=== PATIENT | male | born 1935 | race Caucasian/White ===

== ENCOUNTER 2017-04-13 00:29 | Inpatient (IN) | payer OTHER ==
[2017-04-13] MEDS ORDERED: ONDANSETRON 4 MG/2 ML VIAL ONE ×2 (00:34→03:48)
[2017-04-13] MEDS ORDERED: HYDROmorphONE/DILAUDID 1 MG/ML INJ ONE (00:35)
[2017-04-13] MEDS ORDERED: ONDANSETRON 4 MG/2 ML VIAL IVP ONE ×2 (00:36→01:47)
[2017-04-13] MEDS ORDERED: NS 1,000 ML IV ONE ×2 (00:36→01:47)
[2017-04-13] MEDS ORDERED: HYDROmorphONE/DILAUDID 1 MG/ML INJ IVP ONE ×3 (00:36→03:05)
--- NOTE | 2017-04-13 00:43 | EDPHY ---
H & P HPI/ROS: HPI CHIEF COMPLAINT: Nausea, vomiting, abdominal pain HISTORY OF PRESENT ILLNESS: This patient is a very pleasant 82-year-old male presents emergency room with nausea vomiting and severe 10/10 diffuse abdominal pain. Patient reports that around 11 o'clock at night this pain started with associated nausea he vomited 1 time. Nonbilious nonbloody. The pain does wrap around to his back. He denies any chest pain or shortness of breath. His main complaint is severe 10/10 abdominal pain mid abdomen. He denies groin pain or leg pain. Denies arm pain denies chest pain shortness of breath or neck pain. Pain is relentless since 11:00 p.m.. States feels very similar to gallstone pancreatitis or that time he had retained stone. I presents by EMS to the emergency room hemodynamically stable. Past Medical History: COPD, gallstone pancreatitis, common bile duct stone, pulmonary embolism, hypertension, ÁLVARO, pacemaker for bradycardia Past Surgical History: Cholecystectomy, pacemaker Social History: Denies daily use drugs alcohol tobacco products. Family History: Noncontributory ROS REVIEW OF SYSTEMS: A comprehensive 10 point review of systems is otherwise negative aside from elements mentioned in the history of present illness. Exam Constitutional writhing in pain, yelling, triage nursing summary reviewed, vital signs reviewed, awake/alert. Eyes normal conjunctivae and sclera, EOMI, PERRLA. HENT normal inspection, atraumatic, moist mucus membranes, no epistaxis, neck supple/ no meningismus, no raccoon eyes. Respiratory clear to auscultation bilaterally, normal breath sounds, no respiratory distress, no wheezing. Cardiovascular rate normal, regular rhythm, no murmur, no edema, distal pulses normal. Gastrointestinal diffusely tender no rebound, normal bowel sounds, no distension, no pulsatile mass. Genitourinary no CVA tenderness. Musculoskeletal no midline vertebral tenderness, full range of motion, no calf swelling, no tenderness of extremities, no meningismus, good pulses, neurovascularly intact. Skin pink, warm, & dry, no rash, skin atraumatic. Neurologic awake, alert and oriented x 3, AAOx3, moves all 4 extremities equally, motor intact, sensory intact, CN II-XII intact, normal cerebellar, normal vision, normal speech. Psychiatric normal mood/affect. Heme/Lymph/Immune no lymphadenopathy. Differential diagnosis includes but is not limited to and in no particular order : Bowel perforation, ruptured AAA, aortic dissection, Bowel obstruction, appendicitis, gallbladder disease, diverticulitis, colitis, enteritis, perforated viscus, gastritis, GERD, esophagitis, urinary tract infection, pyelonephritis, kidney stones Medical Decision Making: Plan for this patient blood pressure both arms, full ekg monitor tech, EKG, 2 large-bore IVs, IV fluid bolus 1 L normal saline, IV Zofran for nausea, IV Dilaudid for pain control. Troponin. Chest x-ray and KUB. And then proceed with CT scan abdomen pelvis with IV contrast. Re-evaluation: EKG interpretation by me on record in [employer] system. Impression time of EKG 0044, this is an atrially paced rhythm first-degree AV block present. SD interval 236. I do not appreciate acute ischemia. No ST elevation. No ST depression. No prolonged intervals. No significant T-wave abnormality. CT scan of the abdomen pelvis with IV contrast The results of the study are shows small bowel air-fluid levels mid abdomen but no dilatation. No evidence of obstruction. Otherwise no acute inflammatory process. Pneumobilia seen but otherwise no free air no free fluid. The study was read by Dr. Stephenson. I viewed the images myself on the PACS system. [id number]: I did consult General surgery Dr. Santiago for evaluation of this patient's abdominal pain he is exquisitely tender on exam and has peritoneal signs. CT scan did not reveal significant source of acute abdominal pain. Dr. Santiago has seen evaluated the patient. Plan to go to the OR for exploratory laparotomy. IV Invanz ordered. Patient hemodynamically stable this time. Pain control with IV Dilaudid and IV fluids. Still has ongoing pain. Source: Patient, EMS - Personal History Tetanus Vaccine Date: current - Medical/Surgical History Hx Asthma: No Hx Chronic Respiratory Disease: Yes Hx Diabetes: Yes Hx Cardiac Disease: Yes Hx Renal Disease: No Hx Cirrhosis: No Hx Alcoholism: No Hx HIV/AIDS: No Hx Splenectomy or Spleen Trauma: No Other PMH: COPD,sleep-apnea,pacemaker,varicose viens,High Chol,HTN, Diabetes type 2, anemia,pulm emboli, pancreatitis. - Social History Smoking Status: Never smoked Constitutional: Initial Vital Signs Temperature (C) 36.7 C 10/07/17 00:34 Heart Rate 72 04/13/17 00:34 Respiratory Rate 16 04/13/17 00:34 Blood Pressure 116/63 04/13/17 00:34 O2 Sat (%) 96 04/13/17 00:34 O2 Delivery Mode Nasal Cannula O2 (L/minute) 2 Allergies/Adverse Reactions: bacitracin [From Neosporin] Allergy (Severe, Verified 04/13/17 00:47) INFECTION bacitracin zinc [From Neosporin] Allergy (Severe, Verified 04/13/17 00:47) INFECTION gramicidin D [From Neosporin] Allergy (Severe, Verified 04/13/17 00:47) INFECTION iodine [Iodine] Allergy (Severe, Verified 04/13/17 00:47) FELT VERY HOT neomycin sulfate [From Neosporin] Allergy (Severe, Verified 04/13/17 00:47) INFECTION polymyxin B [From Neosporin] Allergy (Severe, Verified 04/13/17 00:47) INFECTION polymyxin B sulfate [From Neosporin] Allergy (Severe, Verified 04/13/17 00:47) INFECTION balsam curtis Allergy (Intermediate, Verified 04/13/17 00:47) PIMPLES ON LEGS Home Medications: Medication Instructions Recorded Cyanocobalamin (Vitamin B-12) 1,000 mcg IM Q30D 08/16/11 [Cyanocobalamin Injection] FLUoxetine [Prozac 20 MG (*)] 20 mg PO DAILY 08/16/11 Fluocinonide 0.05% [Lidex 0.05% 1 dionisio TP DAILY PRN 08/16/11 Cream] amLODIPine BESYLATE [Norvasc 10 mg 10 mg PO DAILY 08/16/11 (*)] Atorvastatin Calcium [Lipitor 10 10 mg PO HS 09/16/15 mg (*)] Fluticasone Nasal [Flonase Nasal 1 sprays NASAL HS PRN 09/16/15 [place]] Lisinopril [Zestril 20 mg (*)] 20 mg PO HS 09/16/15 metFORMIN HCL [Metformin HCl ER] 500 mg PO BIDMEAL 09/16/15 Apixaban [Eliquis] 5 mg PO BID #0 tab 03/11/16 Ursodiol [Actigall 300MG (*)] 600 mg PO BID #60 cap 03/13/16 Medical Decision Making - Data Points Laboratory Results: Laboratory Results 04/13/17 00:40 04/13/17 00:40 Medications Given: Amlodipine Besylate (Norvasc) 10 mg PO DAILY MARISELA Stop: 10/10/17 08:59 Last Admin: 04/14/17 09:48 Dose: Not Given Atorvastatin Calcium (Lipitor) 10 mg PO HS MARISELA Stop: 10/10/17 20:59 Last Admin: 04/14/17 19:50 Dose: Not Given Hydromorphone HCl (Dilaudid) 0.2 - 0.4 mg IVP Q2HRS PRN PRN Reason: Pain, Severe Unable to Take PO Stop: 04/23/17 05:57 Last Admin: 04/14/17 21:11 Dose: 0.4 mg Potassium Chloride/Dextrose/Sod Cl (D5w 1/2 Ns W/ 20 Kcl/L) 1,000 mls @ 125 mls /hr IV CONT MARISELA Stop: 10/10/17 05:59 Last Admin: 04/14/17 06:05 Dose: 1,000 mls Ertapenem 1 gm/ Sodium (Chloride) 100 mls @ 200 mls/hr IV DAILY MARISELA PRN Reason: Protocol Stop: 05/13/17 08:59 Last Admin: 04/14/17 09:09 Dose: 100 mls Famotidine/Sodium Chloride (Pepcid 20 Mg (Premix)) 50 mls @ 200 mls/hr IV Q12 MARISELA Stop: 10/11/17 08:59 Last Admin: 04/14/17 21:11 Dose: 50 mls Lisinopril (Zestril) 20 mg PO HS [facility] Stop: 10/10/17 20:59 Last Admin: 04/13/17 20:26 Dose: Not Given Discontinued Medications Bupivacaine HCl (Sensorcaine 0.5% Vial) Confirm Administered Dose 30 ml .ROUTE .STK-MED ONE Stop: 04/13/17 03:34 Last Admin: 04/13/17 06:57 Dose: 30 ml Hydromorphone HCl (Dilaudid) 1 mg IVP EDNOW ONE Stop: 04/13/17 00:37 Last Admin: 04/13/17 00:55 Dose: 1 mg Hydromorphone HCl (Dilaudid) 1 mg IVP EDNOW ONE Stop: 04/13/17 01:48 Last Admin: 04/13/17 01:54 Dose: 1 mg Hydromorphone HCl (Dilaudid) 1 mg IVP EDNOW ONE Stop: 04/13/17 03:06 Last Admin: 04/13/17 03:07 Dose: 1 mg Sodium Chloride (Ns) 1,000 mls @ 0 mls/hr IV EDNOW ONE; Wide Open PRN Reason: Protocol Stop: 04/13/17 00:37 Last Admin: 04/13/17 00:58 Dose: 1,000 mls Sodium Chloride (Ns) 1,000 mls @ 0 mls/hr IV ONCE ONE PRN Reason: Wide Open Stop: 04/13/17 01:48 Last Admin: 04/13/17 02:03 Dose: 1,000 mls Ertapenem 1 gm/ Sodium (Chloride) 100 mls @ 200 mls/hr IV EDNOW ONE PRN Reason: Protocol Stop: 04/13/17 03:04 Last Admin: 04/13/17 03:06 Dose: 100 mls Ondansetron HCl (Zofran) 4 mg IVP EDNOW ONE Stop: 04/13/17 00:37 Last Admin: 04/13/17 00:55 Dose: 4 mg Ondansetron HCl (Zofran) 4 mg IVP EDNOW ONE Stop: 04/13/17 01:48 Last Admin: 04/13/17 01:54 Dose: 4 mg Departure - Departure Disposition: [facility] Inpatient Acute Clinical Impression: Abdominal pain Qualifiers: Abdominal location: generalized Qualified Code(s): R10.84 - Generalized abdominal pain Condition: Serious
--- NOTE | 2017-04-13 00:48 | CPEKG ---
Heart Rate: 65 RR Interval: 923 P-R Interval: 236 QRSD Interval: 102 QT Interval: 436 QTC Interval: 454 P [place]: 0 QRS [place]: 56 T Wave [place]: 66 EKG Severity - ABNORMAL ECG - EKG Impression: ATRIAL-PACED COMPLEXES EKG Impression: FIRST DEGREE AV BLOCK Electronically Signed By: Cachorro Nevarez 13-Apr-2017 07:06:00
[2017-04-13 01:02] LABS: INR 1.11 (0.83-1.16); PROTIME(PATIENT) 14.2 SEC (12.0-15.0)
[2017-04-13 01:03] LABS: APTT 29.3 SEC (23.0-38.0)
[2017-04-13 01:08] LABS: ALANINE AMINOTRANSFERASE 36 IU/L (21-72); ALBUMIN 4.2 g/dL (3.5-5.0); ALKALINE PHOSPHATASE 78 IU/L (38-126); ANION GAP 14 mEq/L (8-16); ASPARTATE AMINOTRANSFERASE 22 IU/L (17-59); BILIRUBIN,TOTAL 0.8 mg/dL (0.1-1.4); BILIRUBIN-CONJUGATED 0.3 mg/dL (0.0-0.5); BILIRUBIN-UNCONJUGATED 0.5 mg/dL (0.0-1.1); CALCIUM 9.8 mg/dL (8.5-10.4); CARBON DIOXIDE 21 mEq/l (22-31); CHLORIDE 102 mEq/L (97-110); CREATININE 1.1 mg/dL (0.7-1.3); GLOMERULAR FILTRATION RATE > 60; GLUCOSE 161 mg/dL (70-100); POTASSIUM 4.1 mEq/L (3.5-5.2); SODIUM 137 mEq/L (134-144); TOTAL PROTEIN 7.1 g/dL (6.3-8.2)
[2017-04-13] MEDS ORDERED: IOPAMIDOL (ISOVUE-300) 100 ML BTL ONE (01:08)
[2017-04-13 01:14] LABS: % IMMATURE GRANULYOCYTES 0.3 % (0.0-1.1); ABSOLUTE IMMATURE GRANULOCYTES 0.04 10^3/uL (0.00-0.10); ADD DIFF? NO; ADD MORPH? NO; ADD SCAN? NO; ATYPICAL LYMPHOCYTE FLAG 0 (0-99); FRAGMENT RBC FLAG 0 (0-99); HEMATOCRIT 44.4 % (40.0-51.0); HEMOGLOBIN 15.4 g/dL (13.7-17.5); LEFT SHIFT FLG 0 (0-99); LIPEMIA HEMOLYSIS FLAG 90 (0-99); MEAN CELL HEMOGLOBIN 32.5 pg (27.9-34.1); MEAN CELL HEMOGLOBIN CONCENTR. 34.7 g/dL (32.4-36.7); MEAN CELL VOLUME 93.7 fL (81.5-99.8); MEAN PLATELET VOLUME 10.6 fL (8.7-11.7); PLATELET CLUMPS FLAG 10 (0-99); PLATELET COUNT 251 10^3/uL (150-400); RED BLOOD CELL COUNT 4.74 10^6/uL (4.40-6.38); RED CELL DISTRIBUTION WIDTH 13.2 % (11.5-15.2)
[2017-04-13 01:20] LABS: TROPONIN I < 0.012 ng/mL (0.000-0.034)
[2017-04-13] MEDS ORDERED: ERTAPENEM 1 GM in NS 100 ML IV ONE (02:35)
--- NOTE | 2017-04-13 03:07 | PDGENHP ---
History and Physical - Chief Complaint 04/16 abdominal pain - History of Present Illness 82yo M with MMP presents with excruciating abdoming pain since this PM. Ate dinner, felt fine, around 11PM started to have very bad abdominal pain which has been resistant even to 1mg IV dilaudid. is also associated with nausea and vomiting. Has had abd pain in the past but this is markedly worse both per the patient and his family. In addition to the pain, endorses chills, denies fevers. History Information - Allergies/Home Medication List Allergies/Adverse Reactions: bacitracin [From Neosporin] Allergy (Severe, Verified 04/13/17 00:47) INFECTION bacitracin zinc [From Neosporin] Allergy (Severe, Verified 04/13/17 00:47) INFECTION gramicidin D [From Neosporin] Allergy (Severe, Verified 04/13/17 00:47) INFECTION iodine [Iodine] Allergy (Severe, Verified 04/13/17 00:47) FELT VERY HOT neomycin sulfate [From Neosporin] Allergy (Severe, Verified 04/13/17 00:47) INFECTION polymyxin B [From Neosporin] Allergy (Severe, Verified 04/13/17 00:47) INFECTION polymyxin B sulfate [From Neosporin] Allergy (Severe, Verified 04/13/17 00:47) INFECTION balsam curtis Allergy (Intermediate, Verified 04/13/17 00:47) PIMPLES ON LEGS Home Medications: Cyanocobalamin (Vitamin B-12) [Cyanocobalamin Injection] 1,000 mcg IM Q30D 08/16 [Last Taken 02/25/16] FLUoxetine [Prozac 20 MG (*)] 20 mg PO DAILY 08/16/11 [Last Taken 03/10/16 08:00 ] Fluocinonide 0.05% [Lidex 0.05% Cream] 1 dionisio TP DAILY PRN 08/16/11 [Last Taken Unknown] amLODIPine BESYLATE [Norvasc 10 mg (*)] 10 mg PO DAILY 08/16/11 [Last Taken 09/20 08:00] Atorvastatin Calcium [Lipitor 10 mg (*)] 10 mg PO HS 09/16/15 [Last Taken ] Fluticasone Nasal [Flonase Nasal [place]] 1 sprays NASAL HS PRN 09/16/15 [Last Taken Unknown] Lisinopril [Zestril 20 mg (*)] 20 mg PO HS 09/16/15 [Last Taken 03/09/16] metFORMIN HCL [Metformin HCl ER] 500 mg PO BIDMEAL 09/16/15 [Last Taken 08:00] I have personally reviewed and updated: family history, medical history, social history, surgical history Past Medical History: on eliquis for DVT/PE - Surgical History Additional surgical history: lap jerome - Social History Smoking Status: Never smoked Review of Systems Review of Systems: ROS: 10pt was reviewed & negative except for what was stated in HPI & below Physical Exam Physical Exam: Temp Pulse Resp BP Pulse Ox 36.5 C 64 16 132/67 H 93 04/13/17 02:37 04/13/17 02:37 04/13/17 02:37 04/13/17 02:37 04/13/17 02:37 Constitutional: uncomfortable, other (very distressed, ) Eyes: PERRL, anicteric sclera Ears, Nose, Mouth, Throat: moist mucous membranes Cardiovascular: regular rate and rhythym Respiratory: no respiratory distress Gastrointestinal: other (rebound, guarding, peritoneal. Jumps off the bed with minimal palpation ) Skin: warm, no rashes or abrasions Musculoskeletal: full muscle strength Neurologic: AAOx3 Psychiatric: interacting appropriately, anxious Lymph, Heme, Immunologic: no cervical LAD Lab Data & Imaging Review 04/13/17 00:40 04/13/17 00:40 WBC 12.99 10^3/uL (3.80-9.50) H 04/13/17 00:40 RBC 4.74 10^6/uL (4.40-6.38) 04/13/17 00:40 Hgb 15.4 g/dL (13.7-17.5) 04/13/17 00:40 POC Hgb 16.3 gm/dL (13.7-17.5) 04/13/17 00:37 Hct 44.4 % (40.0-51.0) 04/13/17 00:40 POC Hct 48 % (40-51) 04/13/17 00:37 MCV 93.7 fL (81.5-99.8) 04/13/17 00:40 MCH 32.5 pg (27.9-34.1) 04/13/17 00:40 MCHC 34.7 g/dL (32.4-36.7) 04/13/17 00:40 RDW 13.2 % (11.5-15.2) 04/13/17 00:40 Plt Count 251 10^3/uL (150-400) 04/13/17 00:40 MPV 10.6 fL (8.7-11.7) 04/13/17 00:40 Neut % (Auto) 67.2 % (39.3-74.2) 04/13/17 00:40 Lymph % (Auto) 22.4 % (15.0-45.0) 04/13/17 00:40 [place] % (Auto) 7.5 % (4.5-13.0) 04/13/17 00:40 Eos % (Auto) 2.2 % (0.6-7.6) 04/13/17 00:40 Baso % (Auto) 0.4 % (0.3-1.7) 04/13/17 00:40 Nucleat RBC Rel Count 0.0 % (0.0-0.2) 04/13/17 00:40 Absolute Neuts (auto) 8.74 10^3/uL (1.70-6.50) H 04/13/17 00:40 Absolute Lymphs (auto) 2.91 10^3/uL (1.00-3.00) 04/13/17 00:40 Absolute Monos (auto) 0.97 10^3/uL (0.30-0.80) H 04/13/17 00:40 Absolute Eos (auto) 0.28 10^3/uL (0.03-0.40) 04/13/17 00:40 Absolute Basos (auto) 0.05 10^3/uL (0.02-0.10) 04/13/17 00:40 Absolute Nucleated RBC 0.00 10^3/uL (0-0.01) 04/13/17 00:40 Immature Gran % 0.3 % (0.0-1.1) 04/13/17 00:40 Immature Gran # 0.04 10^3/uL (0.00-0.10) 04/13/17 00:40 PT 14.2 SEC (12.0-15.0) 04/13/17 00:40 INR 1.11 (0.83-1.16) 04/13/17 00:40 APTT 29.3 SEC (23.0-38.0) 04/13/17 00:40 VBG Lactic Acid 2.5 mmol/L (0.7-2.1) H 04/13/17 00:40 POC Sodium 139 mEq/L (134-144) 04/13/17 00:37 Sodium 137 mEq/L (134-144) 04/13/17 00:40 POC Potassium 3.8 mEq/L (3.3-5.0) 04/13/17 00:37 Potassium 4.1 mEq/L (3.5-5.2) 04/13/17 00:40 POC Chloride 102 mEq/L (97-110) 04/13/17 00:37 Chloride 102 mEq/L (97-110) 04/13/17 00:40 Carbon Dioxide 21 mEq/l (22-31) L 04/13/17 00:40 Anion Gap 14 mEq/L (8-16) 04/13/17 00:40 POC BUN 22 mg/dL (7-23) 04/13/17 00:37 BUN 21 mg/dL (7-23) 04/13/17 00:40 Creatinine 1.1 mg/dL (0.7-1.3) 04/13/17 00:40 POC Creatinine 1.1 mg/dL (0.7-1.3) 04/13/17 00:37 Estimated GFR > 60 04/13/17 00:40 Glucose 161 mg/dL (70-100) H 04/13/17 00:40 POC Glucose 161 mg/dL (70-100) H 04/13/17 00:37 Calcium 9.8 mg/dL (8.5-10.4) 04/13/17 00:40 Total Bilirubin 0.8 mg/dL (0.1-1.4) 04/13/17 00:40 Conjugated Bilirubin 0.3 mg/dL (0.0-0.5) 04/13/17 00:40 Unconjugated Bilirubin 0.5 mg/dL (0.0-1.1) 04/13/17 00:40 AST 22 IU/L (17-59) 04/13/17 00:40 ALT 36 IU/L (21-72) 04/13/17 00:40 Alkaline Phosphatase 78 IU/L (38-126) 04/13/17 00:40 Troponin I < 0.012 ng/mL (0.000-0.034) 04/13/17 00:40 Total Protein 7.1 g/dL (6.3-8.2) 04/13/17 00:40 Albumin 4.2 g/dL (3.5-5.0) 04/13/17 00:40 Lipase 172 IU/L (23-300) 04/13/17 00:40 Visualized and Interpreted imaging results: Yes Interpretation: CT: some dilated SB loops, no free air or free fluid, pneumobilia Assessment & Plan Assessment: Abdominal pain (Acute) Plan: 82yo M with MMP with pain out of proportion to exam. - Objectively, the patient is very under-whelming. His exam however is very concerning as he has classic peritoneal signs and I am concerned that there is some type of vascular compromise going on. Given this will plan for operative exploration. I discussed the RBA with him and his family. He is on Eliquis which does not have a reversal agent, I dont feel we have time to wait for reversal before proceeding. Will have blood products available and if needed will use PCC. Will also ask IM to assist with management post-op as the patient has many medical issues
[2017-04-13] MEDS ORDERED: BUPIVACAINE 0.5% 30 ML SDV ONE (03:33)
--- NOTE | 2017-04-13 03:46 | PDANEPAE ---
ANE History of Present Illness Patient presents for ex laparoscopy ANE Past Medical History - Pulmonary History Hx Oxygen in Use at Home: Yes O2 in Use at Home (L/minute): 3 Hx Sleep Apnea: Yes - Endocrine History Hx Diabetes: Yes - Chronic Pain History Chronic Pain: No ANE Review of Systems Review of Systems: ANE Patient History - Allergies Allergies/Adverse Reactions: bacitracin [From Neosporin] Allergy (Severe, Verified 04/13/17 00:47) INFECTION bacitracin zinc [From Neosporin] Allergy (Severe, Verified 04/13/17 00:47) INFECTION gramicidin D [From Neosporin] Allergy (Severe, Verified 04/13/17 00:47) INFECTION iodine [Iodine] Allergy (Severe, Verified 04/13/17 00:47) FELT VERY HOT neomycin sulfate [From Neosporin] Allergy (Severe, Verified 04/13/17 00:47) INFECTION polymyxin B [From Neosporin] Allergy (Severe, Verified 04/13/17 00:47) INFECTION polymyxin B sulfate [From Neosporin] Allergy (Severe, Verified 04/13/17 00:47) INFECTION balsam curtis Allergy (Intermediate, Verified 04/13/17 00:47) PIMPLES ON LEGS - Home Medications Home Medications: Cyanocobalamin (Vitamin B-12) [Cyanocobalamin Injection] 1,000 mcg IM Q30D 08/16 [Last Taken 02/25/16] FLUoxetine [Prozac 20 MG (*)] 20 mg PO DAILY 08/16/11 [Last Taken 03/10/16 08:00 ] Fluocinonide 0.05% [Lidex 0.05% Cream] 1 dionisio TP DAILY PRN 08/16/11 [Last Taken Unknown] amLODIPine BESYLATE [Norvasc 10 mg (*)] 10 mg PO DAILY 08/16/11 [Last Taken 09/20 08:00] Atorvastatin Calcium [Lipitor 10 mg (*)] 10 mg PO HS 09/16/15 [Last Taken ] Fluticasone Nasal [Flonase Nasal [place]] 1 sprays NASAL HS PRN 09/16/15 [Last Taken Unknown] Lisinopril [Zestril 20 mg (*)] 20 mg PO HS 09/16/15 [Last Taken 03/09/16] metFORMIN HCL [Metformin HCl ER] 500 mg PO BIDMEAL 09/16/15 [Last Taken 08:00] - NPO status NPO Status: no food or drink >8 hours NPO Since - Liquids (Date): 04/13/17 NPO Since - Liquids (Time): 21:30 NPO Since - Solids (Date): 04/13/17 NPO Since - Solids (Time): 19:00 - Anes Hx Anes Hx: no prior problems - Smoking Hx Smoking Status: Never smoked ANE Labs/Vital Signs - Labs Result Diagrams: 04/13/17 00:40 04/13/17 00:40 - Vital Signs Blood Pressure: 119/75 Heart Rate: 69 Respiratory Rate: 16 O2 Sat (%): 91 Height: 180.34 cm Weight: 111.13 kg ANE Physical Exam - Airway Neck exam: decreased ROM Mallampati Score: Class 2 - Pulmonary Pulmonary: respiratory distress - Cardiovascular Cardiovascular: regular rate and rhythym - ASA Status ASA Status: IV, E ANE Anesthesia Plan Anesthesia Plan: general endotracheal anesthesia Lines/Monitors: arterial line (RBA discussed)
[2017-04-13] MEDS ORDERED: fentaNYL 100 MCG/2 ML INJ ONE (03:48)
[2017-04-13] MEDS ORDERED: ETOMIDATE 20 MG/10 ML VIAL ONE (03:48)
[2017-04-13] MEDS ORDERED: ROCURONIUM 50 MG/5 ML VIAL ONE (03:48)
[2017-04-13] MEDS ORDERED: DEXAMETHASONE 4 MG/ML VIAL ONE (03:48)
[2017-04-13] MEDS ORDERED: PHENYLEPHRINE HCL 100 MCG/ML SYR ONE (03:49)
[2017-04-13] MEDS ORDERED: SUCCINYLCHOLINE CHLORIDE*ANESTHESIA ONLY*200 MG/10 ML SYR IVP ONE (03:56)
[2017-04-13] MEDS ORDERED: PROPOFOL 200 MG/20 ML VIAL ONE (03:58)
[2017-04-13] MEDS ORDERED: HYDROmorphONE/DILAUDID 2 MG/ML INJ ONE (05:01)
[2017-04-13 05:30] LABS: BASE EXCESS -7.9 mEq/L (-2.5-2.5); BICARBONATE 19 mEq/L (22-26); MEASURED OXYGEN SATURATION 95 % (92-95); PCO2 43 mmHg (34-38); PO2 97 mmHg (65-75); TCO2 20 mEq/L (23-27)
[2017-04-13] MEDS ORDERED: SUGAMMADEX SODIUM 200 MG/2 ML VIAL IVP ONE (05:34)
[2017-04-13 05:40] LABS: % IMMATURE GRANULYOCYTES 0.2 % (0.0-1.1); ABSOLUTE IMMATURE GRANULOCYTES 0.02 10^3/uL (0.00-0.10); ADD DIFF? NO; ADD MORPH? NO; ADD SCAN? NO; ATYPICAL LYMPHOCYTE FLAG 0 (0-99); FRAGMENT RBC FLAG 0 (0-99); HEMATOCRIT 39.6 % (40.0-51.0); HEMOGLOBIN 13.3 g/dL (13.7-17.5); LEFT SHIFT FLG 20 (0-99); LIPEMIA HEMOLYSIS FLAG 80 (0-99); MEAN CELL HEMOGLOBIN 32.4 pg (27.9-34.1); MEAN CELL HEMOGLOBIN CONCENTR. 33.6 g/dL (32.4-36.7); MEAN CELL VOLUME 96.4 fL (81.5-99.8); MEAN PLATELET VOLUME 10.4 fL (8.7-11.7); PLATELET CLUMPS FLAG 0 (0-99); PLATELET COUNT 173 10^3/uL (150-400); RED BLOOD CELL COUNT 4.11 10^6/uL (4.40-6.38); RED CELL DISTRIBUTION WIDTH 13.4 % (11.5-15.2)
--- NOTE | 2017-04-13 06:05 | POSTOPPROG ---
Post Op Note Date of Operation: 04/13/17 Surgeon: Clemente Santiago Anesthesiologist: Ton Anesthesia: GET(General Endotracheal) Pre-op Diagnosis: peritonitis Post-op Diagnosis: focal small bowel necrosis, peritonitis Procedure: ex-lap, small bowel rsxn, washout Findings: 12" area with 2 focally necrotic sites, resected. Washout Inf/Abcess present in the surg proc area at time of surgery?: Yes Depth: Organ Space EBL: Minimal Total fluids administered: 3000cc washout Specimen(s): small bowel peritoneal fluid for culture
[2017-04-13] MEDS: D5W 1/2 NS W/ 20 KCl/L 1,000 ML IV SCH ×3 (07:01→23:27)
[2017-04-13] MEDS ORDERED: FLUTICASONE NASAL 120 SPRAYS/16 GM MDI EACHNARE PRN (07:02)
--- NOTE | 2017-04-13 07:17 | GOP ---
[f rep st] OPERATIVE REPORT DATE OF OPERATION: 04/13/2017 SURGEON: Clemente Santiago MD ASSISTANT KITCHEN MANAGER: None. ANESTHESIA: General endotracheal provided by Dr. Camilo. PREOPERATIVE DIAGNOSIS: Peritonitis. POSTOPERATIVE DIAGNOSIS: Focally necrotic small bowel with peritonitis. PROCEDURE PERFORMED: Exploratory laparoscopy converted to laparotomy with small bowel resection and abdominal washout. SPECIMENS: 1. Small bowel. 1. Peritoneal fluid for culture. ESTIMATED BLOOD LOSS: 5 cc. FINDINGS: Upon entering the patient's abdomen, the majority of the small bowel appeared injected and dilated. There was purulent, foul-smelling fluid in all 4 quadrants. I systematically ran the bowel and identified the area with focal necrosis x2 and it was resected and reanastomosed in a [id number] fashion. DESCRIPTION OF PROCEDURE: The patient was greeted in the preoperative suite. Once again, risks, benefits, and alternatives were discussed. Consent was signed. He was then brought back to the operative suite, placed on the OR table in supine position. After all anesthesia machines, including SCDs, were on and functioning, World [employer] time-out was performed. After successful induction of general anesthesia, antibiotics were given on-call to the operating room. I prepped and draped the abdomen in typical sterile fashion. I entered the abdomen with a Veress needle just inferior to the umbilicus and achieved pneumoperitoneum to 15 mmHg CO2, which was well tolerated by the patient. Through this, I inserted a 5 mm port. I then inserted 2 additional 5 mm ports, 1 in the left and right mid umbilical quadrant both under direct visualization. Once in the abdomen, I identified purulent fluid in all 4 quadrants with a large fluid collection above the liver. I inspected the abdominal viscera grossly. The majority of the small bowel appeared injected, but not focally involved. I traced the taeniae inferiorly and identified the appendix, which was bathed in a pool of purulent fluid but not involved and it appeared normal. I systematically ran the bowel, and I identified a site which seemed to correlate with the CT scan. There was an approximate 12-inch area of small bowel which was injected and had 2 sites on the antimesenteric border which appeared to be focally necrotic. I identified no other pathology at this site. My decision was made. At this point in time, I increased my midline incision. I placed a wound protector. I delivered this area out and inspected it, and again it appeared necrotic and nonviable. I then removed this section using DANIELLA 75 staplers on either side, took the mesentery down with the Harmonic Scalpel. I reanastomosed it with a single fire of the DANIELLA 75 stapler and closed my common enterotomy in the same fashion, noting excellent hemostasis and wide patency of my enteroenterotomy. The mesenteric defect was then closed with a running 3-0 Vicryl stitch. I did oversew my staple line with multiple interrupted 3-0 Vicryl stitches. After this was done, I delivered it back into the abdominal cavity. I then re- insufflated and irrigated the abdomen with 3 L warm normal saline, removing all visible purulent fluid from all 4 quadrants, namely, the pelvis and the right upper quadrant. I inspected my anastomosis which appeared to be intact and hemostatic. I then removed my port sites. I closed my midline wound with a #1 PDS suture, noting excellent fascial reapproximation. The skin was closed with tony. Sterile dressings were placed and the patient was transported out of the operating room, extubated to the ICU. DRAINS: None. /[id number]/MODL MTDD
[2017-04-13] MEDS: ERTAPENEM 1 GM in NS 100 ML IV SCH (09:22)
[2017-04-13 09:57] LABS: COLOR YELLOW; LEUKOCYTE ESTERASE,URINE NEGATIVE (NEGATIVE); NITRITE,URINE NEGATIVE (NEGATIVE)
[2017-04-13 09:58] LABS: BACTERIA TRACE /hpf (NONE SEEN); MUCUS TRACE /lpf (NONE-1+); RBC,URINE 50-182 /hpf (0-3); YEAST PRESENT /hpf (NONE SEEN)
--- NOTE | 2017-04-13 11:53 | GCON ---
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 The patient is a pleasant [age]-year-old, white male with a past medical history including DVT, PE, multiple drug allergies, depres carolin, hypertension, hypercholesterolemia, and diabetes. He presented to the emergency room with excr uciating abdominal pain. He was brought to the emergency room and subsequently admitted. He went to the operating room where he underwent small bowel resection with exploratory lap and washout. He wa s also found to have peritonitis. Currently is on BiPAP for his obstructive sleep apnea. His pain i s tolerable. He denies any breathlessness. There was no chest pain, pleuritic-type chest pain, or a ngina equivalent. No fever, no night sweats. PAST MEDICAL HISTORY: Significant for obstructive sleep apnea, chronic obstructive pulmonary disease , hypertension, and diabetes. ALLERGIES: Bacitracin, Neosporin, iodine, neomycin, polymyxin B. HOME MEDICATIONS: Include cyanocobalamin, fluoxetine, amlodipine, atorvastatin, fluticasone nasal, l isinopril, and metformin. SOCIAL HISTORY: No history of tobacco use. Infrequent alcohol use. He is and has excellent family support. PHYSICAL EXAMINATION: VITAL SIGNS: Blood pressure is 108/63, pulse is 66, respirations 21, temperat ure is 37.0, oxygen saturation % on CPAP. GENERAL: A well-developed, well-nourished 82-y ear-old white male who is resting comfortably in no acute distress. HEENT: Eyes are PERRLA, EOMI. Throat exam is deferred secondary to CPAP. NECK: Supple. No cervical adenopathy. HEART: Regular rate and rhythm with a 2/6 systolic murmur at the left sternal border without radiation. LUNGS: Dim inished breath sounds but no wheeze. ABDOMEN: Soft and appropriately tender. Bowel sounds are dimi nished. EXTREMITIES: No clubbing, cyanosis, or edema. LABORATORIES: White count is 10, hemoglobin 13, hematocrit 39, platelet count is 173. Sodium 139, p otassium 3.8, chloride 102, CO2 is 21, BUN 22, creatinine is 1.1, and glucose is 161. Arterial blood gas: pH 7.26, pCO2 of 43, pO2 of 97, bicarb 20, and oxygen saturation is 95%. IMPRESSION: 1. Abdominal pain with small-bowel resection. 2. Peritonitis. 3. Obstructive sleep apnea. 4. History of chronic obstructive pulmonary disease. 5. Multiple drug allergies. 6. Hypertension. 7. Diabetes. 8. Hypercholesterolemia. RECOMMENDATIONS: 1. Adequate pain control. 2. Continue BiPAP as needed. 3. DVT and PE prophylaxis. 4. Stress ulcer prophylaxis. 5. Aggressive blood sugar control. 6. Watch blood pressure closely. /[id number]/MODL
--- NOTE | 2017-04-13 12:26 | SOAPPROG ---
SOAP Progress Note Assessment/Plan: Assessment: 82 MALE SP SMALL BOWELL RESECTION/ LOOKS GOOD/ AFEBRILE/ ABD SOFT, SILENT, MILDLY DISTENDED/ WOUND OK UO ADEQUATE Plan:CONTINUE NG, ABX 04/13/17 12:25 Objective: Vital Signs Temp Pulse Resp BP Pulse Ox 37 C 70 21 H 115/54 L 93 04/13/17 08:00 04/13/17 11:00 04/13/17 09:00 04/13/17 11:00 04/13/17 09:00 Microbiology 04/13/17 05:05 Gram Stain - Final Abdomen - Eswab 04/13/17 05:05 Mycobacterial Smear (ELLEN) - Final Abdomen - Eswab Mycobacterial Culture - Final Laboratory Results 04/13/17 05:14 PT 14.2 SEC (12.0-15.0) 04/13/17 00:40 INR 1.11 (0.83-1.16) 04/13/17 00:40 ICD10 Worksheet Patient Problems: Problems Problem Status Onset Abdominal pain Acute Fever and chills Acute Liver function test abnormality Acute Pulmonary embolism Acute
--- NOTE | 2017-04-13 17:45 | ASMTCMCOM ---
CM Note CM Note Notes: Reviewed chart re: d/c poc, pt's progress. Per ICU rounds, pt admitted w/ excruciating abd pain; found to have peritonitis w/ necrotic bowel. Pt s/p sm bowel resection; currently NPO. Pt is w/ supportive family. Discharge needs remain TBD. CM will cont to follow. Date Signed: 04/13/2017 05:45 PM Electronically Signed By:Tarah Andrade RN
[2017-04-13] MEDS: HYDROmorphONE/DILAUDID 1 MG/ML INJ IVP PRN ×2 (17:51→22:19)
[2017-04-13] MEDS: ATORVASTATIN CALCIUM 10 MG TAB PO SCH (20:26)
[2017-04-13] MEDS: LISINOPRIL 20 MG TAB PO SCH (20:26)
[2017-04-14] MEDS: HYDROmorphONE/DILAUDID 1 MG/ML INJ IVP PRN ×5 (03:16→22:20)
[2017-04-14] MEDS: D5W 1/2 NS W/ 20 KCl/L 1,000 ML IV SCH (06:05)
[2017-04-14] MEDS: ERTAPENEM 1 GM in NS 100 ML IV SCH (09:09)
[2017-04-14] MEDS: FAMOTIDINE 20 MG/NACL 50 ML IV SCH ×2 (09:09→21:11)
--- NOTE | 2017-04-14 09:27 | PDINTPN ---
[employer] Progress Note Assessment/Plan: Assessment/plan: * Status post small bowel resection * Obstructive sleep apnea * Chronic obstructive pulmonary disease * Respiratory-stable on minimal oxygen * Hypertension * Diabetes * Pain-well controlled * PT/OT * Out of bed * Disposition-likely stable for floor Subjective: Sitting up in chair. Comfortable. Objective: Vital Signs Temp Pulse Resp BP Pulse Ox 37.4 C 68 19 118/78 93 04/14/17 08:00 04/14/17 08:00 04/14/17 08:00 04/14/17 05:48 04/14/17 08:00 Microbiology 04/13/17 05:05 Gram Stain - Final Abdomen - Eswab 04/13/17 05:05 Mycobacterial Smear (ELLEN) - Final Abdomen - Eswab Mycobacterial Culture - Final Laboratory Results 04/13/17 05:14 04/13/17 04/14/17 04/15/17 05:59 05:59 05:59 Intake Total 3369 Output Total 2575 600 Balance 794 -600 PT 14.2 SEC (12.0-15.0) 04/13/17 00:40 INR 1.11 (0.83-1.16) 04/13/17 00:40 Physical Exam - Physical Exam General Appearance: alert, no apparent distress EENT: PERRL/EOMI, normal ENT inspection Neck: non-tender, full range of motion, supple, normal inspection Respiratory: chest non-tender, lungs clear, normal breath sounds Cardiac/Chest: normal peripheral pulses, regular rate, rhythm, systolic murmur Abdomen: normal bowel sounds, soft, No non-tender Male Genitalia: deferred Rectal: deferred Extremities: normal range of motion, non-tender, normal inspection, normal capillary refill ICD10 Worksheet Patient Problems: Problems Problem Status Onset Abdominal pain Acute Fever and chills Acute Liver function test abnormality Acute Pulmonary embolism Acute
--- NOTE | 2017-04-14 09:50 | SOAPPROG ---
SOAP Progress Note Assessment/Plan: Assessment: 82 MALE SP SMALL BOWELL RESECTION/ LOOKS GOOD/ AFEBRILE/ ABD SOFT, SILENT, MILDLY DISTENDED/ WOUND OK UO ADEQUATE Plan:CONTINUE NG, ABX 04/13/17 12:25 04/14/17 09:49 SP SMALL BOWELL RESECTION/ STILL DISTENDED WITH NO FLATUS AND MINIMAL BS/ WOUND OK/ AFEBRILE/ UO GOOD MODERATE NG OUT/ PLAN CONTINUE NPO AND NG Objective: Vital Signs Temp Pulse Resp BP Pulse Ox 36.8 C 72 17 107/73 96 04/14/17 09:47 04/14/17 09:47 04/14/17 09:47 04/14/17 09:48 04/14/17 09:47 Microbiology 04/13/17 05:05 Gram Stain - Final Abdomen - Eswab 04/13/17 05:05 Mycobacterial Smear (ELLEN) - Final Abdomen - Eswab Mycobacterial Culture - Final Laboratory Results 04/13/17 05:14 04/13/17 04/14/17 04/15/17 05:59 05:59 05:59 Intake Total 3369 Output Total 2575 600 Balance 794 -600 PT 14.2 SEC (12.0-15.0) 04/13/17 00:40 INR 1.11 (0.83-1.16) 04/13/17 00:40 ICD10 Worksheet Patient Problems: Problems Problem Status Onset Abdominal pain Acute Fever and chills Acute Liver function test abnormality Acute Pulmonary embolism Acute
--- NOTE | 2017-04-14 14:19 | POSTANESTH ---
Post Anesthetic Evaluation Cardiovascular Status: Similar to Pre-Op Cond Respiratory Status: Requires Airway Assist Level of Consciousness/Mental Status: Alert and Oriented Pain Control: Adequate, Prn Tx Ordered Nausea/Vomiting Control: Adequate, Prn Tx Ordered Complications Possibly Related to Anesthesia: None Noted (Taken directly to ICU for BiPap/CPAP. Alert. Stable.)
[2017-04-14] MEDS: ATORVASTATIN CALCIUM 10 MG TAB PO SCH (19:50)
[2017-04-14] MEDS: LISINOPRIL 20 MG TAB PO SCH (22:17)
[2017-04-15] MEDS: D5W 1/2 NS W/ 20 KCl/L 1,000 ML IV SCH ×2 (00:37→11:20)
[2017-04-15] MEDS: HYDROmorphONE/DILAUDID 1 MG/ML INJ IVP PRN ×2 (02:28→05:39)
[2017-04-15] MEDS: ERTAPENEM 1 GM in NS 100 ML IV SCH (09:46)
[2017-04-15] MEDS: FAMOTIDINE 20 MG/NACL 50 ML IV SCH ×2 (09:47→20:34)
--- NOTE | 2017-04-15 10:47 | SOAPPROG ---
SOAP Progress Note Assessment/Plan: Assessment/Plan: - 82yo M s/p ex-lap, washout for necrotic small bowel - VSS, HDS, afebrile - Pain controlled - Hypoactive bowel sounds, NGT with scant output. Will dc NGT today, still await better bowel function to start diet - IM to see and assist with multiple medical problems. On Eliquis for DVT/PE Hx , need to restart that today, ? whether or not he needs therapeutic LMWH bridge or just proph dose - Floor status. - Cx growing strep, sensitivities pending. Cont Invanz for now 04/15/17 10:45 Subjective: Pain controlled, Denies flatus or BM at this time. Objective: Vital Signs Temp Pulse Resp BP Pulse Ox 36.6 C 69 20 132/67 H 99 04/15/17 08:00 04/15/17 08:00 04/15/17 08:00 04/15/17 08:00 04/15/17 08:00 Microbiology 04/13/17 05:05 Gram Stain - Final Abdomen - Eswab Laboratory Results 04/13/17 05:14 04/14/17 04/15/17 04/16/17 05:59 05:59 05:59 Intake Total 3369 2625 Output Total 3175 2335 Balance 194 290 PT 14.2 SEC (12.0-15.0) 04/13/17 00:40 INR 1.11 (0.83-1.16) 04/13/17 00:40 ICD10 Worksheet Patient Problems: Problems Problem Status Onset Abdominal pain Acute Fever and chills Acute Liver function test abnormality Acute Pulmonary embolism Acute
--- NOTE | 2017-04-15 16:41 | ASMTCMCOM ---
CM Note CM Note Notes: Patient has been up and walking in the halls. Therapy has been ordered. At this time, CM is thinking patient could return home with HC. Spoke to patient's and daughter who are very interested in HC at discharge. They are interested in HC RN, PT, OT. They report that patient listens better to medical staff than his . Contacted [facility] to alert them to patient's needs. His address and phone # as listed are correct. They understand the "homebound" status. Date Signed: 04/15/2017 04:40 PM Electronically Signed By:Gaviota Sam LCSW
[2017-04-15] MEDS ORDERED: methylPREDNISolone SOD SUCC 125 MG/2 ML VIAL IVP ONE (17:13)
[2017-04-15] MEDS ORDERED: IOPAMIDOL (ISOVUE 370) 100 ML BTL IV ONE (17:35)
--- NOTE | 2017-04-15 17:55 | GCON ---
[f rep st] CONSULTATION DATE OF CONSULTATION: 04/15/2017 REASON FOR CONSULTATION: The patient is a pleasant 82-year-old gentleman, I am asked to see by Dr. Francheska Santiago for the evaluation management on postoperative anticoagulation. 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 He underwent an exploratory laparoscopy, that became laparo saar with necrotic small bowel with a small amount of resection. He has been off anticoagulation. Daksha juárez was on Eliquis prior to that. The patient is currently doing well, although bowel function has not returned. His pain is well cont rolled. He denies a history of arterial emboli. He does not have known atrial fibrillation although he does have a pacemaker. He has no history of stroke are other organ injury. REVIEW OF SYSTEMS: Complete 10-point review of systems conducted, negative except as noted in the HP I. PAST MEDICAL HISTORY: 1. Hypertension. 2. DVT and PE times several. 3. ÁLVARO. 4. COPD. 5. Multiple drug allergies. 6. Hypertension. 7. Diabetes. 8. Hypercholesterolemia. ALLERGIES: Bacitracin, iodine, gramicidin, neomycin, polymyxin and Balsam Huma. His allergy to iodi ne is that he felt very hot. HOME MEDICATIONS: Metformin, amlodipine, Ursodiol, lisinopril, Flonase, Lidex cream, Prozac, cyanoco balamin, atorvastatin and Eliquis. SOCIAL HISTORY: Occasional alcohol. Lives in [place]. Has a [place] accent. FAMILY HISTORY: His daughter is healthy and at the bedside. PHYSICAL EXAM: VITAL SIGNS: Blood pressure 116/63, pulse 66, breathing 18 times a minute, 93% on 3 L. Temp 36.8. GENERAL: No acute distress. Lying flat. HEENT: Sclerae anicteric. Oropharynx amber ar. Mucous membranes moist. NECK: Supple. No lymphadenopathy or JVD. LUNGS: Clear to auscultati on bilaterally. HEART: S1, S2 without murmurs. ABDOMEN: Soft. It is modestly distended. Bowel s ounds are hypoactive. There is no rebound or guarding. LOWER EXTREMITIES: Show trace edema bilater ally. Calves are nontender. SKIN: Without rash. NEUROLOGIC: Nonfocal. LABS: INR is 1.1. Sodium 137, potassium 4.1, chloride 102, bicarb 21, BUN 21, creatinine 1.1. LFTs normal. Troponin less than 0.012. Venous lactate was 2.5 on presentation and that was a couple day s ago. White count 10.5, hematocrit 39.6, platelets are 173,000. IMAGING: There is no recent pertinent imaging. I have discussed the case with Clemente Santiago. ASSESSMENT/PLAN: 1. This is an 82-year-old gentleman with history of deep venous thrombosis and pulmonary embolus, wi th necrotic small bowel of uncertain etiology, now status post resection. 2. Management of anticoagulation. The patient warrants resumption of anticoagulation, per Dr. Durbin aller is reasonable to restart. He has an ileus and I am concerned he will do well with pills. I abad ve elected to start weight based enoxaparin 1 mg/kg twice daily. 3. Small bowel infarct. The etiology of this is not certain. I have discussed this with Dr. Kendra ruffin. I am concerned that this represents an embolic phenomenon. He has no history of atrial fibril lation. I will interrogate his pacer which hopefully will yield some information of the presence or absence of that. I think a CT angiogram of his abdomen to rule out vascular disease is important. I have sent a cardiolipin antibody panel which will come back in time. I feel like if he has no signi ficant vascular disease, it may be meaningful to consider this an embolic event and switch him from E liquis back to warfarin. He has taken this in the past without difficulty. 4. Diabetes. His blood sugars were 160s here. He is on metformin as an outpatient. I will check a metabolic panel in the morning. 5. Iodine allergy. The patient has an iodine allergy. He did receive a CT scan. I will premedicat e him with Solu-Medrol and Benadryl for his scan. 6. Prophylaxis. He will now be therapeutically anticoagulated. DISPOSITION: Inpatient. Thank you for this consultation. I will follow with you. /[id number]/MODL
[2017-04-15] MEDS: ENOXAPARIN 120 MG/0.8 ML SYR SC SCH (18:32)
[2017-04-15] MEDS: ATORVASTATIN CALCIUM 10 MG TAB PO SCH (20:29)
[2017-04-15] MEDS: LISINOPRIL 20 MG TAB PO SCH (20:30)
[2017-04-16] MEDS: D5W 1/2 NS W/ 20 KCl/L 1,000 ML IV SCH ×3 (04:36→21:35)
[2017-04-16] MEDS: ENOXAPARIN 120 MG/0.8 ML SYR SC SCH ×2 (04:38→15:52)
[2017-04-16 07:17] LABS: ANION GAP 6 mEq/L (8-16); CALCIUM 8.6 mg/dL (8.5-10.4); CARBON DIOXIDE 26 mEq/l (22-31); CHLORIDE 101 mEq/L (97-110); CREATININE 0.8 mg/dL (0.7-1.3); GLOMERULAR FILTRATION RATE > 60; GLUCOSE 145 mg/dL (70-100); POTASSIUM 4.1 mEq/L (3.5-5.2); SODIUM 133 mEq/L (134-144)
[2017-04-16] MEDS: FAMOTIDINE 20 MG/NACL 50 ML IV SCH (08:47)
--- NOTE | 2017-04-16 09:56 | SOAPPROG ---
SOAP Progress Note Assessment/Plan: Assessment/Plan: - 82yo M s/p ex-lap, washout for necrotic small bowel - VSS, HDS, afebrile - Pain controlled, will start PO when eating - Abdomen is soft, has good bowel sounds and is passing flatus. Will start clears today - Back on full dose LMWH, hypercoag pending. CTA reviewed: no compromise identified. Dr Fish deciding whether or not to restart Eliquis versus warfarin - Path pending - OOBTC, PT/OT - Appreciate IM assistance with management, he is making good progress 04/15/17 10:45 04/16/17 09:54 04/16/17 09:56 Subjective: Doing well, passing flatus Objective: Vital Signs Temp Pulse Resp BP Pulse Ox 36.7 C 75 18 123/69 H 92 04/16/17 04:40 04/16/17 08:00 04/16/17 08:00 04/16/17 08:00 04/16/17 08:00 Microbiology 04/13/17 05:05 Gram Stain - Final Abdomen - Eswab Laboratory Results 04/13/17 05:14 04/16/17 04:45 04/15/17 04/16/17 04/17/17 05:59 05:59 05:59 Intake Total 2625 1805 Output Total 2335 3850 Balance 290 -2045 PT 14.2 SEC (12.0-15.0) 04/13/17 00:40 INR 1.11 (0.83-1.16) 04/13/17 00:40 ICD10 Worksheet Patient Problems: Problems Problem Status Onset Abdominal pain Acute Fever and chills Acute Liver function test abnormality Acute Pulmonary embolism Acute
--- NOTE | 2017-04-16 10:47 | HOSPPROG ---
Hospitalist Progress Note Assessment/Plan: DIAGNOSES: -acute ischemic small bowel status post resection and abdominal washout; doing reasonably well postoperative without complication -postoperative ileus, improving -acute on chronic urinary retention, Ball catheter remains in place for this reason -no current sign of infection or other complication of that -diabetes mellitus, sugars have been good so far though would increase monitoring -anticoagulation for history of DVT and PE, and now arterial Abarca is suspected as well and this would have occurred on Eliquis -currently receiving Lovenox and will plan to begin Coumadin and INR monitoring at this time PLANS: -will begin fingerstick monitoring -daily INR -begin Coumadin and bridge with Lovenox -Ball catheter for now with another voiding trial before discharge -continue ambulation as he has been doing SUBJECTIVE: Feels well overall Mild abdominal discomfort if he coughs No other aches or pains Not very hungry but no nausea or vomiting; some flatus but no stool yet OBJECTIVE Vitals reviewed: Stable without fever 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, 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: Exam: alert oriented skin warm dry color ok resps not labored lungs clear BSs heart regular abd soft nondistended minimally tender, bowel sounds present, wounds look okay tony intact limbs warm, no edema iv site ok Objective: Vital Signs Temp Pulse Resp BP Pulse Ox 36.7 C 75 18 123/69 H 92 04/16/17 04:40 04/16/17 08:00 04/16/17 08:00 04/16/17 08:00 04/16/17 08:00 Microbiology 04/13/17 05:05 Gram Stain - Final Abdomen - Eswab Laboratory Results 04/13/17 05:14 04/16/17 04:45 04/15/17 04/16/17 04/17/17 06:59 06:59 06:59 Intake Total 2625 1805 Output Total 2335 3850 Balance 290 -2045 PT 14.2 SEC (12.0-15.0) 04/13/17 00:40 INR 1.11 (0.83-1.16) 04/13/17 00:40 ICD10 Worksheet Patient Problems: Problems Problem Status Onset Abdominal pain Acute Fever and chills Acute Liver function test abnormality Acute Pulmonary embolism Acute
[2017-04-16] MEDS: ERTAPENEM 1 GM in NS 100 ML IV SCH (11:28)
[2017-04-16] MEDS ORDERED: ALBUTEROL 3 ML DEYVIAL IH PRN (14:33)
[2017-04-16 14:47] LABS: % IMMATURE GRANULYOCYTES 0.4 % (0.0-1.1); ABSOLUTE IMMATURE GRANULOCYTES 0.03 10^3/uL (0.00-0.10); ADD DIFF? NO; ADD MORPH? NO; ADD SCAN? NO; ATYPICAL LYMPHOCYTE FLAG 0 (0-99); FRAGMENT RBC FLAG 0 (0-99); HEMATOCRIT 37.4 % (40.0-51.0); HEMOGLOBIN 13.1 g/dL (13.7-17.5); LEFT SHIFT FLG 0 (0-99); LIPEMIA HEMOLYSIS FLAG 90 (0-99); MEAN CELL HEMOGLOBIN 33.2 pg (27.9-34.1); MEAN CELL VOLUME 94.7 fL (81.5-99.8); MEAN PLATELET VOLUME 10.6 fL (8.7-11.7); PLATELET CLUMPS FLAG 0 (0-99); PLATELET COUNT 163 10^3/uL (150-400); RED BLOOD CELL COUNT 3.95 10^6/uL (4.40-6.38); RED CELL DISTRIBUTION WIDTH 13.2 % (11.5-15.2)
[2017-04-16] MEDS: LISINOPRIL 20 MG TAB PO SCH (21:40)
[2017-04-16] MEDS: ATORVASTATIN CALCIUM 10 MG TAB PO SCH (21:40)
[2017-04-17] MEDS: D5W 1/2 NS W/ 20 KCl/L 1,000 ML IV SCH ×2 (04:54→13:40)
[2017-04-17] MEDS: ENOXAPARIN 120 MG/0.8 ML SYR SC SCH ×2 (04:55→17:44)
[2017-04-17 05:26] LABS: INR 1.14 (0.83-1.16); PROTIME(PATIENT) 14.5 SEC (12.0-15.0)
[2017-04-17] MEDS: ERTAPENEM 1 GM in NS 100 ML IV SCH (08:32)
[2017-04-17] MEDS ORDERED: HYDROCODONE/APAP 5/325 TAB PO PRN (11:54)
--- NOTE | 2017-04-17 11:54 | SOAPPROG ---
SOAP Progress Note Assessment/Plan: Assessment/Plan: 82 Y M c DM, HTN, COPD, ÁLVARO s/p laparotomy, SBR, and washout for peritonitis and necrotic bowel. Pt continues to progress. Advance diet. Transition to PO meds. Urinary retention. Ball had to be replaced--continue for now. Consider removal in am. Appreciate IM input and care. CTA without arterial compromise to intestines to explain surgical findings. Will d/w Dr. Steve. Dr. Santiago to continue to follow in am. S: passing gas. +BM. Pain controlled. Hungry. O: alert, nad mmm, no jaundice ctab anteriorly rrr abd soft, appropriately ttp, inc cdi c tony, no erythema urine light clear yellow 04/17/17 11:52 Objective: Vital Signs Temp Pulse Resp BP Pulse Ox 36.7 C 67 18 129/73 H 93 04/17/17 08:00 04/17/17 08:00 04/17/17 08:00 04/17/17 08:30 04/17/17 08:00 Microbiology 04/13/17 05:05 Gram Stain - Final Abdomen - Eswab Laboratory Results 04/16/17 14:41 04/16/17 04:45 04/16/17 04/17/17 04/18/17 05:59 05:59 05:59 Intake Total 1805 3164 Output Total 3850 3350 1100 Balance -5 -186 -1100 PT 14.5 SEC (12.0-15.0) 04/17/17 04:48 INR 1.14 (0.83-1.16) 04/17/17 04:48 ICD10 Worksheet Patient Problems: Problems Problem Status Onset Abdominal pain Acute Fever and chills Acute Liver function test abnormality Acute Pulmonary embolism Acute
--- NOTE | 2017-04-17 13:35 | ASMTCMCOM ---
CM Note CM Note Notes: Met with pt and at their request to discuss DC plan. Pt will have [facility] RN/PT/OT. Pt does not need [employer]. concerned about stairs in the home and if pt will be able to use them or if she will need to create an alternative sleeping area for pt. understands that PT will assist pt with this. Provided ph # of [facility] and Case Mgmt if needed. C/M will continue to follow. Date Signed: 04/17/2017 01:34 PM Electronically Signed By:Jaclyn Whitehead LCSW
--- NOTE | 2017-04-17 18:01 | HOSPPROG ---
Hospitalist Progress Note Assessment/Plan: DIAGNOSES: -acute ischemic small bowel status post resection and abdominal washout; doing reasonably well postoperative without complication -postoperative ileus, improving -acute on chronic urinary retention, Ball catheter remains in place for this reason -no current sign of infection or other complication of that -diabetes mellitus, sugars have been good so far -anticoagulation for history of DVT and PE, and now arterial Tevin is suspected as well and this would have occurred on Eliquis -currently receiving Lovenox and will plan to begin Coumadin and INR monitoring at this time PLANS: -will begin fingerstick monitoring -daily INR -begin Coumadin and bridge with Lovenox -Ball catheter for now with another voiding trial before discharge -continue ambulation as he has been doing SUBJECTIVE: Feels better overall today Is taking some fluids as well as small amount of solid food, and has had some bowel movements No shortness of breath or fevers OBJECTIVE Vitals reviewed: 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, 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: Exam: alert oriented skin warm dry color ok resps not labored lungs clear BSs heart regular abd soft nondistended minimally tender, bowel sounds present, wounds look okay tony intact limbs warm, no edema iv site ok Objective: Vital Signs Temp Pulse Resp BP Pulse Ox 36.7 C 64 18 138/72 H 91 L 04/17/17 08:00 04/17/17 17:02 04/17/17 17:02 04/17/17 17:02 04/17/17 17:02 Microbiology 04/13/17 05:05 Gram Stain - Final Abdomen - Eswab Laboratory Results 04/16/17 14:41 04/16/17 04:45 04/16/17 04/17/17 04/18/17 06:59 06:59 06:59 Intake Total 1805 3164 Output Total 3850 3350 2600 Balance -2045 -186 -2600 PT 14.5 SEC (12.0-15.0) 04/17/17 04:48 INR 1.14 (0.83-1.16) 04/17/17 04:48 ICD10 Worksheet Patient Problems: Problems Problem Status Onset Abdominal pain Acute Fever and chills Acute Liver function test abnormality Acute Pulmonary embolism Acute
[2017-04-17] MEDS: WARFARIN SODIUM 5 MG TAB PO SCH (18:31)
[2017-04-17] MEDS: LISINOPRIL 20 MG TAB PO SCH (21:18)
[2017-04-17] MEDS: ATORVASTATIN CALCIUM 10 MG TAB PO SCH (21:18)
[2017-04-18] MEDS: D5W 1/2 NS W/ 20 KCl/L 1,000 ML IV SCH ×2 (00:53→09:28)
[2017-04-18] MEDS: ENOXAPARIN 120 MG/0.8 ML SYR SC SCH ×2 (04:58→17:18)
[2017-04-18 05:13] LABS: INR 1.12 (0.83-1.16); PROTIME(PATIENT) 14.3 SEC (12.0-15.0)
--- NOTE | 2017-04-18 08:44 | SOAPPROG ---
SOAP Progress Note Assessment/Plan: Assessment/Plan: - 82yo M s/p ex-lap, washout for necrotic small bowel - VSS, HDS, afebrile - Pain controlled, transition to PO - Tolerating a reg diet with bowel function. Abdomen is soft and aTTP, tony in place - Path: patchy necrosis, ? whether or not related to large fecalith, no other significant findings seen - PT/OT - Has had increased O2 reqs, may need home O2. Will eval today - Full dose LMWH, started coumadin yesterday. INR 1.12 - Dispo: home tomorrow, LMWH bridge, poss Home O2. 04/15/17 10:45 04/16/17 09:54 04/16/17 09:56 04/18/17 08:44 04/18/17 08:45 Subjective: Doing well, pain controlled. Tolerating diet with bowel function Objective: Vital Signs Temp Pulse Resp BP Pulse Ox 36.8 C 70 94 H 133/74 H 18 L 04/18/17 08:00 04/18/17 08:00 04/18/17 08:00 04/18/17 08:00 04/18/17 08:00 Microbiology 04/13/17 05:05 Gram Stain - Final Abdomen - Eswab Laboratory Results 04/16/17 14:41 04/16/17 04:45 04/17/17 04/18/17 04/19/17 05:59 05:59 05:59 Intake Total 316 2288 Output Total 7021 3139 750 Balance -006 -4135 -984 PT 14.3 SEC (12.0-15.0) 04/18/17 04:40 INR 1.12 (0.83-1.16) 04/18/17 04:40 ICD10 Worksheet Patient Problems: Problems Problem Status Onset Abdominal pain Acute Fever and chills Acute Liver function test abnormality Acute Pulmonary embolism Acute
[2017-04-18] MEDS: ERTAPENEM 1 GM in NS 100 ML IV SCH (09:28)
--- NOTE | 2017-04-18 15:46 | HOSPPROG ---
Hospitalist Progress Note Assessment/Plan: DIAGNOSES: -acute ischemic small bowel status post resection and abdominal washout; doing reasonably well postoperative without complication -postoperative ileus, improving -acute on chronic urinary retention, Ball catheter remains in place for this reason -no current sign of infection or other complication of that -diabetes mellitus, sugars have been good so far -anticoagulation for history of DVT and PE, and now arterial Tevin is suspected as well and this would have occurred on Eliquis -currently receiving Lovenox and will plan to begin Coumadin and INR monitoring at this time PLANS: -daily INR -continue Coumadin and bridge with Lovenox -Ball catheter for now with another voiding trial before discharge -continue ambulation as he has been doing SUBJECTIVE: feels good taking in oral food well + stool little pain no fever sxs OBJECTIVE Vitals reviewed: Stable without fever [employer], my review: Exam: alert oriented skin warm dry color ok resps not labored lungs clear BSs heart regular abd soft nondistended minimally tender, bowel sounds present, wounds look okay limbs warm, no edema iv site ok Objective: Vital Signs Temp Pulse Resp BP Pulse Ox 36.6 C 69 16 125/69 H 92 04/18/17 15:37 04/18/17 15:37 04/18/17 15:37 04/18/17 15:37 04/18/17 15:37 Microbiology 04/13/17 05:05 Gram Stain - Final Abdomen - Eswab Laboratory Results 04/16/17 14:41 04/16/17 04:45 04/17/17 04/18/17 04/19/17 06:59 06:59 06:59 Intake Total 3165 4137 Output Total 2241 4039 1910 Balance -186 -8955 -5461 PT 14.3 SEC (12.0-15.0) 04/18/17 04:40 INR 1.12 (0.83-1.16) 04/18/17 04:40 ICD10 Worksheet Patient Problems: Problems Problem Status Onset Abdominal pain Acute Fever and chills Acute Liver function test abnormality Acute Pulmonary embolism Acute
[2017-04-18] MEDS: WARFARIN SODIUM 5 MG TAB PO SCH (17:21)
[2017-04-18] MEDS ORDERED: TAMSULOSIN HCL 0.4 MG CAP PO SCH (18:15)
[2017-04-18] MEDS: metFORMIN HCL 500 MG TAB PO SCH (18:33)
[2017-04-18] MEDS: LISINOPRIL 20 MG TAB PO SCH (21:07)
[2017-04-18] MEDS: TAMSULOSIN HCL 0.4 MG CAP PO SCH (21:07)
[2017-04-18] MEDS: ATORVASTATIN CALCIUM 10 MG TAB PO SCH (21:08)
[2017-04-19 04:59] LABS: INR 1.16 (0.83-1.16); PROTIME(PATIENT) 14.8 SEC (12.0-15.0)
[2017-04-19] MEDS: ENOXAPARIN 120 MG/0.8 ML SYR SC SCH ×2 (05:40→17:11)
[2017-04-19] MEDS: D5W 1/2 NS W/ 20 KCl/L 1,000 ML IV SCH ×2 (07:55→20:24)
[2017-04-19] MEDS: metFORMIN HCL 500 MG TAB PO SCH ×2 (09:35→17:11)
[2017-04-19] MEDS: ERTAPENEM 1 GM in NS 100 ML IV SCH (09:39)
--- NOTE | 2017-04-19 10:56 | SOAPPROG ---
SOAP Progress Note Assessment/Plan: Assessment/Plan: - 82yo M s/p ex-lap, washout for necrotic small bowel - VSS, HDS, afebrile - Pain controlled, transition to PO - Tolerating a reg diet with bowel function. Abdomen is soft and aTTP, tony in place. BM this AM had some dark red blood but has been otherwise normal. - Path: patchy necrosis, ? whether or not related to large fecalith, no other significant findings seen - PT/OT: cleared for home - Has had increased O2 reqs, may need home O2. - Full dose LMWH, started coumadin yesterday. INR subtherapeutic, will dc on LMWH bridge - Dispo: home today, home O2 eval. Not concerned about bloody BM as it was limited and dark. Would be more concerned for persistent BRBPR 04/15/17 10:45 04/16/17 09:54 04/16/17 09:56 04/18/17 08:44 04/18/17 08:45 04/19/17 10:55 Subjective: Doing well, wants to go home Objective: Vital Signs Temp Pulse Resp BP Pulse Ox 37.1 C 70 16 105/56 L 95 04/19/17 08:58 04/19/17 08:58 04/19/17 08:58 04/19/17 09:39 04/19/17 08:58 Microbiology 04/13/17 05:05 Gram Stain - Final Abdomen - Eswab Laboratory Results 04/16/17 14:41 04/16/17 04:45 04/18/17 04/19/17 04/20/17 05:59 05:59 05:59 Intake Total 2288 1500 Output Total 5075 2700 550 Balance -2787 -2700 950 PT 14.8 SEC (12.0-15.0) 04/19/17 04:21 INR 1.16 (0.83-1.16) 04/19/17 04:21 ICD10 Worksheet Patient Problems: Problems Problem Status Onset Abdominal pain Acute Fever and chills Acute Liver function test abnormality Acute Pulmonary embolism Acute
[2017-04-19] MEDS: WARFARIN SODIUM 5 MG TAB PO SCH (17:11)
--- NOTE | 2017-04-19 18:03 | HOSPPROG ---
Hospitalist Progress Note Assessment/Plan: DIAGNOSES: -acute ischemic small bowel status post resection and abdominal washout; doing reasonably well postoperative without complication -postoperative ileus, improving -acute on chronic urinary retention, -Ball catheter has been removed today and we are waiting on a voiding trial -COPD, chronic and stable at this time. He does get some chronic exertional dyspnea that limits his activity somewhat. It sounds like he has probably been prescribed some type of long-acting inhaler that he does not use, and has oxygen available to use with ambulation but has not been using it. He has not been to pulmonary rehabilitation. Dr. 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 Again as above these are really chronic stable symptoms for him. However I do think that he would be well served by visiting pulmonary rehabilitation, and using his long-acting inhaler. I recommended that he have an appointment in the very near future with Dr. Cesra Marquez to review what inhaler he should be using and on what schedule, as well as probably referral to Pulmonary Rehabilitation. I also mentioned that would be good for him to stay very physically active and to use oxygen to help him do that activity with reasonable comfort. He does get an annual flu shot and will continue to do that. At this time he appears stable to discharge to home although were still waiting for him to attempt to void his bladder spontaneously. I did start him on Flomax yesterday. If he is unable to void sufficiently he could potentially go home still today with a Ball catheter in place. I have discussed the patient's case today in detail with Dr. saunders Thal are SUBJECTIVE: feels good taking in oral food well + stool little pain Ambulating better today Some mild dyspnea with exertion which is actually chronic and probably very near his baseline OBJECTIVE Vitals reviewed: Stable without fever Exam: alert oriented skin warm dry color ok resps not labored lungs clear BSs heart regular abd soft nondistended minimally tender, bowel sounds present, wounds look okay limbs warm, no edema iv site ok Objective: Vital Signs Temp Pulse Resp BP Pulse Ox 36.7 C 70 16 105/57 L 96 04/19/17 16:31 04/19/17 16:31 04/19/17 16:31 04/19/17 16:31 04/19/17 16:31 Microbiology 04/13/17 05:05 Gram Stain - Final Abdomen - Eswab Laboratory Results 04/16/17 14:41 04/16/17 04:45 04/18/17 04/19/17 04/20/17 06:59 06:59 06:59 Intake Total 2288 1500 450 Output Total 5075 2700 550 Balance -2787 -1200 -100 PT 14.8 SEC (12.0-15.0) 04/19/17 04:21 INR 1.16 (0.83-1.16) 04/19/17 04:21 - Time Spent With Patient Time Spent with Patient: greater than 35 minutes Time Spent with Patient: Greater than 35 minutes spent on this patients care, greater than 50% of time spent counseling, educating, and coordinating care regarding the above mentioned plan. ICD10 Worksheet Patient Problems: Problems Problem Status Onset Abdominal pain Acute Fever and chills Acute Liver function test abnormality Acute Pulmonary embolism Acute
[2017-04-19] MEDS: ATORVASTATIN CALCIUM 10 MG TAB PO SCH (20:25)
[2017-04-19] MEDS: TAMSULOSIN HCL 0.4 MG CAP PO SCH (20:26)
[2017-04-19] MEDS: LISINOPRIL 20 MG TAB PO SCH (20:42)
[2017-04-19 23:21] VITALS: RESP 16
[2017-04-20 04:46] VITALS: TEMP 98.3
[2017-04-20] MEDS: ENOXAPARIN 120 MG/0.8 ML SYR SC SCH (04:46)
[2017-04-20 05:14] LABS: INR 1.2 (0.83-1.16); PROTIME(PATIENT) 15.2 SEC (12.0-15.0)
[2017-04-20] MEDS: ERTAPENEM 1 GM in NS 100 ML IV SCH (09:23)
[2017-04-20] MEDS: metFORMIN HCL 500 MG TAB PO SCH (09:23)
--- NOTE | 2017-04-20 09:36 | SOAPPROG ---
SOAP Progress Note Assessment/Plan: Assessment: s/p ex lap for necrotic bowel Urinary retention resolved Asked about Coumadin teaching Likely home today Appreciate hospitalists F/U with dr osei in 10 days S: No surgical questions. Plan: 04/20/17 09:35 Objective: Vital Signs Temp Pulse Resp BP Pulse Ox 36.8 C 66 16 94/43 L 94 04/20/17 07:57 04/20/17 07:57 04/20/17 07:57 04/20/17 07:57 04/20/17 07:57 Microbiology 04/13/17 05:05 Gram Stain - Final Abdomen - Eswab Laboratory Results 04/16/17 14:41 04/16/17 04:45 04/19/17 04/20/17 04/21/17 05:59 05:59 05:59 Intake Total 3406 Output Total 2700 1775 450 Balance -2700 1631 -450 PT 15.2 SEC (12.0-15.0) H 04/20/17 04:38 INR 1.20 (0.83-1.16) H 04/20/17 04:38 ICD10 Worksheet Patient Problems: Problems Problem Status Onset Abdominal pain Acute Fever and chills Acute Liver function test abnormality Acute Pulmonary embolism Acute
[2017-04-20 10:43] VITALS: BP 109/58; PULSE 69; O2SAT 91
--- NOTE | 2017-04-20 10:52 | PDDCSUM ---
Discharge Summary Discharge Summary: Date of Admission: April 13, 2017 Date of Discharge: April 20, 2017 Discharge Diagnoses: Small-bowel infarction, status post resection and washout Acute peritonitis, resolved Postoperative ileus, resolved Urinary retention, resolved COPD, not on home oxygen Obstructive sleep apnea, on CPAP at night Diabetes mellitus type 2 History of DVT/PE Admission Diagnoses: Acute abdominal Pain Peritonitis Consultants: General surgery Attending-Dr. Santiago. Internal Medicine - Dr. Richardson. Hospital Course: Hospital course: Patient is an 82-year-old male who presented with an acute abdomen, was found to have a small-bowel infarction, peritonitis. He underwent exploratory lap for daughter with partial small-bowel resection and washout. He was monitored in the ICU following surgery. He required use of BiPAP for obstructive sleep apnea. CT angiogram of the abdomen did not reveal mesenteric ischemia. However, since patient did have small bowel infarction, there was concern of arterial embolus as underlying cause and patient was put back on anticoagulation in the form of Lovenox bridging to warfarin. Over the next week , the patient improved clinically. He had some difficulty with urinary retention as soon as his Ball catheter was removed, but this improved after another day with Flomax. Patient was feeling well when he was discharged. Physical Exam: General: The patient is an elderly male who is alert and in no acute distress. HEENT: normocephalic, extraocular movements intact, conjunctivae clear. Nares and oral mucosa pink and moist. Neck: trachea midline, no visible masses, no external lesions. CV: +S1/S2, RRR, no MRG. Resp: unlabored, CTAB no RRW. Abd: soft and nondistended. Surgical incisions healing, tony in place. +BS. Musculoskeletal: Normal muscle tone and bulk. Ambulatory. Neuro: cranial nerves II XII grossly intact. Psych: appropriate mood/affect. Skin: no pallor. Condition: Stable. Discharged to: Home w/ home healthcare (RN, PT, OT). Pertinent tests/labs/imaging: CTA Abd/pelv: Impression: 1. No arterial compromise to large and small intestine. 2. Amount of air-fluid level in the small bowels is improved compared to April 13. 3. Nonspecific area of fluid collection in the lower pelvis, caught on the last two images. It may be beginning of a bladder that is barely imaged. Pelvic ascites or fluid collection is not excluded, as this scan does include the rest of the pelvis. KUB: Gas-filled, nondistended bowel loops. Chest x-ray: No acute cardiopulmonary abnormality. Pathology results: Trans mural necrosis, acute. Acute neural inflammation and acute peritonitis. 3 cm fecalith. Medications: Please see med rec form. Discontinue Eliquis. Started patient on warfarin with Lovenox bridging. Patient was started on Flomax because he had urinary retention after Ball catheter was removed. Special instructions: Monitor INR twice a week for adjustment in warfarin. Next INR check should be on SaturdayApril 22 or SaturdayApril 23 - please tell your primary care physician about the result for further recommendations on warfarin dosing. Follow up: Follow up with primary care physician Dr. Carcamo within 1 week. Follow up with General Surgeon Dr. Santiago in 10 days. > 30 minutes of total time was spent on counseling and coordination of care for this patient's discharge.
[2017-04-20] MEDS ORDERED: WARFARIN SODIUM 5 MG TAB PO ONE (11:30)
--- NOTE | 2017-04-20 12:22 | ASMTCMCOM ---
CM Note CM Note Notes: Patient discharging home with [facility] RN, PT and OT. [facility] RN notified of discharge. Start of care on Saturday04/21/2017. No additional Case managment needs apparent at this time. Date Signed: 04/20/2017 12:21 PM Electronically Signed By:RADHA Chen
[2017-04-20] MEDS ORDERED: WARFARIN SODIUM 5 MG TAB PO SCH (16:00)
--- NOTE | 2017-04-20 17:18 | PDIAF ---
- Diagnosis Diagnosis: small bowel perforation, s/p partial resection. Code Status: Full Code - Medication Management Discharge Medications: Medications to Continue on Transfer RX: Cyanocobalamin (Vitamin B-12) [Cyanocobalamin Injection] 1,000 mcg IM Q30D 08/16/11 [Last Taken 02/25/16] RX: FLUoxetine [Prozac 20 MG (*)] 20 mg PO DAILY 08/16/11 [Last Taken 03/10/16 08:00] RX: Fluocinonide 0.05% [Lidex 0.05% Cream] 1 dionisio TP DAILY PRN 08/16/11 [Last Taken Unknown] RX: amLODIPine BESYLATE [Norvasc 10 mg (*)] 10 mg PO DAILY 08/16/11 [Last Taken 03/10/16 08:00] RX: Atorvastatin Calcium [Lipitor 10 mg (*)] 10 mg PO HS 09/16/15 [Last Taken ] RX: Fluticasone Nasal [Flonase Nasal Thicket] 1 sprays NASAL HS PRN 09/16/15 [ Last Taken Unknown] RX: Lisinopril [Zestril 20 mg (*)] 20 mg PO HS 09/16/15 [Last Taken 03/09/16] RX: metFORMIN HCL [Metformin HCl ER] 500 mg PO BIDMEAL 09/16/15 [Last Taken 09/20 08:00] RX: Ursodiol [Actigall 300MG (*)] 600 mg PO BID #60 cap 03/13/16 [Last Taken Unknown] RX: Enoxaparin [Lovenox 120 MG (*)] 120 mg SC BID@0500,1700 7 Days #14 syr 04/20 [Last Taken Unknown] RX: Hydrocodone/APAP 5/325 [[place] 5/325 (*)] 1 - 2 tab PO Q4 PRN #30 tab [Last Taken Unknown] RX: Tamsulosin HCl [Flomax 0.4 MG (*)] 0.4 mg PO HS #30 cap 04/20/17 [Last Taken Unknown] RX: Warfarin Sodium [Coumadin 5MG (*)] 5 mg PO DAILY AT 4PM #30 tab 04/20/17 [ Last Taken Unknown] Discharge Medications: Refer to the Discharge Home Medication list for PRN reason. PICC Care - Routine: N/A - Orders Services needed: Home Care, Registered Nurse, Physical Therapy, Occupational Therapy Home Care Face to Face: I certify that this patient was under my care and that I had the required [id number] encounter meeting the encounter requirements on the discharge day. My findings support the fact that the patient is homebound as defined in Home Care Face to Face Continued: CMS Chapter 7 Medicare Benefits Manual 30.1.1 , The condition of the patient is such that there exists a normal inability to leave home and consequently, leaving home would require a considerable and taxing effort. Oxygen: n/a Diet Recommendation: ADA 2000 consistent carb Diet Texture: Regular Texture Diet Wound Care Instructions: Assess wound at each visit for signs of infection. Date to Remove Sutures/[place]: 04/29/17 (Make a FU appt on 04/29/17 w/ Dr. Santaigo Gen Surgeon ) Activity/Weight Bearing Restrictions: as tolerated. Do not lift heavier than 30lbs for at least 2 weeks. - Labs/Radiology PT/INR Date: 04/22/17 (Report result to Dr. Ying.) - Follow Up Care Current Providers and Referrals: Clemente Santiago MD [Medical Doctor] - follow up in 10 days Matthew Ying MD [Primary Care Provider] - 3-5 days
== END 2017-04-20 12:37 | disposition home health service (06) | DRG 329 ==
LOC: EDUNIT# → F2N 05:55 → F1N 04-15 12:26
PROVIDERS: ADMIT Surgery; ATTEND Surgery
PROC: 0WJG4ZZ Inspection of Peritoneal Cavity, Percutaneous Endoscopic Approach (ICD-10-PCS; principal; 2017-04-13 03:15)
PROC: 0D9670Z Drainage of Stomach with Drainage Device, Via Natural or Artificial Opening (ICD-10-PCS; principal; 2017-04-13 03:15)
PROC: 0DB80ZZ Excision of Small Intestine, Open Approach (ICD-10-PCS; principal; 2017-04-13 03:15)
DX: K55.021 Focal (segmental) acute infarction of small intestine (principal); K65.0 Generalized (acute) peritonitis; K91.89 Other postprocedural complications and disorders of digestive system; J44.9 Chronic obstructive pulmonary disease, unspecified; G47.33 Obstructive sleep apnea (adult) (pediatric); I10 Essential (primary) hypertension; E11.9 Type 2 diabetes mellitus without complications; E78.00 Pure hypercholesterolemia, unspecified; D64.9 Anemia, unspecified; R33.9 Retention of urine, unspecified; Z86.711 Personal history of pulmonary embolism; Z95.0 Presence of cardiac pacemaker; Z79.01 Long term (current) use of anticoagulants; Z88.3 Allergy status to other anti-infective agents
CPT/HCPCS: 82947-QW; 86147-90; 96365; 97116-GP; 97161-GP; 97165-GO; 97530-GO; 97530-GP; 97535-GO; G8978-GP-CI; G8979-GP-CH; G8979-GP-CI; G8980-GP-CI; G8987-GO-CJ; G8988-GO-CI; G8989-GO-CI; J0330; J1100; J1170; J1335; J1650; J2370; J2405; J2704; J3010; Q9967

== ENCOUNTER 2017-04-24 18:01 | Inpatient (IN) | payer OTHER ==
[2017-04-24] MEDS ORDERED: NS 1,000 ML IV ONE (19:01)
[2017-04-24 19:04] LABS: % IMMATURE GRANULYOCYTES 0.8 % (0.0-1.1); ABSOLUTE IMMATURE GRANULOCYTES 0.07 10^3/uL (0.00-0.10); ADD DIFF? NO; ADD MORPH? NO; ADD SCAN? NO; ATYPICAL LYMPHOCYTE FLAG 0 (0-99); FRAGMENT RBC FLAG 0 (0-99); HEMATOCRIT 26.9 % (40.0-51.0); HEMOGLOBIN 9.1 g/dL (13.7-17.5); LEFT SHIFT FLG 0 (0-99); LIPEMIA HEMOLYSIS FLAG 90 (0-99); MEAN CELL HEMOGLOBIN 32.2 pg (27.9-34.1); MEAN CELL HEMOGLOBIN CONCENTR. 33.8 g/dL (32.4-36.7); MEAN CELL VOLUME 95.1 fL (81.5-99.8); MEAN PLATELET VOLUME 10.2 fL (8.7-11.7); PLATELET CLUMPS FLAG 0 (0-99); PLATELET COUNT 337 10^3/uL (150-400); RED BLOOD CELL COUNT 2.83 10^6/uL (4.40-6.38); RED CELL DISTRIBUTION WIDTH 13.6 % (11.5-15.2)
--- NOTE | 2017-04-24 19:04 | EDPHY ---
HPI/HX/ROS/PE/MDM Narrative: CHIEF COMPLAINT: Lightheadedness and hypotension HISTORY OF PRESENT ILLNESS: The patient is an 82 y/o male arriving with family complaining of lightheadedness, low blood pressure, and downward trending hemoglobin hematocrit He had a bowel resection 04/16/17 for ischemic bowel proximal to the jejunum. He was discharged Saturday, 5 days ago and was doing well. Saturday he began feeling lightheaded and became dizzy with low blood pressure especially when up and about. Saturday, he had basic labs drawn and his results were low across the board. Saturday, the labs were repeated and results were even lower. He reports that his stools have been dark, almost black, but getting or nurse manager. He was referred to the emergency department by Dr. Gus Ying. Patient denies any abdominal pain. He reports no nausea or vomiting. He reports no chest pain. He denies fainting, chest pain, shortness of breath, headache, or bloody stools. No fever, chills, chest pain, shortness of breath, palpitations, vomiting, diarrhea, urinary complaints, headache, lightheadedness. REVIEW OF SYSTEMS: Aside from elements discussed in the HPI, a comprehensive 10-point review of systems was reviewed and is negative. PAST MEDICAL HISTORY: Pacemaker for bradycardia, bowel resection 04/16/17. SOCIAL HISTORY: Family at bedside, lives in [place], . VITAL SIGNS: Reviewed by me GENERAL: Well-developed, well-nourished, resting comfortably in no respiratory distress. Lightheaded upon sitting up. HEENT: Atraumatic. Eyes: No icterus, no injection. Mouth: moist mucous membranes. No erythema or lesions. Neck: supple with no adenopathy. LUNGS: Clear to auscultation bilaterally, no wheezes, rhonchi or rales. CARDIAC: Regular rate and rhythm, no rubs, murmurs or gallops. Heart sounds distant. ABDOMEN: Very mild, diffuse abdominal tenderness, worse in the lower abdomen. Soft, nondistended, bowel sounds normal. BACK: No CVA tenderness. EXTREMITIES: No trauma. No edema. Range of motion is normal throughout. NEURO: Alert and oriented, grossly nonfocal. SKIN: Warm and dry, no rash. Incision healing well. PSYCHIATRIC: Normal mentation, no agitation. Portions of this note were transcribed by a medical information specialist. I personally performed a history, physical exam, medical decision making, and confirmed accuracy of information the transcribed note. ED Course: Procedure: Focused abdominal ultrasound for concerns of intra-abdominal hemorrhage Limited abdominal ultrasound for hypotension and anemia post surgery 1) The right upper quadrant was visualized and was found to be negative for intraperitoneal fluid. 2) The left upper quadrant was visualized and found to be negative for intraperitoneal fluid. 3) The bladder was visualized and did not reveal an anechoic area outside of the adjacent urinary bladder. The study was felt to be negative for free intraperitoneal fluid. Procedure performed by myself. 12-LEAD EKG: Please see the full report in [facility]. My interpretation: Not abnormal for patient The patient is an 82 y/o male complaining of lightheadedness, hypotension, and downward trending labs arriving after instruction from his doctor to do so. He had a bowel resection 04/16/17 and was discharged Saturday. Saturday, he became lightheaded and has been experiencing hypotension that is worse with movement. His labs have also been low and trending downward. He denies chest pain, headache, or other associated symptoms. Rectal exam normal. Physical exam shows diffuse abdominal tenderness that is worse in the lower abdomen. 1914: Serum occult positive. Patient will be admitted. 1941: I spoke with Dr. Alcantar regarding admission for this patient. 2009: I spoke with Dr. Steve electron beam welder for Dr. Santiago regarding this patient. Patient to be admitted to the surgical service with hospitalist following. The patient was typed and crossed for blood. MDM: Differential diagnoses for the patient's symptom complex was considered including but not limited to upper GI hemorrhage, stress ulcer, bleeding from the anastomosis site, intra-abdominal bleeding, bowel perforation. - Data Points Laboratory Results: Laboratory Results 04/24/17 18:44 04/24/17 18:44 04/24/17 04/24/17 04/24/17 19:02 18:44 18:44 WBC RBC Hgb Hct MCV MCH MCHC RDW Plt Count MPV Neut % (Auto) Lymph % (Auto) [place] % (Auto) Eos % (Auto) Baso % (Auto) Nucleat RBC Rel Count Absolute Neuts (auto) Absolute Lymphs (auto) Absolute Monos (auto) Absolute Eos (auto) Absolute Basos (auto) Absolute Nucleated RBC Immature Gran % Immature Gran # PT 16.4 SEC H SEC (12.0-15.0) INR 1.32 H (0.83-1.16) Sodium 133 mEq/L L mEq/L (134-144) Potassium 4.0 mEq/L mEq/L (3.5-5.2) Chloride 102 mEq/L mEq/L (97-110) Carbon Dioxide 22 mEq/l mEq/l (22-31) Anion Gap 9 mEq/L mEq/L (8-16) BUN 18 mg/dL mg/dL (7-23) Creatinine 1.0 mg/dL mg/dL (0.7-1.3) Estimated GFR > 60 Glucose 113 mg/dL H mg/dL (70-100) Calcium 8.6 mg/dL mg/dL (8.5-10.4) Total Bilirubin 0.4 mg/dL mg/dL (0.1-1.4) Conjugated Bilirubin 0.4 mg/dL mg/dL (0.0-0.5) Unconjugated Bilirubin 0.0 mg/dL mg/dL (0.0-1.1) AST 28 IU/L IU/L (17-59) ALT 42 IU/L IU/L (21-72) Alkaline Phosphatase 62 IU/L IU/L (38-126) Troponin I < 0.012 ng/mL ng/mL (0.000-0.034) Total Protein 5.7 g/dL L g/dL (6.3-8.2) Albumin 3.2 g/dL L g/dL (3.5-5.0) Lipase 172 IU/L IU/L (23-300) Stool Occult Bld Scrn POSITIVE H (NEGATIVE) 04/24/17 18:44 WBC 9.25 10^3/uL 10^3/uL (3.80-9.50) RBC 2.83 10^6/uL L 10^6/uL (4.40-6.38) Hgb 9.1 g/dL L g/dL (13.7-17.5) Hct 26.9 % L % (40.0-51.0) MCV 95.1 fL fL (81.5-99.8) MCH 32.2 pg pg (27.9-34.1) MCHC 33.8 g/dL g/dL (32.4-36.7) RDW 13.6 % % (11.5-15.2) Plt Count 337 10^3/uL 10^3/uL (150-400) MPV 10.2 fL fL (8.7-11.7) Neut % (Auto) 63.9 % % (39.3-74.2) Lymph % (Auto) 24.6 % % (15.0-45.0) [place] % (Auto) 7.1 % % (4.5-13.0) Eos % (Auto) 3.1 % % (0.6-7.6) Baso % (Auto) 0.5 % % (0.3-1.7) Nucleat RBC Rel Count 0.0 % % (0.0-0.2) Absolute Neuts (auto) 5.90 10^3/uL 10^3/uL (1.70-6.50) Absolute Lymphs (auto) 2.28 10^3/uL 10^3/uL (1.00-3.00) Absolute Monos (auto) 0.66 10^3/uL 10^3/uL (0.30-0.80) Absolute Eos (auto) 0.29 10^3/uL 10^3/uL (0.03-0.40) Absolute Basos (auto) 0.05 10^3/uL 10^3/uL (0.02-0.10) Absolute Nucleated RBC 0.00 10^3/uL 10^3/uL (0-0.01) Immature Gran % 0.8 % % (0.0-1.1) Immature Gran # 0.07 10^3/uL 10^3/uL (0.00-0.10) PT INR Sodium Potassium Chloride Carbon Dioxide Anion Gap BUN Creatinine Estimated GFR Glucose Calcium Total Bilirubin Conjugated Bilirubin Unconjugated Bilirubin AST ALT Alkaline Phosphatase Troponin I Total Protein Albumin Lipase Stool Occult Bld Scrn Medications Given: Potassium Chloride/Dextrose/Sod Cl (D5w 1/2 Ns W/ 20 Kcl/L) 1,000 mls @ 100 mls /hr IV CONT MARISELA Stop: 10/21/17 21:29 Last Admin: 04/24/17 22:40 Dose: 1,000 mls Discontinued Medications Sodium Chloride (Ns) 1,000 mls @ 0 mls/hr IV ONCE ONE; Wide Open PRN Reason: Protocol Stop: 04/24/17 19:02 Last Admin: 04/24/17 19:14 Dose: 1,000 mls Pantoprazole Sodium (Protonix) 40 mg IVP EDNOW ONE Stop: 04/24/17 20:11 Last Admin: 04/24/17 21:53 Dose: 40 mg General Time Seen by Provider: 04/24/17 18:41 Initial Vital Signs: Initial Vital Signs Temperature (C) 36.7 C 04/24/17 18:31 Heart Rate 71 04/24/17 18:31 Respiratory Rate 18 04/24/17 18:31 Blood Pressure 112/55 L 04/24/17 18:31 O2 Sat (%) 92 04/24/17 18:31 O2 Delivery Mode Room Air Allergies/Adverse Reactions: bacitracin zinc [From Neosporin] Allergy (Severe, Verified 04/24/17 18:33) INFECTION iodine [Iodine] Allergy (Severe, Verified 04/24/17 18:33) FELT VERY HOT neomycin sulfate [From Neosporin] Allergy (Severe, Verified 04/24/17 18:33) INFECTION polymyxin B sulfate [From Neosporin] Allergy (Severe, Verified 04/24/17 18:33) INFECTION balsam curtis Allergy (Intermediate, Verified 04/24/17 18:33) PIMPLES ON LEGS bacitracin Allergy (Unknown, Verified 04/24/17 18:33) INFECTION gramicidin D Allergy (Unknown, Verified 04/24/17 18:33) INFECTION polymyxin B Allergy (Unknown, Verified 04/24/17 18:33) INFECTION bacitracin zinc Allergy (Unknown, Uncoded 04/19/17 14:35) INFECTION neomycin sulfate Allergy (Unknown, Uncoded 04/19/17 14:35) INFECTION polymyxin B sulfate Allergy (Unknown, Uncoded 04/19/17 14:35) INFECTION Home Medications: Medication Instructions Recorded Cyanocobalamin (Vitamin B-12) 1,000 mcg IM Q30D 08/16/11 [Cyanocobalamin Injection] FLUoxetine [Prozac 20 MG (*)] 20 mg PO DAILY 08/16/11 Fluocinonide 0.05% [Lidex 0.05% 1 dionisio TP DAILY PRN 08/16/11 Cream] Atorvastatin Calcium [Lipitor 10 10 mg PO HS 09/16/15 mg (*)] Lisinopril [Zestril 20 mg (*)] 20 mg PO HS 09/16/15 metFORMIN HCL [Metformin HCl ER] 500 mg PO BIDMEAL 09/16/15 Tamsulosin HCl [Flomax 0.4 MG (*)] 0.4 mg PO HS #30 cap 04/20/17 Cholecalciferol Vit D3 [Vitamin D3 1,000 units PO BID 04/24/17 (*)] Ursodiol 1,000 mg PO BID 04/24/17 amLODIPine BESYLATE [Norvasc 5 mg 5 mg PO DAILY 04/24/17 (*)] Departure - Departure Disposition: [facility] Inpatient Acute Clinical Impression: Lightheaded Hypotension Qualifiers: Hypotension type: orthostatic hypotension Qualified Code(s): I95.1 - Orthostatic hypotension GIB (gastrointestinal bleeding) Qualifiers: GI bleed type/associated pathology: unspecified gastrointestinal hemorrhage type Qualified Code(s): K92.2 - Gastrointestinal hemorrhage, unspecified Condition: Serious Report Scribed for: Dee Jacobo Report Scribed by: Rosibel Galicia Date of Report: 04/24/17 Time of Report: 19:23
[2017-04-24 19:12] LABS: INR 1.32 (0.83-1.16); PROTIME(PATIENT) 16.4 SEC (12.0-15.0)
[2017-04-24 19:24] LABS: ALANINE AMINOTRANSFERASE 42 IU/L (21-72); ALBUMIN 3.2 g/dL (3.5-5.0); ALKALINE PHOSPHATASE 62 IU/L (38-126); ANION GAP 9 mEq/L (8-16); ASPARTATE AMINOTRANSFERASE 28 IU/L (17-59); BILIRUBIN,TOTAL 0.4 mg/dL (0.1-1.4); BILIRUBIN-CONJUGATED 0.4 mg/dL (0.0-0.5); CALCIUM 8.6 mg/dL (8.5-10.4); CARBON DIOXIDE 22 mEq/l (22-31); CHLORIDE 102 mEq/L (97-110); GLOMERULAR FILTRATION RATE > 60; GLUCOSE 113 mg/dL (70-100); SODIUM 133 mEq/L (134-144); TOTAL PROTEIN 5.7 g/dL (6.3-8.2)
--- NOTE | 2017-04-24 19:33 | CPEKG ---
Heart Rate: 69 RR Interval: 870 P-R Interval: 212 QRSD Interval: 94 QT Interval: 436 QTC Interval: 467 P [place]: 0 QRS [place]: 58 T Wave [place]: 78 EKG Severity - ABNORMAL ECG - EKG Impression: ATRIAL-PACED COMPLEXES Electronically Signed By: Dee Jacobo 24-Apr-2017 23:53:19
[2017-04-24 19:34] LABS: TROPONIN I < 0.012 ng/mL (0.000-0.034)
[2017-04-24] MEDS ORDERED: PANTOPRAZOLE SODIUM 40 MG VIAL IVP ONE (20:10)
[2017-04-24] MEDS ORDERED: FLUOCINONIDE 0.05% 15 GM CREAM TP PRN (21:02)
--- NOTE | 2017-04-24 21:21 | SOAPPROG ---
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
[2017-04-24] MEDS ORDERED: ONDANSETRON 4 MG/2 ML VIAL IVP PRN (21:22)
[2017-04-24] MEDS ORDERED: HYDROCODONE/APAP 5/325 TAB PO PRN (21:22)
[2017-04-24] MEDS ORDERED: HYDROmorphONE/DILAUDID 1 MG/ML INJ IVP PRN (21:22)
[2017-04-24] MEDS ORDERED: D50W 25 GM/50 ML SYR IVP PRN (21:42)
--- NOTE | 2017-04-24 21:53 | PDHOSCONS ---
Hospitalist Consult Hospitalist Consult: This is a 82 yo male with recent bowel resection on 04/16/17 who was admitted by the surgical service [facility] for likely GI bleed. He has MMP problems and we are asked to consult regarding these. 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 He was recently on Lovenox and Coumadin and this was discontinued 2 days ago due to likely bleeding. He has been experiencing dizziness and weakness as well as orthostatic hypotension. In the E.D. he was given IVF and BP has increased. One unit PRBC is pending. He denies CP or SOB. He denies Leg edema. He reports that his DMII is well controlled. 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 No hx of CHF. Denies CAD. 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, Eliquis failure Soc Hx:: , social ETOH, originally from [place] FmHx: non Labs/studies: Hgb 9.6 Exam: VSS, BP 107/59, HR 76, on RA GEN: NAD HEENT: PERRLA, EOMI, MMM NECK: NO JVD, SUPPLE CV: RRR, NO LE EDEMA LUNG: CTA B ABD: S/NT/ND SKIN: WARM NEURO: AAOX3, NO FOCAL WEAKNESS PSYCH: MOOD APPROPRIATE I/P #GI bleed, Melena #Recent small bowel resection #chronic AC, currently on hold #Anemia due to blood loss #orthostatic hypotension #Hx of HTN #DMII #ÁLVARO, on CPAP HS Plan: -Cont with Protonix, will change to BID -PRBC transfusion, one unit pending -hold BP meds -hold metformin, start ISS -I have completed the med rec -CPAP -SCDs -Hold AC -Full code thank you for this consult. We will follow along.
[2017-04-24] MEDS ORDERED: D10W 250 ML PRN HYPOGLYCEMIA IV (22:30)
[2017-04-24] MEDS: D5W 1/2 NS W/ 20 KCl/L 1,000 ML IV SCH (22:40)
[2017-04-25 06:20] LABS: % IMMATURE GRANULYOCYTES 0.9 % (0.0-1.1); ABSOLUTE IMMATURE GRANULOCYTES 0.07 10^3/uL (0.00-0.10); ADD DIFF? NO; ADD MORPH? NO; ADD SCAN? NO; ATYPICAL LYMPHOCYTE FLAG 0 (0-99); FRAGMENT RBC FLAG 0 (0-99); HEMATOCRIT 24.8 % (40.0-51.0); HEMOGLOBIN 8.4 g/dL (13.7-17.5); LEFT SHIFT FLG 0 (0-99); LIPEMIA HEMOLYSIS FLAG 90 (0-99); MEAN CELL HEMOGLOBIN 31.6 pg (27.9-34.1); MEAN CELL HEMOGLOBIN CONCENTR. 33.9 g/dL (32.4-36.7); MEAN CELL VOLUME 93.2 fL (81.5-99.8); MEAN PLATELET VOLUME 10.2 fL (8.7-11.7); PLATELET CLUMPS FLAG 0 (0-99); PLATELET COUNT 332 10^3/uL (150-400); RED BLOOD CELL COUNT 2.66 10^6/uL (4.40-6.38); RED CELL DISTRIBUTION WIDTH 14.6 % (11.5-15.2)
[2017-04-25 06:29] LABS: APTT 32.4 SEC (23.0-38.0); INR 1.37 (0.83-1.16); PROTIME(PATIENT) 16.9 SEC (12.0-15.0)
[2017-04-25 06:32] LABS: ALANINE AMINOTRANSFERASE 41 IU/L (21-72); ALBUMIN 2.3 g/dL (3.5-5.0); ALKALINE PHOSPHATASE 53 IU/L (38-126); ANION GAP 7 mEq/L (8-16); ASPARTATE AMINOTRANSFERASE 22 IU/L (17-59); BILIRUBIN,TOTAL 1.2 mg/dL (0.1-1.4); BILIRUBIN-CONJUGATED 0.2 mg/dL (0.0-0.5); CALCIUM 8.1 mg/dL (8.5-10.4); CARBON DIOXIDE 23 mEq/l (22-31); CHLORIDE 107 mEq/L (97-110); GLOMERULAR FILTRATION RATE > 60; GLUCOSE 114 mg/dL (70-100); POTASSIUM 4.1 mEq/L (3.5-5.2); SODIUM 137 mEq/L (134-144); TOTAL PROTEIN 4.5 g/dL (6.3-8.2)
[2017-04-25] MEDS ORDERED: metFORMIN SR 500 MG TAB PO SCH (08:00)
--- NOTE | 2017-04-25 08:45 | GHP ---
[f rep st] PREOP HISTORY AND PHYSICAL Amended report HISTORY OF PRESENT ILLNESS: An 82-year-old male,who was admitted from the ER last evening because of dizziness, weakness, and some anemia. He has had no visible blood in his stools, but his stool is heme-positive. He has been on blood thinners up until 2 days ago. He has a longstanding history of pulmonary emboli and DVT. Main issue is orthostatic hypotension. He is admitted at this time for transfusion and evaluation. Has a hematocrit of 27. PAST HISTORY: Includes diabetes. He has had a recent surgery for bowel resection, for bowel perforation of unclear etiology. He does have a pacemaker in place. REVIEW OF SYSTEMS: Reveals diabetes, hypertension, depression, BPH, some COPD, history of DVT and multiple PEs, and sleep apnea. Denies any history of coronary disease or congestive heart failure, and he does not smoke. PHYSICAL EXAM: GENERAL: Reveals alert, cooperative 82-year-old male in no acute distress. VITAL SIGNS: Blood pressure at the time is 105, heart rate of 76. HEAD AND NECK: Reveals no icterus or adenopathy. Conjunctivae were pale. He is PERRLA. No thyromegaly. No oral lesions. CHEST: Clear and symmetric. CARDIAC: Regular rhythm. He does have a pacemaker in place. ABDOMEN: Soft and nontender without masses, organomegaly. He has a recent abdominal scar, which is healing well. There are no hernias. EXTREMITIES: Benign, full pulses. IMPRESSION: Anemia and orthostatic hypotension. PLAN: Admit for evaluation in medical consultation. It should be noted he has had no true melena or hematemesis. He may have anemia secondary to surgery and anticoagulation. /[id number]/MODL Add acc#, 04/25/17, brennon RICHARDSON
--- NOTE | 2017-04-25 08:46 | HOSPPROG ---
Hospitalist Progress Note Assessment/Plan: #Melena -small bowel resection 04/13 for ischemia thought to be due to arterial thrombus ? Coumadin/Lovenox bridge held by PCP 3 days ago -maybe due to anastomosis site? H/H stable after 1 unit RBC -PPI gtt, serial H/H. Surg ordered virtual colonoscopy. GI evaluated, no endoscopy at this time #DM: hold Metformin. SSI while here #HTN: hold antihypertensives with GIB and soft BPs #h/o thrombosis: PE x 3, DVTs and possilbe suspected recent arterial thrombus. High-risk, may be need IVC filter if have to cont to hold AC #ÁLVARO: on CPAP #Diet: clears #Disp: warrants inpt admission with GIB. Requires serial labs, PPI. Subjective: no dizziness, CP, or melena today Objective: Vital Signs Temp Pulse Resp BP Pulse Ox 36.4 C 70 10 L 111/57 L 96 04/25/17 07:34 04/25/17 07:34 04/25/17 07:34 04/25/17 07:34 04/25/17 07:34 Laboratory Results 04/25/17 05:50 04/25/17 05:50 04/24/17 04/25/17 04/26/17 05:59 05:59 05:59 Intake Total 2126 Output Total 1350 Balance 776 PT 16.9 SEC (12.0-15.0) H 04/25/17 05:50 INR 1.37 (0.83-1.16) H 04/25/17 05:50 - Physical Exam Constitutional: no apparent distress, other Eyes: pale conjunctiva Ears, Nose, Mouth, Throat: moist mucous membranes, hearing normal Cardiovascular: regular rate and rhythym, no murmur, rub, or gallop Respiratory: no respiratory distress, no rales or rhonchi Gastrointestinal: soft, non-tender abdomen, no palpable masses, tenderness, other (laproscopic incisions healing well) Genitourinary: no bladder fullness Skin: warm Musculoskeletal: full muscle strength Neurologic: AAOx3, CN II-XII Intact Psychiatric: interacting appropriately ICD10 Worksheet Patient Problems: Problems Problem Status Onset GIB (gastrointestinal bleeding) Acute Hypotension Acute Lightheaded Acute Abdominal pain Acute Fever and chills Acute Liver function test abnormality Acute Pulmonary embolism Acute
[2017-04-25] MEDS ORDERED: URSODIOL PO SCH ×2 (09:00→21:00)
[2017-04-25] MEDS ORDERED: amLODIPine BESYLATE 5 MG TAB PO SCH (09:00)
--- NOTE | 2017-04-25 09:05 | SOAPPROG ---
SOAP Progress Note Assessment/Plan: Assessment: HE FOR YEAR OLD MALE ADMITTED BECAUSE OF ORTHOSTATIC HYPERTENSION AND ANEMIA/HE HAS NO GROSS MELENA BUT AT HEME-POSITIVE STOOL/HE IS 11 DAYS POSTOP AND HAS BEEN ON ANTICOAGULATION UNTIL 2 DAYS AGO ABDOMEN IS SOFT NONTENDER AND HIS WOUNDS ARE HEALING WELL Plan: ADMIT FOR EVAL/TRANSFUSION/RISKS AND OPTIONS FULLY DISCUSSED WITH THE FAMILY 04/24/17 21:19 04/25/17 09:03 VS STABLE/ UO OK/ NO PAIN OR MELENA/ HCT DOWN TO24/ INR 1.35 PLAN GI CONSULT, VIRTUAL COLONOSCOPY/ FOLLOW HCT Objective: Vital Signs Temp Pulse Resp BP Pulse Ox 36.4 C 70 10 L 111/57 L 96 04/25/17 07:34 04/25/17 07:34 04/25/17 07:34 04/25/17 07:34 04/25/17 07:34 Laboratory Results 04/25/17 05:50 04/25/17 05:50 04/24/17 04/25/17 04/26/17 05:59 05:59 05:59 Intake Total 2126 Output Total 1350 Balance 776 PT 16.9 SEC (12.0-15.0) H 04/25/17 05:50 INR 1.37 (0.83-1.16) H 04/25/17 05:50 ICD10 Worksheet Patient Problems: Problems Problem Status Onset GIB (gastrointestinal bleeding) Acute Hypotension Acute Lightheaded Acute Abdominal pain Acute Fever and chills Acute Liver function test abnormality Acute Pulmonary embolism Acute
[2017-04-25] MEDS: INSULIN LISPRO 100 UNIT/ML SC SCH ×3 (09:09→17:37)
[2017-04-25] MEDS ORDERED: PHYTONADIONE 2.5 MG/2.5 ML ORAL UDL PO ONE (09:24)
[2017-04-25] MEDS: PANTOPRAZOLE SODIUM 40 MG in NS 100 ML IV SCH ×2 (09:25→21:00)
[2017-04-25] MEDS: FLUoxetine 20 MG CAP PO SCH (09:25)
[2017-04-25] MEDS: CHOLECALCIFEROL VIT D3 1,000 UNITS TAB PO SCH ×2 (09:25→21:00)
[2017-04-25] MEDS: D5W 1/2 NS W/ 20 KCl/L 1,000 ML IV SCH (10:17)
[2017-04-25 10:58] LABS: HEMATOCRIT 23.8 % (40.0-51.0); HEMOGLOBIN 8.4 g/dL (13.7-17.5)
[2017-04-25] MEDS ORDERED: PEG 3350/NA SULF,BICARB,CL/KCL (GAVILYTE-G) 4000 ML BTL PO ONE (11:02)
--- NOTE | 2017-04-25 12:01 | GCON ---
[f rep st] CONSULTATION REQUESTING PROVIDER: Mark Steve MD. REASON FOR CONSULTATION: Anemia and bloody stool. HISTORY OF PRESENT ILLNESS: Briefly, the patient is a pleasant 82-year-old male with a history of DVT and pulmonary embolism, who had been on chronic anticoagulation. He presented to the hospital approximately 2 weeks ago with acute abdominal pain. At that time, his exam and imaging were consistent with bowel ischemia, and he underwent exploratory laparotomy with partial small bowel resection and reanastomosis. His hospital course at that time, apparently , was uncomplicated. He was ultimately discharged home. Of note, he went 2 or 3 days postoperatively without a bowel movement. His 1st bowel movements postoperatively were bloody in nature. They described some maroon stool as well as melena. His bowel movements gradually improved over time and were becoming more brown and formed. During this same period of time, he developed some orthostatics symptoms. He presented to his physician's for evaluation and was noted to have anemia. His blood counts were followed over a period of several days and continued to decline. In the setting of orthostatic symptoms, bloody stool, and a dropping hematocrit, he was referred to the hospital for evaluation. He reports no abdominal pain. He has had no nausea or emesis. He had resumed p.o. intake without difficulty. He reports no shortness of breath or chest pain. His most recent bowel movements have been becoming gradually more normal. According to the nursing staff, he had a bowel movement in the hospital that was brown in character. PAST MEDICAL HISTORY: Includes DVT and PE (for which he has been on chronic anticoagulation), diabetes, hypertension, and bradycardia (for which he has a pacemaker). He denies heart disease or heart failure. SOCIAL HISTORY: He is . Drinks alcohol rarely. Originally from the [place]. FAMILY HISTORY: Negative for colon cancer to his knowledge. REVIEW OF SYSTEMS: A complete 10-point review was undertaken with the patient and is negative except for those details described in the history of present illness. CURRENT MEDICATIONS: Include Rake, Lipitor, vitamin D, Prozac, Dilaudid, insulin, Zofran, Protonix, Flomax, Actigall, and vitamin B12. ALLERGIES: Multiple and include bacitracin, iodine, neomycin, polymyxin, and gramicidin. HOME MEDICATIONS: Included metformin, amlodipine, Ursodiol, tamsulosin, lisinopril, Lidex, Prozac, vitamin B12, atorvastatin, and vitamin D. he had also recently been on Lovenox and Coumadin. PHYSICAL EXAMINATION: GENERAL: A well-developed elderly male in no apparent distress. HEENT: Pupils are equal, round, AND reactive to light and accommodation. Sclerae nonicteric. Oropharynx clear. NECK: Supple without lymphadenopathy. HEART: Regular without murmur. LUNG: Sounds are clear bilaterally. ABDOMEN: Soft with minimal tenderness in the area of his previous scars. There are no peritoneal signs. EXTREMITIES: Free of cyanosis , clubbing, and edema. NEURO: Grossly nonfocal. SKIN: Warm and dry. He has no bruising. His joints show no arthritis. PSYCH: Normal mood and affect. LABORATORY TESTING: Hematocrit of 23.8 and hemoglobin of 8.4. Prior baseline hematocrits have been in the high 30s and low 40s. Postoperatively, his hematocrit was 37.4. On the , hematocrit was 26.3. INR on the was 1.37. Sodium of 137, potassium of 4.1, chloride of 107, bicarb of 23, BUN of 13 , creatinine of 1. IMPRESSION AND RECOMMENDATIONS: Mr. Rogers is involved in anemia. This has been in the setting of recent bloody stools. He recently underwent partial small-bowel resection and has been on anticoagulants until 2 or 3 days ago. Overall, I am suspicious for operative site bleeding. Luckily, his bowel habits have become more normal. I am hopeful that he has had a resolved surgical anastomosis bleed. Alternative diagnoses might include other intraabdominal bleeding related to his recent surgery. It is possible, although feels unlikely, that he could have an alternate coincident reason for bleeding, such as colonic arteriovenous malformation, diverticula, malignancy, or perhaps peptic ulcer, etc. I will defer to surgery in order to evaluate for intraabdominal bleeding complications related to his recent surgery. At this time, I recommend he discontinue his anticoagulants and we follow his blood counts and stools. Should his bowel habits resolve and his blood count stabilize, we could consider reinstitution of anticoagulant therapy under the assumption that he has finally had healing at his anastomotic site and that subsequent bleeding risks should be low. However, if he has recurring bleeding and continuously falling hematocrits, despite withholding his anticoagulant therapies, additional workup could be warranted vs surgical exploration and revision of anastamosis. Overall, I am hopeful for acute self-limited bleeding related to his intraoperative operative incision. CT scan to rule out extra-luminal bleeding in the abdominal cavity could be considered, although patient has not peritoneal signs that shoudl accompany such a bleeding event. At this time, I will sign off the patient care, please call with any additional questions. /[id number]/MODL MTDD
--- NOTE | 2017-04-25 13:08 | ASMTCMCOM ---
CM Note CM Note Notes: Chart reviewed. Met with pt and to discuss dc poc. Pt is current with [facility]. He is admitted with GI bleed. and dizzyness, To have virtual coloscopy at some point. Will call [facility] to update, CM to follow. Date Signed: 04/25/2017 01:07 PM Electronically Signed By:Desirae Barragan RN
--- NOTE | 2017-04-25 13:52 | SOAPPROG ---
SOAP Progress Note Assessment/Plan: Assessment/Plan: - 82yo M s/p SBR for ischemic SB performed 04/13, now returns with hematochezia and drifting Hct - Today, Rich feels well. He had a BM this AM and per the charge master analyst it was not bloody nor did it appear dark. He was started back on Eliquis last week per his PCP after him and I decided it was safe to proceed. Since then, has been symptomatic and his H&H has drifted. He did receive a unit of packed cells last evening and since his Hb has been relatively stable and he has been asymptomatic. Agree with GI that this will likely be limited. Will need to discuss whether or not he needs IVC filter as he has significant DVT/PE Hx. Virtual c-scope ordered per my partner, will need 3 day prep for this, will discuss its overall utility. 04/25/17 13:49 Subjective: No complaints, denies pain. Had a BM this AM, per RN was not bloody Objective: Vital Signs Temp Pulse Resp BP Pulse Ox 36.4 C 67 13 112/82 H 97 04/25/17 11:56 04/25/17 11:56 04/25/17 11:56 04/25/17 11:56 04/25/17 11:56 Laboratory Results 04/25/17 10:30 04/25/17 05:50 04/24/17 04/25/17 04/26/17 05:59 05:59 05:59 Intake Total 2126 Output Total 1350 350 Balance 776 -350 PT 16.9 SEC (12.0-15.0) H 04/25/17 05:50 INR 1.37 (0.83-1.16) H 04/25/17 05:50 ICD10 Worksheet Patient Problems: Problems Problem Status Onset GIB (gastrointestinal bleeding) Acute Hypotension Acute Lightheaded Acute Abdominal pain Acute Fever and chills Acute Liver function test abnormality Acute Pulmonary embolism Acute
--- NOTE | 2017-04-25 16:10 | PDMN ---
Medical Necessity Medical necessity: change to IP; los >2 mn for GIB s/p recent small bowel resection ?r/t anastomosis, for serial labs, PPI, colonoscopy; comorbid DM, htn & hx of PE/DVT/?arterial thrombosis; possible IVC filter r/t high risk in setting of hold on AC; per progress note & order 04/25/17
--- NOTE | 2017-04-25 16:37 | GCON ---
[f rep st] CONSULTATION PULMONARY/CRITICAL CARE CONSULTATION DATE OF CONSULTATION: 04/25/2017 REASON FOR CONSULTATION: Intensive care unit evaluation and management of acute GI bleeding. HISTORY: The patient is a very pleasant 82-year-old, who is known to me from the office. He has a h istory of DVT and pulmonary embolism, and he is on chronic anticoagulation. Two weeks ago, he presen vivi with abdominal pain and was found to have an ischemic bowel. This was resected. The etiology of the ischemia was felt to be due to pressure necrosis from a fecalith. This was documented by pathol josé miguel. No embolic source was found. He was on Eliquis at the time of this event. He was discharged h ome. He presented yesterday secondary to lightheadedness to his primary care physician. He was not having bloody tools at that time. He was found to be anemic. He was thus admitted for further evalu ation. Since admission, he has done well. He is had a bowel movement, which has been brown but heme -positive. He has been seen by Gastroenterology. Endoscopy is planned. PAST MEDICAL HISTORY: Remarkable for the DVT/PE and chronic anticoagulation, obstructive sleep apnea , for which he uses CPAP and oxygen, systemic hypertension, sick sinus syndrome with a pacemaker, and type 2 diabetes. DRUG ALLERGIES: Iodine, neomycin, polymyxin, and bacitracin. SOCIAL HISTORY: The patient is , with a very supportive . Significant alcohol is negativ e. He is a nonsmoker. FAMILY HISTORY: Noncontributory. REVIEW OF SYSTEMS: 10-point review of systems are negative except as outlined above. Please note th at since his discharge 2 weeks ago he was treated with Lovenox bridge and Coumadin; however, INR on a dmission was 1.37. PHYSICAL EXAMINATION: GENERAL: Reveals a pleasant gentleman, who is lying comfortably in bed. MARY JANE L SIGNS: Blood pressure is 112/82, heart rate 70 and paced, respiratory rate is 14. On 2 L, saturat ions are 97%. He is afebrile. HEENT/NECK: Unremarkable for lymphadenopathy or thyromegaly. Pupils are equal. There is no jugular venous distention. Mucous membranes are moist. CHEST: Clear bilat erally. Breath sounds are somewhat diminished at the bases. HEART: Tones are distant. The rhythm is regular and paced. There are no gallops; no significant murmurs. ABDOMEN: Somewhat overweight, soft, nontender. Bowel sounds are present. RECTAL: Not performed. EXTREMITIES: Unremarkable for significant edema. There are no cords; no tenderness. DATABASE: Hematocrit is 23.8, slightly down from 26.9 on admission yesterday. INR is 1.37, PTT 32. Chemistries are within normal limits. Glucose is mildly elevated in the 150-180 range. Liver funct ion studies are normal. Albumin is 2.3. ASSESSMENT: 1. Gastrointestinal bleed. This appears to have for the most part resolved, and he is now equilibra ting. Stools are brown and formed but are heme-positive. GI has seen the patient and is planning on possible endoscopy. He did have more significant bleeding immediately postoperatively when he was o n anticoagulation. Bleeding is probably secondary to surgical issues related to his anastomosis. Th is appears to be resolving. 2. History of deep vein thrombosis/pulmonary embolism. He is currently off anticoagulation, has bee n off for several days now. It will be important to restart anticoagulation as soon as possible. We can start with prophylactic anticoagulation, possibly tomorrow, based on his progress today. 3. History of obstructive sleep apnea. He is on CPAP and oxygen. His will bring this in. 4. Acute blood-loss anemia. Hematocrit is 23. Serial hematocrits will be followed and blood given if needed. Further plans and recommendations will be made based on his progress over the next 12-24 hours. /[id number]/MODL
[2017-04-25 17:12] LABS: HEMATOCRIT 26.5 % (40.0-51.0); HEMOGLOBIN 9.2 g/dL (13.7-17.5)
[2017-04-25] MEDS: ATORVASTATIN CALCIUM 10 MG TAB PO SCH (21:00)
[2017-04-25] MEDS: TAMSULOSIN HCL 0.4 MG CAP PO SCH (21:00)
[2017-04-25] MEDS ORDERED: LISINOPRIL 20 MG TAB PO SCH (21:00)
[2017-04-25 21:28] LABS: HEMATOCRIT 25.4 % (40.0-51.0); HEMOGLOBIN 8.9 g/dL (13.7-17.5)
[2017-04-26 06:16] LABS: HEMATOCRIT 25.6 % (40.0-51.0); HEMOGLOBIN 8.7 g/dL (13.7-17.5)
[2017-04-26] MEDS: INSULIN LISPRO 100 UNIT/ML SC SCH ×3 (07:57→16:50)
[2017-04-26] MEDS: PANTOPRAZOLE SODIUM 40 MG in NS 100 ML IV SCH (08:44)
[2017-04-26] MEDS: CHOLECALCIFEROL VIT D3 1,000 UNITS TAB PO SCH ×2 (08:44→20:42)
[2017-04-26] MEDS: FLUoxetine 20 MG CAP PO SCH (08:44)
[2017-04-26] MEDS ORDERED: URSODIOL 300 MG CAP PO SCH (09:00)
[2017-04-26 12:24] LABS: HEMATOCRIT 27.6 % (40.0-51.0); HEMOGLOBIN 9.4 g/dL (13.7-17.5)
--- NOTE | 2017-04-26 14:29 | SOAPPROG ---
QUINTEN Progress Note Assessment/Plan: Assessment/Plan: - 82yo M s/p SBR for ischemic SB performed 04/13, now returns with hematochezia and drifting Hct - Rich looks great, his vitals and Hb have been stable over the last 24hrs and he has been having bowel function, none of which has been bloody - Plan will be to ADAT. Will check Hb again in the AM and plan for home tomorrow off all anticoag - Will see him back in clinic next week where will check lower ext ultrasound to r/o DVT and then restart Eliquis at that time barring any bleeding episodes. - Spent >30mins discussing this with family at bedside today 04/25/17 13:49 04/26/17 14:28 Subjective: Tolerating a reg diet, no additional bloody BMs Objective: Vital Signs Temp Pulse Resp BP Pulse Ox 36.2 C 66 13 106/51 L 94 04/26/17 08:00 04/26/17 08:00 04/26/17 08:00 04/26/17 08:00 04/26/17 08:00 Laboratory Results 04/26/17 12:20 04/25/17 04/26/17 04/27/17 05:59 05:59 05:59 Intake Total 2025 Output Total 1200 375 Balance 826 -375 PT 16.9 SEC (12.0-15.0) H 04/25/17 05:50 INR 1.37 (0.83-1.16) H 04/25/17 05:50 ICD10 Worksheet Patient Problems: Problems Problem Status Onset GIB (gastrointestinal bleeding) Acute Hypotension Acute Lightheaded Acute Abdominal pain Acute Fever and chills Acute Liver function test abnormality Acute Pulmonary embolism Acute
--- NOTE | 2017-04-26 14:36 | PDINTPN ---
Power Press Operator Progress Note Assessment/Plan: Assessment: Acute GI bleed. Probably related to recent small bowel resection and bleeding from the anastomosis. Now resolved or very low grade. Surgery and GI are following. Hematocrit is stable. Acute blood-loss anemia: Hematocrit 27, no change to slightly better over the last 24+ hours. History of DVT and pulmonary embolism. These were separate events. He was on anticoagulation, stop now secondary to this acute bleed. No indication for a filter at this time. He should be ambulating at least three times daily, using Juan M hose while he is in bed, and possibly be on prophylactic anticoagulation. Will discuss the latter with surgery. Plan: Continue present care. Follow H&H. Consider starting heparin 5000 three times daily. We can stop this at any time if he has any increased bleeding. He is doing well and is to be transferred to a medical-surgical bed today. Subjective: Doing well. No complaints. Denies shortness of breath, abdominal pain, leg pain or swelling. Has had formed brown bowel movements, no melena Objective: Vital Signs Temp Pulse Resp BP Pulse Ox 36.2 C 66 13 106/51 L 94 04/26/17 08:00 04/26/17 08:00 04/26/17 08:00 04/26/17 08:00 04/26/17 08:00 Laboratory Results 04/26/17 12:20 04/25/17 04/26/17 04/27/17 05:59 05:59 05:59 Intake Total 2025 Output Total 1200 375 Balance 826 -375 PT 16.9 SEC (12.0-15.0) H 04/25/17 05:50 INR 1.37 (0.83-1.16) H 04/25/17 05:50 Physical Exam - Physical Exam General Appearance: alert, no apparent distress EENT: other (On room air) Neck: normal inspection Respiratory: lungs clear Cardiac/Chest: regular rate, rhythm (Paced) Abdomen: normal bowel sounds, non-tender, soft Skin: warm/dry, pallor Extremities: No pedal edema Neuro/Psych: no motor/sensory deficits, No cognition abnormalities ICD10 Worksheet Patient Problems: Problems Problem Status Onset Pulmonary embolism Acute Liver function test abnormality Acute Abdominal pain Acute Fever and chills Acute Hypotension Acute Lightheaded Acute GIB (gastrointestinal bleeding) Acute
[2017-04-26 15:29] VITALS: RESP 16
--- NOTE | 2017-04-26 18:11 | HOSPPROG ---
Hospitalist Progress Note Assessment/Plan: Assessment: 82-year-old male presents with acute blood loss anemia in the setting of acute lower GI bleed Plan: #Acute blood loss anemia. Evidenced by Hgb 8s, s/p 1u PRBC -cont to monitor Hgb level #Acute lower GI bleed. Suspect bleeding at anastomosis site, appreciate GI consultation -d/w Dr. Santiago, we agree that no scope indicated at this time, as BMs brown , Hgb stabilizing, recommends holding anticoagulation x 7 days, then rechecking as outpt -adv diet and gauge effect -cont PPI #Hx DVT. Approx 2 years ago, no recent US, no e/o on physical exam -high risk of recurrence, keep on SCDs -get outpt US this week prior to decision as to whether to restart anticoagulation -rec eliquis in outpt setting, lower risk bleed, better chance of level stability #DM: hold Metformin. SSI while here #HTN: cont holding #ÁLVARO: on CPAP Diet. Adv today PPx. High risk, SCDs, holding pharm Code. Full Dispo. ADD 04/27, pending stability of above Subjective: 2 lefty BMs yesterday Objective: Vital Signs Temp Pulse Resp BP Pulse Ox 36.6 C 66 16 87/55 L 94 04/26/17 15:23 04/26/17 15:23 04/26/17 15:23 04/26/17 17:35 04/26/17 15:23 Laboratory Results 04/26/17 12:20 04/25/17 04/26/17 04/27/17 05:59 05:59 05:59 Intake Total 2026 350 Output Total 1200 375 Balance 826 -25 PT 16.9 SEC (12.0-15.0) H 04/25/17 05:50 INR 1.37 (0.83-1.16) H 04/25/17 05:50 - Pending Discharge Pending Discharge Within 24 Hours: Yes Pending Discharge Date: 04/27/17 Pending Discharge Time: 11:00 - Physical Exam Constitutional: no apparent distress, appears nourished, not in pain Cardiovascular: regular rate and rhythym, no murmur, rub, or gallop, No edema Respiratory: no respiratory distress, no rales or rhonchi, clear to auscultation Gastrointestinal: normoactive bowel sounds, soft, non-tender abdomen, no palpable masses, distension (moderated) Skin: other (surg sites w/o erythema/induration, mild ecchymoses, no wound dehis ) Neurologic: AAOx3, sensation intact bilaterally Psychiatric: interacting appropriately, not anxious, not encephalopathic, thought process linear ICD10 Worksheet Patient Problems: Problems Problem Status Onset Pulmonary embolism Acute Liver function test abnormality Acute Abdominal pain Acute Fever and chills Acute Hypotension Acute Lightheaded Acute GIB (gastrointestinal bleeding) Acute
[2017-04-26] MEDS: PANTOPRAZOLE SODIUM 40 MG TAB PO SCH (20:42)
[2017-04-26] MEDS: TAMSULOSIN HCL 0.4 MG CAP PO SCH (20:42)
[2017-04-26] MEDS: ATORVASTATIN CALCIUM 10 MG TAB PO SCH (20:42)
[2017-04-26] MEDS: URSODIOL 300 MG CAP PO SCH (21:08)
[2017-04-27 04:38] LABS: HEMATOCRIT 26.8 % (40.0-51.0); MEAN CELL HEMOGLOBIN 32.6 pg (27.9-34.1); MEAN CELL HEMOGLOBIN CONCENTR. 33.6 g/dL (32.4-36.7); MEAN CELL VOLUME 97.1 fL (81.5-99.8); RED BLOOD CELL COUNT 2.76 10^6/uL (4.40-6.38)
[2017-04-27] MEDS: CHOLECALCIFEROL VIT D3 1,000 UNITS TAB PO SCH (08:55)
[2017-04-27] MEDS: FLUoxetine 20 MG CAP PO SCH (08:55)
[2017-04-27] MEDS: PANTOPRAZOLE SODIUM 40 MG TAB PO SCH (08:55)
[2017-04-27] MEDS: URSODIOL 300 MG CAP PO SCH (09:05)
[2017-04-27] MEDS: INSULIN LISPRO 100 UNIT/ML SC SCH ×2 (09:07→13:46)
--- NOTE | 2017-04-27 12:23 | PDDCSUM ---
Discharge Summary Discharge Summary: DISCHARGE SUMMARY Date of Admission April 24 Date of Discharge April 27 DISCHARGE DIAGNOSES -GI bleed likely secondary to recent small-bowel resection HOSPITAL COURSE The patient was admitted from the ED where he presented with lightheadedness and a low hemoglobin. At that time, the patient was just under 2 weeks out from a small-bowel resection. He did receive blood transfusion on the evening of admission but since then his hemoglobin has been stable. He did not have any bloody bowel movements throughout his admission. His diet was subsequently restarted in advance to regular which was well tolerated on the day of admission. She was discharged home in stable condition on the afternoon of the . DISCHARGE MEDICATIONS All medications were restarted with the exception of his oral blood thinners. DISPOSITION Home FOLLOW UP Follow up with me in the office next week. We will have an ultrasound prior to his arrival. Will likely restart his anticoagulation on that visit.
--- NOTE | 2017-04-27 13:25 | HOSPPROG ---
Hospitalist Progress Note Assessment/Plan: #Acute blood loss anemia - stable H/H overnight. #Acute lower GI bleed - seems resolved at this time. Hold anticoagulation for at minimum 7 days. #Hx Recurrent DVT/PE's - I feel bleeding risk probably outweighs thrombosis risk currently. Plan on resumption of anticoagulation after 7 days if no signs or symptoms of recurrent bleeding. #DM2 - resume metformin. #HTN - resume outpatient regimen. #ÁLVARO: on CPAP Diet. Adv today PPx. High risk, SCDs, holding pharm Code. Full Dispo - appears stable for discharge home today. Subjective: No acute events overnight. Patient is receiving orders for discharge including a follow up LE ultrasound later this week. We reviewed symptoms that could suggest a recurrent DVT or PE as he will be leaving the hospital without anticoagulation. He and his appear to understand and I encourged them to have a low threshold for evaluation if new symptoms arise. Objective: Vital Signs Temp Pulse Resp BP Pulse Ox 36.6 C 70 16 126/64 H 93 04/27/17 08:40 04/27/17 08:40 04/27/17 08:40 04/27/17 08:40 04/27/17 08:40 Laboratory Results 04/27/17 04:30 04/26/17 04/27/17 04/28/17 05:59 05:59 05:59 Intake Total 2025 850 Output Total 1200 1375 400 Balance 826 -525 -400 PT 16.9 SEC (12.0-15.0) H 04/25/17 05:50 INR 1.37 (0.83-1.16) H 04/25/17 05:50 - Physical Exam Constitutional: no apparent distress, appears nourished, not in pain Cardiovascular: regular rate and rhythym, no murmur, rub, or gallop, No edema Respiratory: no respiratory distress, no rales or rhonchi, clear to auscultation Genitourinary: No zamora in urethra ICD10 Worksheet Patient Problems: Problems Problem Status Onset GIB (gastrointestinal bleeding) Acute Hypotension Acute Lightheaded Acute Abdominal pain Acute Fever and chills Acute Liver function test abnormality Acute Pulmonary embolism Acute
--- NOTE | 2017-04-27 13:47 | ASDISCHSUM ---
Discharge Information Plan Status:Home with No Needs Medically Cleared to Leave:04/27/2017 Discharge Date:04/27/2017 CM D/C Disposition:Home, Routine, Self-Care ADT D/C Disposition:Home, Routine, Self-Care Projected Discharge Date:04/27/2017 03:00 PM Transportation at D/C:Family Discharge Delay Reason: Follow-Up Date:04/27/2017 03:00 PM Discharge Slot: Final Diagnosis:GI bleed secondary to recent small bowel resection Placement Information Patient Contact Information Contact Name:PHILIP Relationship: Address:[address] [place] Alternate Phone: [facility]/Zip Code:[place] [address] Email: Financial Information Financial Class: Primary Plan Desc:MEDICARE INPATIENT Primary Plan Number:[id number] Secondary Plan Desc:WILLIAM [place] Car reviews [facility] Secondary Plan Number:[id number] Assessment Information [facility] CM Progress Note CM Note CM Note Notes: Chart reviewed. Met with pt and to discuss dc poc. Pt is current with [facility]. He is admitted with GI bleed. and dizzyness, To have virtual coloscopy at some point. Will call [facility] to update, CM to follow. Date Signed: 04/25/2017 01:07 PM Electronically Signed By:Desirae Barragan RN LACE LACE Length of stay for Answers: 1 day current admission Acuity / Level of Care Answers: Was the patient admitted to hospital via the emergency department? Yes: Comorbidities - select Answers: Diabetes without all that apply complications Emergency dept visits in Answers: 1 last 6 months Score: 6 Date Signed: 04/26/2017 12:13 PM Electronically Signed By:Desirae Barragan RN [facility] CM Progress Note CM Note CM Note Notes: Patient to discharge home Independent to follow up with . [facility] notified that patient will not be needing home care at this time. Patient was current with them. No additional Case management needs apparent at mitzy time. Date Signed: 04/27/2017 01:46 PM Electronically Signed By:RADHA Chen Intervention Information
[2017-04-27 14:39] VITALS: BP 124/87; PULSE 98; TEMP 99.2; O2SAT 96
[2017-05-22] MEDS ORDERED: CYANO/VITAMIN B12 1000 MCG/ML VIAL IM SCH (09:00)
== END 2017-04-27 14:10 | disposition home or self-care (01) | DRG 312 ==
LOC: F2N 21:58 → OBSVTOIN 04-25 15:15 → F1N 04-26 15:15
PROVIDERS: ADMIT Family Medicine; ATTEND Internal Medicine
PROC: 30233N1 Transfusion of Nonautologous Red Blood Cells into Peripheral Vein, Percutaneous Approach (ICD-10-PCS; principal; 2017-04-24)
DX: I95.1 Orthostatic hypotension (principal); K91.840 Postprocedural hemorrhage of a digestive system organ or structure following a digestive system procedure; D64.9 Anemia, unspecified; J44.9 Chronic obstructive pulmonary disease, unspecified; I10 Essential (primary) hypertension; E11.9 Type 2 diabetes mellitus without complications; G47.33 Obstructive sleep apnea (adult) (pediatric); N40.0 Benign prostatic hyperplasia without lower urinary tract symptoms; Z86.718 Personal history of other venous thrombosis and embolism; Z86.711 Personal history of pulmonary embolism; Z95.0 Presence of cardiac pacemaker; Z79.01 Long term (current) use of anticoagulants; Z79.84 Long term (current) use of oral hypoglycemic drugs
CPT/HCPCS: 96374; J1815; P9016; P9040

== ENCOUNTER → 2017-05-02 | Outpatient (CLI) | payer OTHER | LOC: BMCIMAGING 14:59 | PROVIDERS: ATTEND Surgery | DX: I26.99 Other pulmonary embolism without acute cor pulmonale (principal) ==

== ENCOUNTER 2017-10-26 19:59 | Inpatient (IN) | payer OTHER ==
--- NOTE | 2017-10-26 20:33 | CPEKG ---
Heart Rate: 72 RR Interval: 833 P-R Interval: 212 QRSD Interval: 98 QT Interval: 404 QTC Interval: 443 P [place]: 49 QRS [place]: 68 T Wave [place]: 77 EKG Severity - ABNORMAL ECG - EKG Impression: ATRIAL-PACED COMPLEXES Electronically Signed By: Wicho Middleton 26-Oct-2017 23:02:49
[2017-10-26 20:34] LABS: PLATELET COUNT 180 10^3/uL (150-400)
[2017-10-26] MEDS ORDERED: ACETAMINOPHEN 500 MG TAB ONE (20:41)
[2017-10-26] MEDS ORDERED: ACETAMINOPHEN 500 MG TAB PO ONE (20:47)
[2017-10-26] MEDS ORDERED: NS 3,300 ML IV ONE (20:47)
--- NOTE | 2017-10-26 20:47 | EDPHY ---
H & P Time Seen by Provider: 10/26/17 20:04 HPI/ROS: Chief complaint. Cough, fever HPI. 82-year-old man presents to the emergency department with cough and fever for 2 days. He had 1 short episode of upper abdominal pain this morning and then vomited x3. Minimal to no pain now. He has had chills and shaking today. Cough is nonproductive. Slight shortness of breath. Slight chest discomfort. No diarrhea. No rash. No recent travel or known exposures. Tylenol earlier today but he threw it up. ROS Constitutional. Fever and chills Eyes. no problems with vision ENT. no sore throat, no nasal drainage Cardiovascular. Chest discomfort Respiratory. Shortness of breath and cough Abdominal. Abdominal pain this morning now resolved. Nausea and vomiting. . no problems urinating MS. no calf pain/swelling, no neck/back pain, no joint pain Skin. no rash Lymph. no swollen glands Neuro. 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 ENT, Mouth: Mucous membranes are moist. Respiratory: No retractions. Inspiratory expiratory rhonchi Cardiovascular: Regular rate and rhythm. Gastrointestinal: Abdomen is soft and nontender, no masses, bowel sounds normal. Neurological: Awake and alert, sensory and motor exams grossly normal. Skin: Warm and dry, no rashes. Musculoskeletal: Neck is supple nontender. Extremities symmetrical, full range of motion. Psychiatric: Patient is oriented X 3, there is no agitation. Constitutional: Initial Vital Signs Temperature (C) 38.1 C 10/26/17 20:00 Heart Rate 68 10/26/17 20:00 Respiratory Rate 18 10/26/17 20:00 Blood Pressure 122/49 H 10/26/17 20:00 O2 Sat (%) 88 L 10/26/17 20:00 O2 Delivery Mode Nasal Cannula O2 (L/minute) 2 Allergies/Adverse Reactions: bacitracin zinc [From Neosporin] Allergy (Severe, Verified 10/26/17 20:15) INFECTION iodine [Iodine] Allergy (Severe, Verified 10/26/17 20:15) FELT VERY HOT neomycin sulfate [From Neosporin] Allergy (Severe, Verified 10/26/17 20:15) INFECTION polymyxin B sulfate [From Neosporin] Allergy (Severe, Verified 10/26/17 20:15) INFECTION balsam curtis Allergy (Intermediate, Verified 10/26/17 20:15) PIMPLES ON LEGS bacitracin Allergy (Unknown, Verified 10/26/17 20:15) INFECTION gramicidin D Allergy (Unknown, Verified 10/26/17 20:15) INFECTION polymyxin B Allergy (Unknown, Verified 10/26/17 20:15) INFECTION bacitracin zinc Allergy (Unknown, Uncoded 10/26/17 20:15) INFECTION neomycin sulfate Allergy (Unknown, Uncoded 10/26/17 20:15) INFECTION polymyxin B sulfate Allergy (Unknown, Uncoded 04/19/17 14:35) INFECTION Home Medications: Medication Instructions Recorded Cyanocobalamin (Vitamin B-12) 1,000 mcg IM Q30D 08/16/11 [Cyanocobalamin Injection] FLUoxetine [Prozac 20 MG (*)] 20 mg PO DAILY 08/16/11 Fluocinonide 0.05% [Lidex 0.05% 1 dionisio TP DAILY PRN 08/16/11 Cream] Atorvastatin Calcium [Lipitor 10 10 mg PO HS 09/16/15 mg (*)] Lisinopril [Zestril 20 mg (*)] 20 mg PO HS 09/16/15 metFORMIN HCL [Metformin HCl ER] 500 mg PO BIDMEAL 09/16/15 Tamsulosin HCl [Flomax 0.4 MG (*)] 0.4 mg PO HS #30 cap 04/20/17 Cholecalciferol Vit D3 [Vitamin D3 1,000 units PO DAILY 04/24/17 (*)] Albuterol [Ventolin Hfa Inhaler] 2 puffs IH TID PRN 10/26/17 Apixaban [Eliquis] 2.5 mg PO BID 10/26/17 Ursodiol 500 mg PO BID 10/26/17 Medical Decision Making - Diagnostics EKG Interpretation: EKG interpreted by me shows paced complex with normal axis. QRS is normal. There is no significant ST elevation or depression. There is no arrhythmia. The rate is 72 Imaging Results: Imaging Impressions Chest X-Ray 10/26/17 20:24 Impression: 1. Query bronchitis with no superimposed pneumonia identified. 2. See above report for additional findings.. Procedures: IV normal saline. Septic workup Tylenol for fever ED Course/Re-evaluation: Serum lactate is positive. Severe sepsis declared now at 20:47 30 male per kg IV fluid bolus . IV Levaquin. Patient, his , and I discussed imaging and lab results. We discussed treatment plan including recommendation for admission. They expressed understanding and agreement I consulted discussed case with Dr. Pearce, hospitalist, who agrees to the admission and see the patient in the emergency department Differential Diagnosis: I believe the patient likely has pneumonia. He has cough and fever. He has positive lactate. He did have transient abdominal pain earlier today and 6 months ago did have ischemic bowel. He will be sent for CT scan of his abdomen. - Data Points Laboratory Results: Laboratory Results 10/26/17 20:15 10/26/17 20:15 10/26/17 10/26/17 10/26/17 21:30 20:45 20:20 WBC RBC Hgb Hct MCV MCH MCHC RDW Plt Count MPV Neut % (Auto) Lymph % (Auto) [place] % (Auto) Eos % (Auto) Baso % (Auto) Nucleat RBC Rel Count Absolute Neuts (auto) Absolute Lymphs (auto) Absolute Monos (auto) Absolute Eos (auto) Absolute Basos (auto) Absolute Nucleated RBC Immature Gran % Immature Gran # PT INR APTT VBG Lactic Acid 1.8 mmol/L mmol/L (0.7-2.1) Sodium Potassium Chloride Carbon Dioxide Anion Gap BUN Creatinine Estimated GFR Glucose Calcium Total Bilirubin Conjugated Bilirubin Unconjugated Bilirubin AST ALT Alkaline Phosphatase Total Protein Albumin Lipase Procalcitonin Urine Color YELLOW Urine Appearance CLEAR Urine pH 5.0 (5.0-7.5) Ur Specific [place] 1.018 (1.002-1.030) Urine Protein NEGATIVE (NEGATIVE) Urine Ketones NEGATIVE (NEGATIVE) Urine Blood NEGATIVE (NEGATIVE) Urine Nitrate NEGATIVE (NEGATIVE) Urine Bilirubin NEGATIVE (NEGATIVE) Urine Urobilinogen 4.0 EU H EU (0.2-1.0) Ur Leukocyte Esterase NEGATIVE (NEGATIVE) Urine Glucose NEGATIVE (NEGATIVE) Nasal Influenza A PCR NEGATIVE FOR FLU A (NEGATIVE) Nasal Influenza B PCR NEGATIVE FOR FLU B (NEGATIVE) 10/26/17 10/26/17 10/26/17 20:15 20:15 20:15 WBC RBC Hgb Hct MCV MCH MCHC RDW Plt Count MPV Neut % (Auto) Lymph % (Auto) [place] % (Auto) Eos % (Auto) Baso % (Auto) Nucleat RBC Rel Count Absolute Neuts (auto) Absolute Lymphs (auto) Absolute Monos (auto) Absolute Eos (auto) Absolute Basos (auto) Absolute Nucleated RBC Immature Gran % Immature Gran # PT 15.2 SEC H SEC (12.0-15.0) INR 1.18 H (0.83-1.16) APTT 29.6 SEC SEC (23.0-38.0) VBG Lactic Acid Sodium 140 mEq/L mEq/L (135-145) Potassium 4.2 mEq/L mEq/L (3.5-5.2) Chloride 106 mEq/L mEq/L (97-110) Carbon Dioxide 20 mEq/l L mEq/l (22-31) Anion Gap 14 mEq/L mEq/L (8-16) BUN 15 mg/dL mg/dL (7-23) Creatinine 0.9 mg/dL mg/dL (0.7-1.3) Estimated GFR > 60 Glucose 184 mg/dL H mg/dL (70-100) Calcium 9.3 mg/dL mg/dL (8.5-10.4) Total Bilirubin Pending 1.4 mg/dL mg/dL (0.1-1.4) Conjugated Bilirubin Pending Unconjugated Bilirubin Pending AST Pending ALT Pending Alkaline Phosphatase Pending Total Protein Pending Albumin Pending Lipase Pending Procalcitonin Pending Urine Color Urine Appearance Urine pH Ur Specific [place] Urine Protein Urine Ketones Urine Blood Urine Nitrate Urine Bilirubin Urine Urobilinogen Ur Leukocyte Esterase Urine Glucose Nasal Influenza A PCR Nasal Influenza B PCR 10/26/17 10/26/17 20:15 20:15 WBC 9.45 10^3/uL 10^3/uL (3.80-9.50) RBC 4.51 10^6/uL 10^6/uL (4.40-6.38) Hgb 14.3 g/dL g/dL (13.7-17.5) Hct 41.0 % % (40.0-51.0) MCV 90.9 fL fL (81.5-99.8) MCH 31.7 pg pg (27.9-34.1) MCHC 34.9 g/dL g/dL (32.4-36.7) RDW 15.6 % H % (11.5-15.2) Plt Count 180 10^3/uL 10^3/uL (150-400) MPV 10.9 fL fL (8.7-11.7) Neut % (Auto) 86.5 % H % (39.3-74.2) Lymph % (Auto) 5.5 % L % (15.0-45.0) [place] % (Auto) 6.8 % % (4.5-13.0) Eos % (Auto) 0.6 % % (0.6-7.6) Baso % (Auto) 0.3 % % (0.3-1.7) Nucleat RBC Rel Count 0.0 % % (0.0-0.2) Absolute Neuts (auto) 8.17 10^3/uL H 10^3/uL (1.70-6.50) Absolute Lymphs (auto) 0.52 10^3/uL L 10^3/uL (1.00-3.00) Absolute Monos (auto) 0.64 10^3/uL 10^3/uL (0.30-0.80) Absolute Eos (auto) 0.06 10^3/uL 10^3/uL (0.03-0.40) Absolute Basos (auto) 0.03 10^3/uL 10^3/uL (0.02-0.10) Absolute Nucleated RBC 0.00 10^3/uL 10^3/uL (0-0.01) Immature Gran % 0.3 % % (0.0-1.1) Immature Gran # 0.03 10^3/uL 10^3/uL (0.00-0.10) PT INR APTT VBG Lactic Acid 2.9 mmol/L H mmol/L (0.7-2.1) Sodium Potassium Chloride Carbon Dioxide Anion Gap BUN Creatinine Estimated GFR Glucose Calcium Total Bilirubin Conjugated Bilirubin Unconjugated Bilirubin AST ALT Alkaline Phosphatase Total Protein Albumin Lipase Procalcitonin Urine Color Urine Appearance Urine pH Ur Specific [place] Urine Protein Urine Ketones Urine Blood Urine Nitrate Urine Bilirubin Urine Urobilinogen Ur Leukocyte Esterase Urine Glucose Nasal Influenza A PCR Nasal Influenza B PCR Medications Given: Levofloxacin/Dextrose (Levaquin 750 Mg (Premix)) 150 mls @ 100 mls/hr IV EDNOW ONE PRN Reason: Protocol Stop: 10/26/17 22:54 Last Admin: 10/26/17 21:35 Dose: 150 mls Discontinued Medications Acetaminophen (Tylenol) 1,000 mg PO EDNOW ONE Stop: 10/26/17 20:48 Last Admin: 10/26/17 20:49 Dose: 1,000 mg Sodium Chloride (Ns) 3,300 mls @ 6,600 mls/hr 30 ml/kg infuse over 30 min ( 3300 ml) IV EDNOW ONE PRN Reason: Protocol Stop: 10/26/17 21:16 Last Admin: 10/26/17 20:50 Dose: 3,300 mls Departure - Departure Disposition: Home, Routine, Self-Care Clinical Impression: Pneumonia Sepsis Qualifiers: Sepsis type: sepsis due to unspecified organism Qualified Code(s): A41.9 - Sepsis, unspecified organism Condition: Fair
[2017-10-26 20:48] LABS: INR 1.18 (0.83-1.16); PROTIME(PATIENT) 15.2 SEC (12.0-15.0)
[2017-10-26] MEDS ORDERED: ONDANSETRON 4 MG/2 ML VIAL IVP PRN (21:39)
[2017-10-26] MEDS ORDERED: PROMETHAZINE HCL 25 MG TAB PO PRN (21:39)
[2017-10-26] MEDS ORDERED: PROMETHAZINE HCL 25 MG/ML INJ IVP PRN (21:39)
[2017-10-26] MEDS ORDERED: ONDANSETRON DISINTEGRATING 4 MG TAB PO PRN (21:39)
[2017-10-26] MEDS ORDERED: IOPAMIDOL (ISOVUE 370) 100 ML BTL IV ONE (21:46)
[2017-10-26] MEDS ORDERED: FLUOCINONIDE 0.05% 15 GM CREAM TP PRN (22:23)
[2017-10-26] MEDS ORDERED: guaiFENesin/CODEINE PHOS 10 ML UDCUP PO PRN (22:24)
--- NOTE | 2017-10-26 22:26 | PDGENHP ---
History and Physical - Chief Complaint Acute rigors - History of Present Illness Primary care provider: Dr. Ying Primary GI: Dr. Madera Primary Surg: Dr. Santiago HPI: 82-year-old male presenting with acute rigors characterized by his as diffuse body tremors with the sensation of being cold, but feeling hot to the touch, with associated nonproductive cough, generalized weakness, pain located in his upper abdomen, bilious vomiting x3 episodes on the day of presentation. Patient reports that his onset of symptoms was approximately 3 days ago when he began experiencing upper abdominal pain similar in character to previous previous gallstone pancreatitis. The duration was persistent thereafter, but escalated on the day prior to presentation when patient began feeling generally weak, became increasingly fatigue and was abnormally resting, and his cough became more noticeable. Subsequently, on the day of presentation , the patient began experiencing vomiting as well as rigors, which were exacerbated by eating a rabia's pieces cup, and his brought him to the emergency department. He has otherwise been taking all of his home medications , which includes a DVT prophylactic dose of Eliquis notably 2.5 mg twice daily. He has not been experiencing any melena or hematochezia, and he reports that his most recent bowel movement was brown, on the day prior to presentation. His oral intake of liquids has been notably low, and the patient has recently been at [place], at their home in the [facility]. The patient's has also been ill, reportedly with influenza B as well as pneumonia. History Information - Allergies/Home Medication List Allergies/Adverse Reactions: bacitracin zinc [From Neosporin] Allergy (Severe, Verified 10/26/17 20:15) INFECTION iodine [Iodine] Allergy (Severe, Verified 10/26/17 20:15) FELT VERY HOT neomycin sulfate [From Neosporin] Allergy (Severe, Verified 10/26/17 20:15) INFECTION polymyxin B sulfate [From Neosporin] Allergy (Severe, Verified 10/26/17 20:15) INFECTION balsam curtis Allergy (Intermediate, Verified 10/26/17 20:15) PIMPLES ON LEGS bacitracin Allergy (Unknown, Verified 10/26/17 20:15) INFECTION gramicidin D Allergy (Unknown, Verified 10/26/17 20:15) INFECTION polymyxin B Allergy (Unknown, Verified 10/26/17 20:15) INFECTION bacitracin zinc Allergy (Unknown, Uncoded 10/26/17 20:15) INFECTION neomycin sulfate Allergy (Unknown, Uncoded 10/26/17 20:15) INFECTION polymyxin B sulfate Allergy (Unknown, Uncoded 04/19/17 14:35) INFECTION Home Medications: Cyanocobalamin (Vitamin B-12) [Cyanocobalamin Injection] 1,000 mcg IM Q30D 08/16 [Last Taken 10/06/17] FLUoxetine [Prozac 20 MG (*)] 20 mg PO DAILY 08/16/11 [Last Taken 10/26/17] Fluocinonide 0.05% [Lidex 0.05% Cream] 1 dionisio TP DAILY PRN 08/16/11 [Last Taken 04/24/17] Atorvastatin Calcium [Lipitor 10 mg (*)] 10 mg PO HS 09/16/15 [Last Taken ] Lisinopril [Zestril 20 mg (*)] 20 mg PO HS 09/16/15 [Last Taken 10/25/17] metFORMIN HCL [Metformin HCl ER] 500 mg PO BIDMEAL 09/16/15 [Last Taken 09:00] Cholecalciferol Vit D3 [Vitamin D3 (*)] 1,000 units PO DAILY 04/24/17 [Last Taken 10/26/17] Albuterol [Ventolin Hfa Inhaler] 2 puffs IH TID PRN 10/26/17 [Last Taken ] Apixaban [Eliquis] 2.5 mg PO BID 10/26/17 [Last Taken 10/26/17 09:00] Ursodiol 500 mg PO BID 10/26/17 [Last Taken 10/26/17 09:00] I have personally reviewed and updated: family history, medical history, social history, surgical history Past Medical History: on eliquis for DVT/PE - Past Medical History DVT (Recurrent with pulmonary emboli in 2016, most recent lower extremity ultrasound from April of 2017 demonstrating no evidence of ongoing DVT) Additional medical history: ÁLVARO with home CPAP. Hypertension. Diabetes mellitus type 2. Hyperlipidemia. Ischemic bowel. Carotid stenosis. BPH. Basal cell carcinoma. Gallstone pancreatitis. Pathologic bradycardia - Surgical History Additional surgical history: Cholecystectomy with papillotomy and biliary stent placement. Permanent pacemaker. TURP. Small-bowel resection in April 2017 with bleeding at the anastomosis site - Family History Additional family history: Pulmonary embolism, renal cell carcinoma, recently ill with influenza B and pneumonia - Social History Smoking Status: Never smoked Alcohol Use: Rarely Drug Use: None Additional social history: Normally independent in his ADLs comma recently residing at [place] Review of Systems Review of Systems: ROS: 10pt was reviewed & negative except for what was stated in HPI & below Constitutional: Reports: chills, fever, malaise, weakness Cardiac: Reports: chest pain Respiratory: Reports: cough Gastrointestinal: Reports: vomitting, abdominal pain, nausea Physical Exam Physical Exam: Temp Pulse Resp BP Pulse Ox 37.7 C 70 18 114/62 95 10/26/17 21:40 10/26/17 21:40 10/26/17 21:40 10/26/17 21:40 10/26/17 21:40 O2 (L/minute) 2 Constitutional: no apparent distress, not in pain, obese, No uncomfortable Eyes: PERRL, anicteric sclera, EOMI Ears, Nose, Mouth, Throat: moist mucous membranes, hearing normal, ears appear normal, no oral mucosal ulcers Cardiovascular: regular rate and rhythym, no murmur, rub, or gallop, edema ( Trace bilateral lower extremities) Respiratory: reduced air movement (On expiration bilaterally, triggering cough) , No expiratory wheeze, No inspiratory crackles, No bronchial breath sounds, No respiratory distress Gastrointestinal: tenderness (Midepigastric area), No normoactive bowel sounds ( Hypoactive bowel sounds), No guarding, No distension Skin: other (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 the 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 epigastric and right upper quadrant area ), No rash Neurologic: AAOx3, sensation intact bilaterally, No weakness (Motor strength 5/ 5 bilateral lower extremities) Psychiatric: interacting appropriately, not anxious, not encephalopathic, thought process linear Lymph, Heme, Immunologic: no cervical LAD, other (1 cm nontender bilateral submandibular lymph nodes) Lab Data & Imaging Review 10/26/17 20:15 10/26/17 20:15 WBC 9.45 10^3/uL (3.80-9.50) 10/26/17 20:15 RBC 4.51 10^6/uL (4.40-6.38) 10/26/17 20:15 Hgb 14.3 g/dL (13.7-17.5) 10/26/17 20:15 Hct 41.0 % (40.0-51.0) 10/26/17 20:15 MCV 90.9 fL (81.5-99.8) 10/26/17 20:15 MCH 31.7 pg (27.9-34.1) 10/26/17 20:15 MCHC 34.9 g/dL (32.4-36.7) 10/26/17 20:15 RDW 15.6 % (11.5-15.2) H 10/26/17 20:15 Plt Count 180 10^3/uL (150-400) 10/26/17 20:15 MPV 10.9 fL (8.7-11.7) 10/26/17 20:15 Neut % (Auto) 86.5 % (39.3-74.2) H 10/26/17 20:15 Lymph % (Auto) 5.5 % (15.0-45.0) L 10/26/17 20:15 Tom[place]kins % (Auto) 6.8 % (4.5-13.0) 10/26/17 20:15 Eos % (Auto) 0.6 % (0.6-7.6) 10/26/17 20:15 Baso % (Auto) 0.3 % (0.3-1.7) 10/26/17 20:15 Nucleat RBC Rel Count 0.0 % (0.0-0.2) 10/26/17 20:15 Absolute Neuts (auto) 8.17 10^3/uL (1.70-6.50) H 10/26/17 20:15 Absolute Lymphs (auto) 0.52 10^3/uL (1.00-3.00) L 10/26/17 20:15 Absolute Monos (auto) 0.64 10^3/uL (0.30-0.80) 10/26/17 20:15 Absolute Eos (auto) 0.06 10^3/uL (0.03-0.40) 10/26/17 20:15 Absolute Basos (auto) 0.03 10^3/uL (0.02-0.10) 10/26/17 20:15 Absolute Nucleated RBC 0.00 10^3/uL (0-0.01) 10/26/17 20:15 Immature Gran % 0.3 % (0.0-1.1) 10/26/17 20:15 Immature Gran # 0.03 10^3/uL (0.00-0.10) 10/26/17 20:15 PT 15.2 SEC (12.0-15.0) H 10/26/17 20:15 INR 1.18 (0.83-1.16) H 10/26/17 20:15 APTT 29.6 SEC (23.0-38.0) 10/26/17 20:15 VBG Lactic Acid 1.8 mmol/L (0.7-2.1) 10/26/17 21:30 Sodium 140 mEq/L (135-145) 10/26/17 20:15 Potassium 4.2 mEq/L (3.5-5.2) 10/26/17 20:15 Chloride 106 mEq/L (97-110) 10/26/17 20:15 Carbon Dioxide 20 mEq/l (22-31) L 10/26/17 20:15 Anion Gap 14 mEq/L (8-16) 10/26/17 20:15 BUN 15 mg/dL (7-23) 10/26/17 20:15 Creatinine 0.9 mg/dL (0.7-1.3) 10/26/17 20:15 Estimated GFR > 60 10/26/17 20:15 Glucose 184 mg/dL (70-100) H 10/26/17 20:15 Calcium 9.3 mg/dL (8.5-10.4) 10/26/17 20:15 Total Bilirubin 1.4 mg/dL (0.1-1.4) 10/26/17 20:15 Urine Color YELLOW 10/26/17 20:20 Urine Appearance CLEAR 10/26/17 20:20 Urine pH 5.0 (5.0-7.5) 10/26/17 20:20 Ur Specific [place] 1.018 (1.002-1.030) 10/26/17 20:20 Urine Protein NEGATIVE (NEGATIVE) 10/26/17 20:20 Urine Ketones NEGATIVE (NEGATIVE) 10/26/17 20:20 Urine Blood NEGATIVE (NEGATIVE) 10/26/17 20:20 Urine Nitrate NEGATIVE (NEGATIVE) 10/26/17 20:20 Urine Bilirubin NEGATIVE (NEGATIVE) 10/26/17 20:20 Urine Urobilinogen 4.0 EU (0.2-1.0) H 10/26/17 20:20 Ur Leukocyte Esterase NEGATIVE (NEGATIVE) 10/26/17 20:20 Urine Glucose NEGATIVE (NEGATIVE) 10/26/17 20:20 Nasal Influenza A PCR NEGATIVE FOR FLU A (NEGATIVE) 10/26/17 20:45 Nasal Influenza B PCR NEGATIVE FOR FLU B (NEGATIVE) 10/26/17 20:45 Visualized and Interpreted Chest x-ray results: Yes Chest X-Ray results: no infiltrate (Albeit there may be some atelectasis in the right lower lobe) Visualized and Interpreted EKG results: Yes EKG Interpretation: Positive for: other (Atrial paced) Assessment & Plan Assessment: 82-year-old male presenting with acute lactic acidosis and a constellation of rigors, cough, abdominal pain, vomiting with history of gallstone pancreatitis, pulmonary embolism, ischemic bowel Plan: 1. Acute metabolic acidosis. Secondary to lactic acid, unclear etiology, new problem this provider, further workup indicated. It is unclear whether the patient is hypo perfusing secondary to infection or ischemic bowel, and will further investigate with CT angio of the abdomen pelvis, as well as CT imaging of the chest -reviewed outside records including 04/27/[address] Clemente santiago, characterizing patient's most recent hospitalization for bleeding at the anastomosis site of his small-bowel resection, patient's anticoagulation was held and careful use of anticoagulation was instituted moving forward given his history of bleeding in the GI tract -get respiratory viral panel, blood cultures and chest CT to further investigate possibility of pneumonia -discussed with Dr. Wicho Middleton in the emergency department, he has reported to me the patient has received levofloxacin and IV fluids given the possibility of sepsis, will continue the IV fluids at 100 cc/hour, continue Levaquin daily 2. Hypoxia. Acute, new problem this provider, further workup indicated. Given the patient's history of pulmonary embolism and his currently subtherapeutic dosing if he were to be experiencing an acute PE, and he is prudent to further evaluate with CT angiogram of the chest to rule out active PE which would necessitate adjustment of the patient's current Eliquis dosing and would explain his current hypoxia -the patient currently has impaired expiratory air movement comma but no overt wheezes or bronchial breath sounds, will place him on scheduled duo nebs given his underlying history of COPD but hold off on steroids at the present time, given that this does not appear to be in overt COPD exacerbation, at least not at this time -continue on supplemental oxygen -the patient will bring his own CPAP device tomorrow 3. Hypertension. Hold lisinopril tonight given possibility of infection, reinitiate tomorrow at bedtime 4. BPH. Continue patient's tamsulosin this evening 5. Acute abdominal pain. Secondary to either viral syndrome, recurrent gallstone pancreatitis, or ischemic bowel -getting CT angiogram of the abdomen to rule out ischemic bowel, this should also elucidate whether there is any javy pancreatic inflammation or free fluid around the biliary system, and if such abnormalities are present, would recommend considering MRCP in a.m. As well as GI consultation given the patient' s extensive history of gallstone pancreatitis requiring papillotomy and stent placement from ERCP -will check lipase, liver panel Diet. Regular as tolerated Prophylaxis. High risk patient, currently on Eliquis 2.5 mg twice daily, continue Code. Full per patient, is MD POA Disposition. Anticipated discharge uncertain this time, anticipated length stay is greater than 48 hr for reasonable medical necessity including acute metabolic acidosis, acute hypoxia, requiring further workup in the setting of high risk comorbid conditions including previous ischemic bowel, pulmonary embolism, gallstone pancreatitis, possible pneumonia.
[2017-10-26] MEDS ORDERED: ALBUTEROL 60 PUFFS/8 GM MDI IH PRN (22:30)
--- NOTE | 2017-10-26 23:04 | PDMN ---
Medical Necessity Medical necessity: C/M review: Patient meets INPT criteria under [facility] M-05 Abdominal pain, undiagnosed: Acute metabolic acidosis secondary to lactic acid of unclear etiology, , acute hypoxia, 88% RA sat, acute abdominal pain of unclear etiology, possible pneumonia, VBG lactic acid 2.9, CO2 20, requiring planned CTA chest and abdomen, ongoing IV Levaquin QD, IV NS 100 ml/hr. infusion , Duonebs QID, pulse oximetry, supplemental O2, acute inpt PT/OT, comorbid hypertension, BPH, vomiting prior to this admission, history of DVT (recurrent with pulmonary emboli in 2015), ÁLVARO with home CPAP, type 2 diabetes, hyperlipidemia, ischemic bowel, carotid stenosis, gallstone pancreatitis, pathologic bradycardia, permanent pacemaker, cholecystectomy with papillotomy and biliary stent placement, small bowel resection April 2017 with bleeding at the anastomosis site, chronic anticoagulation with Eliquis, patient/s recently ill with influenza B and pneumonia. anticipates > 2 MN LOS for ongoing med nec for eval and TX of above. Patient is Medicare Advantage which follows guidelines [facility] puts forth.
[2017-10-26] MEDS: NS 1,000 ML IV SCH (23:18)
[2017-10-26] MEDS: TAMSULOSIN HCL 0.4 MG CAP PO SCH (23:21)
[2017-10-27] MEDS: IPRATROPIUM/ALBUTEROL 3 ML DEYVIAL IH SCH ×5 (01:00→22:54)
[2017-10-27 05:12] LABS: PLATELET COUNT 151 10^3/uL (150-400)
[2017-10-27] MEDS: guaiFENesin 600 MG TAB.ER PO SCH ×2 (08:56→22:00)
[2017-10-27] MEDS: APIXABAN 5 MG TAB PO SCH ×2 (08:56→21:59)
[2017-10-27] MEDS: CHOLECALCIFEROL VIT D3 1,000 UNITS TAB PO SCH (08:58)
[2017-10-27] MEDS: FLUoxetine 20 MG CAP PO SCH (08:58)
[2017-10-27] MEDS ORDERED: ENOXAPARIN 40 MG/0.4 ML SYR SC SCH (09:00)
[2017-10-27] MEDS: NS 1,000 ML IV SCH (09:14)
[2017-10-27] MEDS: URSODIOL 500 MG PO SCH ×2 (11:23→22:00)
[2017-10-27] MEDS: cefTRIAXone 2 GM in STERILE WATER INJ 20 ML IV SCH (13:03)
--- NOTE | 2017-10-27 14:19 | GCON ---
[f rep st] CONSULTATION INFECTIOUS DISEASES CONSULTATION DATE OF CONSULTATION: 10/27/2017 REFERRING PHYSICIAN: Asad Earl MD REASON FOR CONSULTATION: Gram-negative katharine bacteremia. HISTORY OF PRESENT ILLNESS: Patient is an 82-year-old male with a past medical history of ischemic c olitis and gallstone pancreatitis, who I am asked to see in consultation for polymicrobial gram-negat shilpi katharine bacteremia. The patient describes having difficulty with stone formation post cholecystectom y and has required ERCP several times for stone removal. Patient developed upper abdominal pain inte rmittently in the 2 days preceding admission. This was exacerbated by intake of fatty foods. Patien t subsequently developed the onset of rigors, which lasted approximately 1 hour, yesterday. He did n ot have a fever but had significant diffuse sweating. This was associated with nausea and vomiting. He describes having a soft stool daily for approximately 2 weeks. Given the uncontrollable rigors, he presented to the emergency department for further evaluation. Initial temperature was 38.1. Bloo d cultures x2 were obtained with 1 of 2 sets showing growth of E coli and Klebsiella oxytoca. He has not experienced further rigors. His abdominal pain has resolved. He does not have any urinary trac t symptoms. He does describe having a cough over the last several days with dyspnea on exertion. Th e patient was started empirically on levofloxacin. CT scan of the chest and abdomen were performed w ith findings showing no evidence of ischemic colitis with presence of intrahepatic biliary ductal air which was seen previously in 2017. Sigmoid diverticulosis without diverticulitis was noted. Chest CT did not show evidence of pulmonary embolism or focal consolidation. Given the above findings, I a m now asked to assist in his ongoing management. PAST MEDICAL HISTORY: Ischemic bowel, gallstone pancreatitis, recurrent stone formation, BPH, hypert ension, obstructive sleep apnea, type 2 diabetes, DVT, bradycardia requiring pacemaker placement, hyp erlipidemia. PAST SURGICAL HISTORY: Cholecystectomy with papillotomy and biliary stenting, pacemaker placement, T URP, small bowel resection. CURRENT MEDICATIONS: Levofloxacin 750 mg IV daily, DuoNeb q.6 hours, albuterol nebs as needed, Eliqu is 2.5 mg p.o. b.i.d., Lipitor 10 mg p.o. q.h.s., Tessalon Perles as needed, vitamin D 1,000 units p. o. daily, Prozac 20 mg p.o. daily, Mucinex 1200 mg p.o. b.i.d., metformin 500 mg p.o. b.i.d., Ursodio l 500 mg orally b.i.d., Flomax 0.4 mg p.o. q.h.s., vitamin B 1000 mcg intramuscularly monthly. ALLERGIES: Neomycin/polymyxin, iodine. SOCIAL HISTORY: Patient does not smoke or drink alcohol. No animal exposure or travel. FAMILY HISTORY: Father had bowel abscess; had influenza B in July. REVIEW OF SYSTEMS: Outside that noted in the HPI, remainder of 10-system review is unremarkable. PHYSICAL EXAMINATION: VITAL SIGNS: Temperature, maximum, 38.1. Temperature, current, 36.8. Heart rate 68, respiratory rate 14, blood pressure 118/59, oxygen saturation 93% on room air. GENERAL: Juan Ramon aranda is an obese male in no acute distress. He appears nontoxic. He is fatigued appearing. HEENT: There is no scleral icterus, conjunctival injection, or conjunctival petechiae. Oropharynx is alda r without lesions. Mucous membranes are moist. There is no nasal discharge. There is no tenderness over the frontal, maxillary, or mastoid area. NECK: Supple without palpable lymphadenopathy or thy romegaly. CHEST: Clear to auscultation bilaterally without adventitious sounds. The respiratory ef fort is normal. CARDIOVASCULAR: Regular rate and rhythm and rhythm without murmurs, gallops, or rub s. Pacemaker is present in the left upper chest with no tenderness. ABDOMEN: Soft, nontender, nond istended. There is no palpable organomegaly. Bowel sounds are present. MUSCULOSKELETAL: There is no cyanosis, clubbing, or edema. SKIN: No stigmata of endocarditis. Skin is warm and dry to touch. NEUROLOGIC: Patient is alert and interacts appropriately with examiner. Cranial nerves 2-12 are g rossly intact. Muscle tone and bulk are normal. LYMPHATICS: No cervical or supraclavicular nodes p alpable. LABORATORY DATA: White blood cell count 10.3, hematocrit 36.7, platelets 151, neutrophils 80%. Seru m creatinine 0.9, AST 85, ALT 111, bilirubin 1.1, alkaline phosphatase 72, albumin 2.9, procalcitonin 0.3, PCR testing for influenza is negative. Urinalysis is negative. Venous lactate is 1.8, INR 1.[address] of the abdomen and pelvis, as well as chest, as outlined above. IMPRESSION: Polymicrobial bacteremia due to Escherichia coli and Klebsiella oxytoca: Most likely, t his is of gastrointestinal etiology with biliary system being most likely, based on patient's prior h istory of recurrent stones and prior need for biliary stenting. Ultrasound is pending for further ev aluation to assess for any obstructive changes. Query if the patient may have passed a stone based o n recent symptoms which was associated with bacteremia. No evidence of perforation present on CT sca n of the abdomen. Patient does have underlying cough but no evidence of pneumonia. RECOMMENDATIONS: 1. Ceftriaxone 2 g IV q.24 hours (favor over levofloxacin based on lower resistance rates in E coli) . 2. Will add metronidazole 500 mg IV q.8 hours for activity against anaerobic patricia. 3. Await ultrasound findings. Patient will require gastroenterology consultation and potentially fu rther evaluation with ERCP. 4. Will repeat blood cultures in this setting to document clearing of bacteremia, given polymicrobia l nature of disease. 5. Would cancel stool pathogen panel by PCR testing, given lack of diarrhea and clinical findings do not suggest bacteremia has arisen from a gastroenteritis. Thank you for this consultation. We will continue to follow the patient with you. /[id number]/MODL
--- NOTE | 2017-10-27 14:24 | ASMTCMCOM ---
CM Note CM Note Notes: Pt admitted for lactic acidosis and probable pneumonia. History is extensive and includes COPD, DM, HTN, PPM, sleep apnea (pt uses a CPAP), anemia, PE/DVT, pancreatitis, BPH. Pt is and lives with his . Per MD notes, pt would like his to be his MDPOA. PT has cleared pt. OT recommends home vs home with home care. Per OT notes, pt's is very involved in his care and will be at home to assist pt upon discharge. Anticipate pt will likely discharge home independently with family support when medically stable. CM will continue to follow for any potential needs. Current Discharge Plan: Home independently with family support or home care, if needed Date Signed: 10/27/2017 02:23 PM Electronically Signed By:Tarah Andrade RN
--- NOTE | 2017-10-27 16:07 | HOSPPROG ---
Hospitalist Progress Note Assessment/Plan: Subjective Patient states that his abdominal discomfort and nausea vomiting have improved today. The lab did contact me with the results of his BC twice daily as it showed both E coli as well as Klebsiella. I reviewed the case with Dr. Wicho De La Cruz with Infectious Disease who kindly consulted on the case. I also reviewed the case with Dr. Erickson with Gastroenterology. Patient's family was present at the bedside I did answer all their questions in regard to workup and our thoughts on what is the likely cause of his symptoms. Objective Vital signs as detailed below Physical exam General-patient appears comfortable he is awake alert conversant no acute distress he does not appear toxic. Cardiac-regular rate and rhythm no murmurs appreciated. Pulmonary-clear to auscultation with normal respiratory effort. Abdominal exam-nondistended. No tenderness elicited with deep palpation at the epigastrium or right upper quadrant. No tenderness otherwise noted around the abdomen. Bowel sounds present and normal. -no Ball catheter in place Extremities-no significant edema Musculoskeletal-no calf pain with palpation Labs as detailed below Assessment and plan 1. Bacteremia-with 2 different bacteria being isolated and his history of biliary obstruction the current thought is that his symptoms likely represent transient bacteremia secondary to biliary obstruction. Considering his overall clinical improvement and overall stability this appears resolved. CT imaging did not show any evidence of biliary obstruction. I ordered abdominal ultrasound today which is well did not show any evidence of biliary obstruction or choledocholithiasis. I reviewed the case with Dr. Erickson with Gastroenterology and he will consult on the case to give an opinion on further intervention versus continuing the current course and following. Also reviewed the case with Dr. De La Cruz and continue antibiotics per his recommendations. 2. Metabolic acidosis-resolved continue IV fluids. 3. Acute hypoxic respiratory failure-no evidence of pulmonary embolism seen on CT imaging. Atelectasis was noted which may be the etiology considering his abdominal symptoms. Wean oxygen as able. 4. Abdominal pain-seemed usually well controlled today he seems to be tolerating a diet as well. 5. Transaminitis-his bilirubin and alkaline phosphatase levels are normal. His AST has improved from 171-85. His ALT has reduced from 132-111. Repeat ordered for tomorrow. 6. Hypertension-lisinopril currently on hold in light of bacteremia. 7. Obstructive sleep apnea-continue home CPAP therapy. 8. Diabetes mellitus type 2-continue metformin 500 mg twice a day. Other we may need to hold temporarily in light of contrast. 9. Hyperlipidemia-continue atorvastatin. 10. Depression-continue Prozac. 11. History of deep vein thrombosis-continue Eliquis 12. Disposition-will place PT and OT consults. I would anticipate he will likely return back to home once medically ready. 45 min of time dedicated to patient care today over 50% of which was educated counseling and coordination of care. Objective: Vital Signs Temp Pulse Resp BP Pulse Ox 36.9 C 63 14 120/65 94 10/27/17 15:25 10/27/17 15:25 10/27/17 15:25 10/27/17 15:25 10/27/17 15:25 Laboratory Results 10/27/17 04:50 10/27/17 04:50 10/26/17 10/27/17 10/28/17 05:59 05:59 05:59 Intake Total 4178 Output Total 1750 525 Balance 2428 -525 PT 15.2 SEC (12.0-15.0) H 10/26/17 20:15 INR 1.18 (0.83-1.16) H 10/26/17 20:15 ICD10 Worksheet Patient Problems: Problems Problem Status Onset Pneumonia Acute Sepsis Acute Abdominal pain Acute Fever and chills Acute GIB (gastrointestinal bleeding) Acute Hypotension Acute Lightheaded Acute Liver function test abnormality Acute Pulmonary embolism Acute
[2017-10-27] MEDS: BENZONATATE 100 MG CAP PO PRN (17:58)
[2017-10-27] MEDS ORDERED: LISINOPRIL 20 MG TAB PO SCH (21:00)
[2017-10-27] MEDS: TAMSULOSIN HCL 0.4 MG CAP PO SCH (22:00)
[2017-10-27] MEDS: ATORVASTATIN CALCIUM 10 MG TAB PO SCH (22:00)
[2017-10-28 05:07] LABS: PLATELET COUNT 140 10^3/uL (150-400)
[2017-10-28] MEDS: IPRATROPIUM/ALBUTEROL 3 ML DEYVIAL IH SCH ×3 (06:04→15:43)
[2017-10-28] MEDS: CHOLECALCIFEROL VIT D3 1,000 UNITS TAB PO SCH ×2 (08:00→08:46)
[2017-10-28] MEDS: FLUoxetine 20 MG CAP PO SCH ×2 (08:01→08:47)
[2017-10-28] MEDS: guaiFENesin 600 MG TAB.ER PO SCH ×3 (08:01→21:24)
[2017-10-28] MEDS: URSODIOL 500 MG PO SCH ×2 (08:02→20:34)
--- NOTE | 2017-10-28 08:18 | GCON ---
[f rep st] CONSULTATION DATE OF CONSULTATION: 10/28/2017 REFERRING PHYSICIAN: Asad Earl MD REASON FOR CONSULTATION: For evaluation of abdominal pain and bacteremia. Dear Dr. Earl: Thank you very kindly for asking me to evaluate this patient in consultation for a chief complaint of abdominal pain. He is an 82-year-old gentleman with previous choledocholithiasis requiring ERCP for stone extraction with the last procedure being about a year ago and finding recurrent choledocholith iasis who presents with epigastric abdominal pain, bilious vomiting, fevers, and rigors. His LFTs we re elevated on admission including both some mild cholestasis and transaminitis. A CT scan of the ch est, abdomen, and pelvis with angiographic contrast was negative for embolic or mesenteric ischemic f eatures to explain the disease. He did have pneumobilia which was stable since previous imaging but no ductal dilatation. He has been found to have a Klebsiella and E coli bacteremia. With antibiotic therapy, his LFTs have almost normalized, and his pain has resolved. Interestingly, the patient has been reporting episodes of abdominal pain episodically for several months. He had actually schedule d a visit in the outpatient center with our office to evaluate this. He denies any previous episodes as severe as his last one and, over the preceding 24 hours, has now improved significantly. Of note , he has had previous pancreatitis with his biliary obstructing problems, but his lipase on this admi ssion was 90. I am asked to assist with further evaluation and management. PAST MEDICAL HISTORY: Significant for: 1. Choledocholithiasis with complicating features of biliary obstruction and pancreatitis. 2. Cholelithiasis with a history of cholecystectomy. 3. Recent bacteremia. 4. 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 5. The patient has had a recent surgery for small bowel resection for what sounds like an ischemic s mall bowel. He had a complication of postoperative bleeding thought to be due to hemorrhage from the anastomosis. I do not have full details of this illness. 6. Diabetes. 7. Obstructive sleep apnea, on CPAP. 8. Hypertension. 9. BPH. 10. Basal cell carcinoma. 11. Bradycardia with pacemaker placement. 12. Hyperlipidemia. PAST SURGICAL HISTORY: Cholecystectomy. He has had ERCP with biliary sphincterotomy and previous st ent placement. He has had a pacemaker placed for pathologic bradycardia, TURP, small-bowel resection in April of 2017 with anastomotic bleeding. It seems as though this was related to ischemia of th e small bowel, unclear if this was embolic or some other process. FAMILY HISTORY: Significant for pulmonary embolism, renal cell cancer. His was ill with jitendra yung in June of 2017. No recent sick contacts or illness. No family history of pancreatitis or l iver disease. MEDICATIONS: On admission include B12, Prozac, Lidex cream, atorvastatin, lisinopril, metformin, vit wright D3, albuterol inhaler, Eliquis 2.5 mg p.o. b.i.d., Ursodiol. SOCIAL HISTORY: No tobacco, no alcohol. No substance abuse. He is retired and lives in [place]. H is primary care provider is Dr. Ying. ALLERGIES: bacitracin, iodine, neomycin, polymyxin. REVIEW OF SYSTEMS: On admission: CONSTITUTIONAL: He had chills and rigors, but this has resolved. Some malaise. Appetite seems good today. Denies night sweats or weight loss. HEENT: No headache. No visual disturbances. No difficulty swallowing. No ear pain. No facial congestion or nasal dri p. No epistaxis. PULMONARY: He has had a mild cough, but this has been nonproductive. No chest pa in or shortness of breath. No dyspnea with exertion. He has not exhibited or described any more pro blems with his sleep apnea of late. He is compliant with his CPAP. CARDIOVASCULAR: He denies chest pain, palpitations, or syncope. GI: He has had nausea with bilious emesis. He says his last bowel movement was 2 days ago prior to admission and was somewhat loose but brown. No melena, no hematoch ezia. Denies heartburn or dysphagia. His abdominal pain has resolved but was previously described a s epigastric and up into the right side but no radiation to the back or flank. MUSCULOSKELETAL: He reports some back pain today extending across his mid back. He thinks it is from sleeping in the bed . Bed is uncomfortable he describes. No other joint pain, deformity, or swelling. DERMATOLOGIC: Daksha juárez denies jaundice or pruritus. He denies focal rash. GENITOURINARY: Negative for hematuria. He de nies any overt flank pain or dysuria. ENDOCRINE: He denies heat or cold intolerance outside of havi ng the chills and feeling cold earlier on admission which has now resolved. No polyuria or polydipsi a. PSYCHIATRIC: Negative for insomnia, depression, or anxiety. NEUROLOGIC: He denies any falls, f ocal weakness, or paresthesias. PHYSICAL EXAMINATION: VITAL SIGNS: Blood pressure is 125/68, his heart rate is 63. His mean arteri al pressure is 87. Respirations are between 14 and 16 with an oxygenation of 92% to 95% on 2 L of na lewis cannula. His T-max overnight was 37.1 with a T current of 36.8. GENERAL: A comfortable appeari ng male in no acute distress. HEENT: Oropharynx is clear with moist mucous membranes. Sclerae are not icteric. NECK: Supple. No carotid bruit or jugular venous distention. No overt cervical adeno yasemin. No supraclavicular adenopathy. PULMONARY: Good air exchange with clear breath sounds. CARD IOVASCULAR: He has a pacemaker in the left chest which is normal appearing. Regular rate and rhythm . Heart sounds are somewhat distant but no overt murmur. GI: The abdomen is obese but soft. Bowel sounds are normal. There is no tenderness or rebound. No guarding. No organomegaly or ascites. No abdominal bruit. RHEUMATOLOGIC: No overt joint deformity, swelling, or warmth. DERMATOLOGIC: No jaundice. NEUROLOGIC: Alert to person, place, and time. Normal speech and mood. Able to provide h is own history. Moves all extremities normally. Facial expressions are normal without any asymmetry . Sensation is intact grossly to light touch in the extremities and across his torso without overt d eficits. DATABASE: Laboratories show a white blood count of 7.6, hematocrit is 35.3 with an MCV of 93.9, plat elets are 142. INR is 1.18 with a PT of 15.2 and a PTT of 29.6. Sodium 142, potassium 3.9, chloride 112, bicarbonate 24, BUN 10, creatinine 0.8. On admission, 10/26/2017, LFTs showed a total bilirubi n of 1.4, an unconjugated bilirubin of 0.7 which is elevated, conjugated bilirubin of 0.7 which is el evated, AST is 171, ALT 132, alkaline phosphatase 101, lipase is 90. Blood cultures from 10/26/2017 grew Escherichia coli and Klebsiella oxytoca. IMAGING: Includes a CT scan of the chest, abdomen, and pelvis which, other than showing an absent ga llbladder and pneumobilia, is unremarkable for liver, biliary, or pancreatic illness. The pancreas i s imaging normally without evidence or radiographic features of pancreatitis. An abdominal ultrasoun d is reviewed from October 27 which also shows pneumobilia but no ductal dilatation and a normal-appear ing liver. Of note, I believe the sensitivity of the radiographic evaluations for stone disease is l imited in the presence of pneumobilia at least on the ultrasound. IMPRESSION: 1. Abdominal pain, epigastric and right upper quadrant. 2. Nausea with bilious vomiting. 3. Fever. 4. Bacteremia with a bacterial profile very suspicious for biliary organisms. 5. Elevated liver function tests with an obstructive pattern. RECOMMENDATIONS: 1. I believe the best intervention for the patient will be another ERC for interrogation of the bili talib anatomy. I do not believe the CT and ultrasound are sensitive enough to eliminate the possibilit y of obstructive processes, and his clinical presentation seems very crisp for biliary obstruction wi th resulting sepsis. While this has improved dramatically, I think the likelihood of recurrence is h igh, and while he might have passed a small stone or debris, I think ductal clearance seems very impe rative especially given his age and comorbidity. 2. He is on anticoagulation for recurrent pulmonary embolism in the setting of deep venous thrombosi s. His Eliquis will need to be interrupted for 2 days prior to ERCP which can be bridged with Loveno x. 3. I will discuss with the hospitalist today the plan for his anticoagulation with intent to hold hi s Eliquis and initiate Lovenox. 4. Will arrange for his ERCP on Saturday after he has been unanticoagulated for the 2 days. 5. Continue antibiotic coverage. 6. His diet can be regular for now as long as he does not develop worsening pain or recurrent fever. 7. Monitor LFTs. 8. Preprocedural labs to include a PT, INR, lipase, LFTs, metabolic panel, and CBC. 9. Anesthesia consultation for his ERCP as he is a very high risk for intervention due to his cardio pulmonary disease including his sleep apnea, hypertension, diabetes, recurrent DVT with pulmonary emb olism, bradycardia, and age. 10. Further recommendations to follow. I would definitely keep him hospitalized until the ERCP can be completed. /[id number]/MODL
[2017-10-28] MEDS: cefTRIAXone 2 GM in STERILE WATER INJ 20 ML IV SCH (08:48)
[2017-10-28] MEDS: ENOXAPARIN 120 MG/0.8 ML SYR SC SCH ×2 (10:30→20:33)
--- NOTE | 2017-10-28 12:48 | PCMIDPN ---
Assessment/Plan: Assessment: Polymicrobial bacteremia with E coli and Klebsiella oxytoca. Patient with a long history of biliary tract issues and infections. This stems from his proclivity to form stones not only in the gallbladder which has remotely been resected but in the bile duct itself. The stones cause periodic obstruction and occasional infection. Patient is now being seen by Gastroenterology and ERCP is being planned. This will likely happen on Saturday. Meantime we will continue him on ceftriaxone and metronidazole. Plan: 1. Continue patient on ceftriaxone and metronidazole. 2. Await sensitivity panels on both gram-negative isolates from the blood. 3. Follow follow-up blood cultures. 4. Await ERCP procedure on Saturday. Subjective: Patient is resting pleasantly in his hospital bed. He notes that he is feeling better. His appetite is retained. No fevers or chills. Denies rash. Objective: Ceftriaxone # 2 Metronidazole # 1 Vital Signs Temp Pulse Resp BP Pulse Ox 36.5 C 62 16 130/70 H 91 L 10/28/17 11:54 10/28/17 11:54 10/28/17 11:54 10/28/17 11:54 10/28/17 11:54 Laboratory Results 10/28/17 04:52 10/28/17 04:52 10/27/17 10/28/17 10/29/17 05:59 05:59 05:59 Intake Total 4178 960 Output Total 1750 1625 700 Balance 0139 -665 -700 - Physical Exam General Appearance: WD/WN, alert, no apparent distress, non-toxic Respiratory: lungs clear, normal breath sounds, No respiratory distress Cardiac/Chest: regular rate, rhythm, No tachycardia Abdomen: non-tender, soft Skin: normal color, warm/dry, No rash Neuro/Psych: alert, normal mood/affect, oriented x 3 ICD10 Worksheet Patient Problems: Problems Problem Status Onset Pneumonia Acute Sepsis Acute Abdominal pain Acute Fever and chills Acute GIB (gastrointestinal bleeding) Acute Hypotension Acute Lightheaded Acute Liver function test abnormality Acute Pulmonary embolism Acute
--- NOTE | 2017-10-28 14:54 | HOSPPROG ---
Hospitalist Progress Note Assessment/Plan: Subjective Patient states continue improvement with his abdominal pain. I reviewed his case with Dr. Erickson this morning. He does feel that doing an ERCP would be warranted at the current time to accurately assess his anatomy. We discussed that we will allow the patient to eat a regular diet for now as he is doing quite well. We will make him NPO on Saturday evening after midnight. We will also bridge him with Lovenox while stopping Eliquis considering his history of recurrent DVTs and pulmonary embolism in 2016. I reviewed this plan with the patient's and the patient's daughter who is a physician zoning assistant and works in emergency room medicine. All questions were answered. They seemed agreeable to the plan set in motion today. Objective Vital signs as detailed below Physical exam General-patient appears comfortable he is awake alert conversant it. He does not appear toxic. He is somewhat hard of hearing. Cardiac-regular rate and rhythm no murmurs appreciated. Pulmonary-clear to auscultation with normal respiratory effort. Abdomen-nondistended. Nontender. Specifically no tenderness elicited with deep palpation at the epigastrium and right upper quadrant. Normal bowel sounds. -no Ball catheter in place Extremities-no significant edema Musculoskeletal no calf pain with palpation Labs as detailed below Assessment and plan 1. Bacteremia-patient's blood culture showed evidence of both E coli as well as Klebsiella with the initial PCR testing. I anticipate having final culture and sensitivities tomorrow. I appreciate Infectious disease's help on the case. Continue with current ceftriaxone and Flagyl as recommended. We suspect the source may have been from a result biliary obstruction. I reviewed the case with Dr. Erickson and the plan is for ERCP on Saturday. His Eliquis and metformin have been held in anticipation of this procedure. 2. Acute hypoxic respiratory failure-patient had a history of a pulmonary embolism in 2016. He did have a CT angiography of his chest during this admission which did not show any evidence of pulmonary embolism. It did show atelectasis. I was able to take him off of oxygen during my evaluation in he maintain normal saturations on room air. 3. Abdominal pain-appears well controlled today and he is tolerating a regular diet. 4. Transaminitis-these appear to be resolving. 5. Hypertension-lisinopril was placed on hold when he 1st came into the hospital especially in light of the bacteremia. His blood pressures appear to be stabilizing and gradually rising. I anticipate the need to resume lisinopril in the coming days. 6. Obstructive sleep apnea-patient is compliant with home CPAP therapy with supplemental oxygen. 7. Diabetes mellitus type 2-holding metformin in light of contrast from CT and in anticipation of ERCP. 8. Hyperlipidemia-continue atorvastatin. 9. History of recurrent deep vein thrombosis and pulmonary embolism in 2016- patient has been on chronic anticoagulation with Eliquis. This has been placed on hold in anticipation of ERCP. Therapeutic dosing of Lovenox has been started this morning with the order to stop in the evening of 424 in anticipation of ERCP. 10. Depression-patient is on Prozac 10 mg daily 11. Disposition-I would anticipate patient would be stable enough to return home when medically stable. We can see how he does with PT and OT over the coming days. 45 min of time dedicated to patient's care today over 50% of which was dedicated to counseling coordination of care on largely in discussions with the patient's family on the current plan in place as well as with discussions with Dr. Erickson and Dr. Power with Infectious Disease Objective: Vital Signs Temp Pulse Resp BP Pulse Ox 36.5 C 62 16 130/70 H 91 L 10/28/17 11:54 10/28/17 11:54 10/28/17 11:54 10/28/17 11:54 10/28/17 11:54 Laboratory Results 10/28/17 04:52 10/28/17 04:52 10/27/17 10/28/17 10/29/17 05:59 05:59 05:59 Intake Total 4178 960 Output Total 1750 1625 700 Balance 4818 -665 -700 PT 15.2 SEC (12.0-15.0) H 10/26/17 20:15 INR 1.18 (0.83-1.16) H 10/26/17 20:15 ICD10 Worksheet Patient Problems: Problems Problem Status Onset Pneumonia Acute Sepsis Acute Abdominal pain Acute Fever and chills Acute GIB (gastrointestinal bleeding) Acute Hypotension Acute Lightheaded Acute Liver function test abnormality Acute Pulmonary embolism Acute
[2017-10-28] MEDS ORDERED: metFORMIN SR 500 MG TAB PO SCH (18:00)
[2017-10-28] MEDS: TAMSULOSIN HCL 0.4 MG CAP PO SCH (20:33)
[2017-10-28] MEDS: ATORVASTATIN CALCIUM 10 MG TAB PO SCH (20:33)
[2017-10-28] MEDS: BENZONATATE 100 MG CAP PO PRN (21:25)
[2017-10-29] MEDS: IPRATROPIUM/ALBUTEROL 3 ML DEYVIAL IH SCH ×5 (00:27→22:47)
[2017-10-29 05:35] LABS: PLATELET COUNT 159 10^3/uL (150-400)
[2017-10-29] MEDS: URSODIOL 500 MG PO SCH ×2 (09:00→21:03)
[2017-10-29] MEDS: cefTRIAXone 2 GM in STERILE WATER INJ 20 ML IV SCH (09:15)
[2017-10-29] MEDS: FLUoxetine 20 MG CAP PO SCH (09:16)
[2017-10-29] MEDS: guaiFENesin 600 MG TAB.ER PO SCH ×2 (09:16→20:48)
[2017-10-29] MEDS: CHOLECALCIFEROL VIT D3 1,000 UNITS TAB PO SCH (09:17)
--- NOTE | 2017-10-29 09:57 | HOSPPROG ---
Hospitalist Progress Note Assessment/Plan: Assessment and plan Polymicrobial bacteremia sec to E coli and klebsiella. Source may be recent biliary obstruction noting prior h/o this. GI following. -cont ceftriaxone and Flagyl -ERCP in am (Eliquis on hold) AHRF - h/o PE in 2016. CTA neg for PE here. 92% ra. Abdominal pain - again suspicious for biliary source, LFT's trending down -ERCP in am as above, NPO at midnight Hypertension- Lisinopril held for lowish BP upon arrival, now normotensive -resume lisinopril as indicated Obstructive sleep apnea-patient is compliant with home CPAP therapy with supplemental oxygen. Diabetes mellitus type 2-holding metformin in light of contrast from CT and in anticipation of ERCP. -SSI Hyperlipidemia-continue atorvastatin. History of recurrent deep vein thrombosis and pulmonary embolism in 2016- patient has been on chronic anticoagulation with Eliquis. This has been placed on hold in anticipation of ERCP. D/C Lovenox as may be overlapping with Eliquis , which I anticipate ~48 hrs to clear. -resume Eliquis post-intervention when cleared by G Depression- cont prozac Disposition- cont inpt, PT/OT Subjective: Pt feels fine. EAting pancakes and sausage, no pain. No N/V. No fevers. No complaints. Objective: Vital Signs Temp Pulse Resp BP Pulse Ox 37 C 60 14 122/76 H 92 10/29/17 08:00 10/29/17 08:00 10/29/17 08:00 10/29/17 08:00 10/29/17 08:00 Laboratory Results 10/29/17 04:50 10/29/17 04:50 10/28/17 10/29/17 10/30/17 05:59 05:59 05:59 Intake Total 960 270 Output Total 1625 1650 Balance -665 -1380 PT 15.2 SEC (12.0-15.0) H 10/26/17 20:15 INR 1.18 (0.83-1.16) H 10/26/17 20:15 - Physical Exam Constitutional: no apparent distress Eyes: PERRL Ears, Nose, Mouth, Throat: moist mucous membranes Cardiovascular: regular rate and rhythym Respiratory: no respiratory distress, other (occ faint crackle) Gastrointestinal: normoactive bowel sounds, soft, non-tender abdomen Skin: warm Musculoskeletal: full muscle strength Neurologic: AAOx3 Psychiatric: interacting appropriately ICD10 Worksheet Patient Problems: Problems Problem Status Onset Pneumonia Acute Sepsis Acute Abdominal pain Acute Fever and chills Acute GIB (gastrointestinal bleeding) Acute Hypotension Acute Lightheaded Acute Liver function test abnormality Acute Pulmonary embolism Acute
--- NOTE | 2017-10-29 10:44 | SOAPPROG ---
SOAP Progress Note Assessment/Plan: Assessment: 1. Biliary obstruction 2. Biliary sepsis 3. RUQ and epigastric pain 4. Fever Plan: 1. ERC tomorrow with MAC 2. Continue antibiotics 3. NPO after midnight 4. Eliquis on hold 5. AM LFTs, PT/INR, CMP, Lipase 10/29/17 10:44 Subjective: CC: Fever Improved. No recurrent fever or pain on antibiotics. Objective: Vital Signs Temp Pulse Resp BP Pulse Ox 37 C 60 14 122/76 H 92 10/29/17 08:00 10/29/17 08:00 10/29/17 08:00 10/29/17 08:00 10/29/17 08:00 Laboratory Results 10/29/17 04:50 10/29/17 04:50 10/28/17 10/29/17 10/30/17 05:59 05:59 05:59 Intake Total 960 270 Output Total 1625 1650 Balance -665 -1380 PT 15.2 SEC (12.0-15.0) H 10/26/17 20:15 INR 1.18 (0.83-1.16) H 10/26/17 20:15 Physical Exam - Physical Exam General Appearance: WD/WN, alert, no apparent distress EENT: normal ENT inspection, No scleral icterus (R), No scleral icterus (L) Neck: full range of motion, supple Respiratory: lungs clear Cardiac/Chest: regular rate, rhythm Abdomen: normal bowel sounds, non-tender, soft, No organomegaly, No distended, No guarding, No rebound, No ascites Skin: warm/dry, No jaundice Neuro/Psych: normal mood/affect, oriented x 3 ICD10 Worksheet Patient Problems: Problems Problem Status Onset Pneumonia Acute Sepsis Acute Abdominal pain Acute Fever and chills Acute GIB (gastrointestinal bleeding) Acute Hypotension Acute Lightheaded Acute Liver function test abnormality Acute Pulmonary embolism Acute
--- NOTE | 2017-10-29 11:11 | ASMTCMCOM ---
CM Note CM Note Notes: CM spoke w/ Dr. De La Cruz regarding d/c POC. It is uncertain if pt will need ivabx at time of d/c. Pt will have an ESRP tomorrow. Needs are TBD. CM to follow. Plan: TBD Date Signed: 10/29/2017 11:11 AM Electronically Signed By:ESEMA Moreno
[2017-10-29] MEDS: BENZONATATE 100 MG CAP PO PRN ×2 (11:46→20:48)
--- NOTE | 2017-10-29 17:59 | PCMIDPN ---
Assessment/Plan: Assessment/Plan: * Polymicrobial gram-negative katharine bacteremia due to cholangitis: Marked clinical improvement with resolution of fever and normalization of white blood cell count. Plans for ERCP to assess for any residual stones tomorrow which have not been noted on imaging but given history remain of concern. Continue ceftriaxone and metronidazole pending susceptibility of gram-negative rods. May be able to discontinue metronidazole post ERCP if cultures do not show evidence of anaerobic organisms. 10/29/17 17:56 Subjective: Patient feels significantly improved. No ongoing abdominal pain. No recurrent rigors. Complains of persistent dry cough. Objective: Vital Signs Temp Pulse Resp BP Pulse Ox 36.6 C 65 16 114/62 90 L 10/29/17 17:38 10/29/17 17:38 10/29/17 17:38 10/29/17 17:38 10/29/17 17:38 Laboratory Results 10/29/17 04:50 10/29/17 04:50 10/28/17 10/29/17 10/30/17 05:59 05:59 05:59 Intake Total 960 270 Output Total 1625 1650 Balance -665 -1380 Ceftriaxone # 3 Metronidazole # 2 Blood cultures 10/28/2017 no growth to date Blood cultures 10/26/2017 E coli, Klebsiella oxytoca Laboratory Tests 10/29/17 04:50 Total Bilirubin 0.6 AST 32 ALT 66 Alkaline Phosphatase 73 Albumin 3.1 L - Physical Exam General Appearance: alert, no apparent distress EENT: No scleral icterus, No thrush Respiratory: lungs clear, No respiratory distress Cardiac/Chest: regular rate, rhythm Abdomen: non-tender, No distended ICD10 Worksheet Patient Problems: Problems Problem Status Onset Pneumonia Acute Sepsis Acute Abdominal pain Acute Fever and chills Acute GIB (gastrointestinal bleeding) Acute Hypotension Acute Lightheaded Acute Liver function test abnormality Acute Pulmonary embolism Acute
[2017-10-29] MEDS: TAMSULOSIN HCL 0.4 MG CAP PO SCH (20:48)
[2017-10-29] MEDS: ATORVASTATIN CALCIUM 10 MG TAB PO SCH (20:48)
[2017-10-30 05:12] LABS: PLATELET COUNT 175 10^3/uL (150-400)
[2017-10-30] MEDS: IPRATROPIUM/ALBUTEROL 3 ML DEYVIAL IH SCH ×2 (05:41→12:38)
[2017-10-30] MEDS: cefTRIAXone 2 GM in STERILE WATER INJ 20 ML IV SCH (07:54)
[2017-10-30] MEDS: FLUoxetine 20 MG CAP PO SCH (08:22)
[2017-10-30] MEDS: CHOLECALCIFEROL VIT D3 1,000 UNITS TAB PO SCH (08:22)
[2017-10-30] MEDS: URSODIOL 500 MG PO SCH ×2 (08:23→21:55)
[2017-10-30] MEDS: guaiFENesin 600 MG TAB.ER PO SCH ×2 (08:23→21:56)
[2017-10-30] MEDS ORDERED: GLUCAGON HCL 1 MG VIAL ONE (08:56)
[2017-10-30] MEDS ORDERED: IOTHALAMATE MEG (CONRAY) 50 ML VIAL IV ONE (08:57)
[2017-10-30] MEDS ORDERED: LR 1,000 ML IV ONE (10:07)
--- NOTE | 2017-10-30 10:13 | HOSPPROG ---
Hospitalist Progress Note Assessment/Plan: Assessment and plan Polymicrobial bacteremia sec to E coli and klebsiella. Suspect cholangitis source, note h/o prior ERCPs. GI following. -cont ceftriaxone and Flagyl -ERCP today per GI AHRF - h/o PE in 2016. CTA neg for PE here. 92% ra. Abdominal pain - again suspicious for biliary source, LFT's trending down -ERCP today as above Hypertension- Lisinopril held for lowish BP upon arrival, now normotensive -resume lisinopril as indicated Obstructive sleep apnea-patient is compliant with home CPAP therapy with supplemental oxygen. Diabetes mellitus type 2-holding metformin in light of contrast from CT and in anticipation of ERCP. -SSI Hyperlipidemia-continue atorvastatin. History of recurrent deep vein thrombosis and pulmonary embolism in 2016- patient has been on chronic anticoagulation with Eliquis. This has been placed on hold in anticipation of ERCP. -resume Eliquis in am, ok'd by GI Depression- cont prozac Disposition- cont inpt, PT/OT Subjective: Doing fine, no complaints. No fevers. NPO for ERCP today. Objective: Vital Signs Temp Pulse Resp BP Pulse Ox 36.6 C 64 16 145/79 H 90 L 10/29/17 22:46 10/29/17 22:46 10/29/17 22:46 10/29/17 22:46 10/29/17 22:46 Laboratory Results 10/30/17 04:45 10/30/17 04:45 10/29/17 10/30/17 10/31/17 05:59 05:59 05:59 Intake Total 270 2120 Output Total 1650 Balance -1380 2120 PT 15.2 SEC (12.0-15.0) H 10/26/17 20:15 INR 1.18 (0.83-1.16) H 10/26/17 20:15 - Physical Exam Constitutional: no apparent distress Eyes: PERRL Ears, Nose, Mouth, Throat: moist mucous membranes Cardiovascular: regular rate and rhythym Respiratory: no respiratory distress Gastrointestinal: normoactive bowel sounds, soft, non-tender abdomen Skin: warm Musculoskeletal: full muscle strength Neurologic: AAOx3 Psychiatric: interacting appropriately ICD10 Worksheet Patient Problems: Problems Problem Status Onset Pneumonia Acute Sepsis Acute Abdominal pain Acute Fever and chills Acute GIB (gastrointestinal bleeding) Acute Hypotension Acute Lightheaded Acute Liver function test abnormality Acute Pulmonary embolism Acute
[2017-10-30] MEDS ORDERED: PROPOFOL 200 MG/20 ML VIAL ONE ×2 (10:49→11:59)
[2017-10-30] MEDS ORDERED: fentaNYL 100 MCG/2 ML INJ ONE (10:51)
[2017-10-30] MEDS ORDERED: ROCURONIUM 50 MG/5 ML VIAL ONE (10:51)
[2017-10-30] MEDS ORDERED: ALBUTEROL HFA ANES ONLY 200 PUFFS/8.5 GM MDI IH ONE (11:28)
[2017-10-30] MEDS ORDERED: ONDANSETRON 4 MG/2 ML VIAL ONE (11:51)
--- NOTE | 2017-10-30 12:17 | GIREPORT ---
[facility] Surgical Services - Endoscopy Department Patient Name: Ken Villar Procedure Date: 10/30/2017 10:22 AM Patient Type: Inpatient Attending MD/ ER Physician: Ren Erickson MD Procedure: ERCP Indications: Suspected bile duct stone(s), Elevated liver enzymes Providers: Ren Erickson MD Medicines: General Anesthesia, Ceftriaxone and Flagyl per inpatient dosing. Complications: No immediate complications. Description of Procedure: After obtaining informed consent, the scope was passed under direct vis ion. Throughout the procedure, the patient's blood pressure, pulse, and oxyg en saturations were monitored continuously. The Duodenalscope was introduc ed through the mouth, and advanced to the duodenum and used to inject cont rast into the bile duct. The ERCP was accomplished without difficulty. The patient tolerated the procedure well. Findings: A shop blacksmith film of the abdomen was obtained. Surgical clips, consistent wi th a previous cholecystectomy, were seen in the area of the right upper quad rant of the abdomen. The esophagus was successfully intubated under direct vision. The scope was advanced from the mouth to the duodenum. The phar ynx, larynx and associated structures, as well as the upper GI tract, were n ormal. A magnet was placed over the pacemaker. A biliary sphincterotomy had be en performed. The sphincterotomy appeared open. The bile duct was deeply cannulated with the short-nosed traction sphincterotome. Contrast was injected. I personally interpreted the bile duct images. Ductal flow of contrast was adequate. Image quality was excellent. Contrast extended t o the entire biliary tree. The entire biliary tree contained multiple stones, the largest of which was 10 mm in diameter. The entire biliary tree was diffusely dilated, with a stone causing an obstruction. The largest mariusz meter was 15 mm. The lower third of the main bile duct contained a single localized stenosis 2 mm in length. A 0.035 inch straight standard wire was passed into the biliary tree. A 12 mm biliary sphincterotomy was made w ith a monofilament traction (standard) sphincterotome using ERBE electrocaute ry. There was no post-sphincterotomy bleeding. The biliary tree was swept w ith a 15 mm balloon starting at the bifurcation. All stones were removed. Not crystal was found. Estimated Blood Loss: Estimated blood loss: none. Post Op Diagnosis: - Prior biliary endoscopic sphincterotomy appeared open. 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 The stricture was secondary to previous stone(s). The diameter of the stenosis was 9mm and patent but more narrowed than the dilated biliary tree which was at its greatest 15mm. This may need to be stented with a metal stent to expand it or possible a ri gid balloon dilation of the duct. - Surgical diversion is also an option (hepatico-jejunostomy) but I fee l is higher risk and not first choice. - The entire biliary tree was dilated, with a stone causing an obstruct ion. - Choledocholithiasis was found. Complete removal was accomplished by biliary sphincterotomy and balloon extraction. - A biliary sphincterotomy was performed. - The biliary tree was swept and nothing was found. Recommendation: - Clear liquid diet today. - Advance diet as tolerated tomorrow. - Check liver enzymes (AST, ALT, alkaline phosphatase, bilirubin) in th e morning. - Use broad spectrum antibiotics per ID recommendations. - His recent cholangitis is most certainly related to recurrent choledocholithiasis which is due to biliary ductal dilation, resulting stasis and likely a distal stone related stenosis in the distal CBD immediately upstream of the major papilla. - Continue antibiotics per ID - Repeat ERC for stricture dilation or stenting to treat the distal CBD stenosis in 3 months. - Return patient to [facility] for ongoing care. - Thank you for allowing me to be involved in the care of your patient. Attending Participation: I personally performed the entire procedure without the assistance of a fellow, resident or surg ical paraprofessional education assistant. Ren Erickson MD Ren Erickson MD 10/30/2017 12:17:29 PM This report has been signed electronicallyDavid MD Georgina Number of Addenda: 0 Note Initiated On: 10/30/2017 10:22 AM [email or web address]
[2017-10-30] MEDS ORDERED: ONDANSETRON 4 MG/2 ML VIAL IVP PRN (12:20)
[2017-10-30] MEDS ORDERED: NALOXONE HCL 0.4 MG/ML INJ IVP PRN ×2 (12:20→13:00)
[2017-10-30] MEDS ORDERED: ALBUTEROL 3 ML DEYVIAL IH PRN (12:20)
--- NOTE | 2017-10-30 12:21 | POSTANESTH ---
Post Anesthetic Evaluation Cardiovascular Status: Normal, Stable Respiratory Status: Similar to Pre-op Cond., Tx Decrease in SpO2, Requires Airway Assist Level of Consciousness/Mental Status: Mildly Sleepy, Arousable Pain Control: Adequate, Prn Tx Ordered Nausea/Vomiting Control: Adequate, Prn Tx Ordered Complications Possibly Related to Anesthesia: None Noted (Admitted with Bronchitis, Bronchospastic on Emergence, Albuterol given)
--- NOTE | 2017-10-30 12:22 | PDANEPAE ---
ANE History of Present Illness ERCP ANE Past Medical History - Pulmonary History Hx Oxygen in Use at Home: Yes O2 in Use at Home (L/minute): 2 Hx Sleep Apnea: Yes Sleep Apnea Screening Result - Last Documented: Positive - Endocrine History Hx Diabetes: Yes - Chronic Pain History Chronic Pain: No ANE Review of Systems Review of Systems: - Exercise capacity Exercise capacity: limited by disability ANE Patient History - Allergies Allergies/Adverse Reactions: bacitracin zinc [From Neosporin] Allergy (Severe, Verified 10/26/17 20:15) INFECTION iodine [Iodine] Allergy (Severe, Verified 10/26/17 20:15) FELT VERY HOT neomycin sulfate [From Neosporin] Allergy (Severe, Verified 10/26/17 20:15) INFECTION polymyxin B sulfate [From Neosporin] Allergy (Severe, Verified 10/26/17 20:15) INFECTION balsam curtis Allergy (Intermediate, Verified 10/26/17 20:15) PIMPLES ON LEGS bacitracin Allergy (Unknown, Verified 10/26/17 20:15) INFECTION gramicidin D Allergy (Unknown, Verified 10/26/17 20:15) INFECTION polymyxin B Allergy (Unknown, Verified 10/26/17 20:15) INFECTION bacitracin zinc Allergy (Unknown, Uncoded 10/26/17 20:15) INFECTION neomycin sulfate Allergy (Unknown, Uncoded 10/26/17 20:15) INFECTION polymyxin B sulfate Allergy (Unknown, Uncoded 04/19/17 14:35) INFECTION - Home Medications Home Medications: Cyanocobalamin (Vitamin B-12) [Cyanocobalamin Injection] 1,000 mcg IM Q30D 08/16 [Last Taken 10/06/17] FLUoxetine [Prozac 20 MG (*)] 20 mg PO DAILY 08/16/11 [Last Taken 10/26/17] Fluocinonide 0.05% [Lidex 0.05% Cream] 1 dionisio TP DAILY PRN 08/16/11 [Last Taken 04/24/17] Atorvastatin Calcium [Lipitor 10 mg (*)] 10 mg PO HS 09/16/15 [Last Taken ] Lisinopril [Zestril 20 mg (*)] 20 mg PO HS 09/16/15 [Last Taken 10/25/17] metFORMIN HCL [Metformin HCl ER] 500 mg PO BIDMEAL 09/16/15 [Last Taken 09:00] Cholecalciferol Vit D3 [Vitamin D3 (*)] 1,000 units PO DAILY 04/24/17 [Last Taken 10/26/17] Albuterol [Ventolin Hfa Inhaler] 2 puffs IH TID PRN 10/26/17 [Last Taken ] Apixaban [Eliquis] 2.5 mg PO BID 10/26/17 [Last Taken 10/26/17 09:00] Ursodiol 500 mg PO BID 10/26/17 [Last Taken 10/26/17 09:00] - NPO status NPO Since - Liquids (Date): 10/30/17 NPO Since - Liquids (Time): 00:00 NPO Since - Solids (Date): 10/30/17 NPO Since - Solids (Time): 00:00 - Smoking Hx Smoking Status: Never smoked - Alcohol Use Alcohol Use: Rarely ANE Labs/Vital Signs - Labs Result Diagrams: 10/30/17 04:45 10/30/17 04:45 - Vital Signs Blood Pressure: 145/79 Heart Rate: 64 Respiratory Rate: 16 O2 Sat (%): 90 Height: 175.26 cm Weight: 112.4 kg ANE Physical Exam - Airway Neck exam: FROM Mallampati Score: Class 2 Mouth exam: normal dental/mouth exam - Pulmonary Pulmonary: expiratory wheeze - Cardiovascular Cardiovascular: regular rate and rhythym - ASA Status ASA Status: III ANE Anesthesia Plan Anesthesia Plan: general endotracheal anesthesia Urgent/Emergent Case: Wendy lebron completed preop but documented later for safe timely pt care
[2017-10-30] MEDS ORDERED: CEPACOL LOZENGE PO ONE ×3 (12:46→13:21)
--- NOTE | 2017-10-30 13:05 | PCMIDPN ---
Assessment/Plan: Assessment: Polymicrobial bacteremia with E coli and Klebsiella oxytoca. Patient with a long history of biliary tract issues and infections. This stems from his proclivity to form stones not only in the gallbladder which has remotely been resected but in the bile duct itself. The stones cause periodic obstruction and occasional infection. Patient continues on ceftriaxone and metronidazole. Clinically he feels much better. The Klebsiella sensitivities reflect very permissive sensitivities. E coli sensitivities are pending secondary to difficult to isolate the E coli from the Klebsiella. ERCP performed this morning. Stones removed without complication. Plan: 1. Continue patient on ceftriaxone and metronidazole. 2. Await sensitivity panels on both gram-negative isolates from the blood. 3. Follow follow-up blood cultures. 4. Follow clinical course. 10/30/17 13:03 Subjective: Patient is in good spirits. Reports no fevers or chills. Clinically feels improved. Tolerating ceftriaxone and metronidazole without issue. Objective: Ceftriaxone # 4 Metronidazole # 3 Vital Signs Temp Pulse Resp BP Pulse Ox 37 C 64 16 145/79 H 90 L 10/30/17 11:57 10/30/17 12:22 10/30/17 12:22 10/30/17 12:22 10/30/17 12:22 Laboratory Results 10/30/17 04:45 10/30/17 04:45 10/29/17 10/30/17 10/31/17 05:59 05:59 05:59 Intake Total 270 2120 Output Total 1650 Balance -1380 2120 - Physical Exam General Appearance: WD/WN, alert, no apparent distress, non-toxic Cardiac/Chest: regular rate, rhythm, No tachycardia Extremities: non-tender, normal inspection Abdomen: non-tender, soft Skin: normal color, warm/dry, No rash Neuro/Psych: alert, normal mood/affect, oriented x 3 ICD10 Worksheet Patient Problems: Problems Problem Status Onset Pneumonia Acute Sepsis Acute Abdominal pain Acute Fever and chills Acute GIB (gastrointestinal bleeding) Acute Hypotension Acute Lightheaded Acute Liver function test abnormality Acute Pulmonary embolism Acute
[2017-10-30] MEDS ORDERED: IPRATROPIUM/ALBUTEROL 3 ML DEYVIAL IH PRN (15:30)
[2017-10-30] MEDS: ACETAMINOPHEN 325 MG TAB PO PRN (17:50)
[2017-10-30] MEDS: NS 1,000 ML IV SCH (21:56)
[2017-10-30] MEDS: ATORVASTATIN CALCIUM 10 MG TAB PO SCH (21:56)
[2017-10-30] MEDS: TAMSULOSIN HCL 0.4 MG CAP PO SCH (21:56)
[2017-10-31] MEDS: ACETAMINOPHEN 325 MG TAB PO PRN (00:48)
[2017-10-31] MEDS: cefTRIAXone 2 GM in STERILE WATER INJ 20 ML IV SCH (08:47)
[2017-10-31] MEDS: CHOLECALCIFEROL VIT D3 1,000 UNITS TAB PO SCH (08:49)
[2017-10-31] MEDS: FLUoxetine 20 MG CAP PO SCH (08:49)
[2017-10-31] MEDS: guaiFENesin 600 MG TAB.ER PO SCH ×2 (08:50→21:03)
[2017-10-31] MEDS: APIXABAN 5 MG TAB PO SCH ×2 (08:50→21:03)
[2017-10-31] MEDS: URSODIOL 500 MG PO SCH ×2 (08:51→21:02)
--- NOTE | 2017-10-31 10:36 | HOSPPROG ---
Hospitalist Progress Note Assessment/Plan: Assessment and plan Polymicrobial bacteremia sec to E coli and klebsiella - pansensitive. Presumed cholangitis source, note h/o prior ERCPs. GI following. -cont ceftriaxone and Flagyl, will discuss possible transition to oral FQ with ID -rpt BCx's NGTD Cholangitis - +H/O recurrent infection / ERCP's. LFT's normalized. Pain resolved s/p ERCP yesterday with removal of many large stones. No signs of pancreatitis, tolerating clears this am. -advance diet today -discussed with Dr. Erickson, will need repeat ERCP in ~8 weeks, possible stent given recurrent stones AHRF - h/o PE in 2016. CTA neg for PE here. 92% ra. Hypertension- Lisinopril held for lowish BP upon arrival, now relatively normotensive -resume lisinopril as indicated, likely at lower dose Obstructive sleep apnea- cont home CPAP Diabetes mellitus type 2-holding metformin in light of contrast from CT -SSI -resume MTF at d/c Hyperlipidemia-continue atorvastatin. 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 Tolerating clears. No abdominal pain. No N/V. No fevers. No CP or SOB. Objective: Vital Signs Temp Pulse Resp BP Pulse Ox 36.7 C 73 16 130/82 H 95 10/31/17 08:00 10/31/17 08:00 10/31/17 08:00 10/31/17 08:00 10/31/17 08:00 Laboratory Results 10/30/17 04:45 10/30/17 04:45 10/30/17 10/31/17 11/01/17 05:59 05:59 05:59 Intake Total 0 1594 925 Output Total 1999 Balance 2120 -406 925 PT 15.2 SEC (12.0-15.0) H 10/26/17 20:15 INR 1.18 (0.83-1.16) H 10/26/17 20:15 - Physical Exam Constitutional: no apparent distress Eyes: PERRL Ears, Nose, Mouth, Throat: moist mucous membranes Cardiovascular: regular rate and rhythym Respiratory: no respiratory distress, clear to auscultation Gastrointestinal: normoactive bowel sounds, soft, non-tender abdomen Skin: warm Musculoskeletal: full muscle strength Neurologic: AAOx3 Psychiatric: interacting appropriately ICD10 Worksheet Patient Problems: Problems Problem Status Onset Pneumonia Acute Sepsis Acute Abdominal pain Acute Fever and chills Acute GIB (gastrointestinal bleeding) Acute Hypotension Acute Lightheaded Acute Liver function test abnormality Acute Pulmonary embolism Acute
--- NOTE | 2017-10-31 10:46 | PCMIDPN ---
Assessment/Plan: #Polymicrobial bacteremia with E Coli, Klebsiella source due to biliary obstruction now resolved s/p ERCP. Blood cultures demonstrate clearance 2017 --continue IV ceftriaxone while hospitalized. Okay to discharge on levofloxacin 750 mg p.o. Daily based on creatinine clearance 60s. Extensively discussed risks and benefits of Levaquin with patient and his at bedside. Photosensitivity and interaction with cations including calcium, zinc and magnesium. Patient is also advised to take with small amount food to minimize risk of nausea and avoid significant sun exposure by wearing hat, sunscreen. Levaquin and other antibiotics in this class have been associated with VERY RARE but disabling and potentially irreversible serious adverse reactions that have occurred together, including tendinitis and tendon rupture, peripheral neuropathy, and confusion. Discontinue levofloxacin immediately if you develop a serious reaction and call our office. --stop date of abx 11/08/17 for 14 days of therapy --dc Flagyl #H/o Recurrent biliary stones meds, Day#6 abx ceftriaxone 2gm IV daily #5 flagyl 500mg IV q8 Microbiology 10/28/17 04:52 Blood Cx (2) ngtd 10/26/17 20:30 Blood Escherichia Coli Klebsiella Oxytoca/Raoutella Subjective: No residual abdominal pain. Patient reports feeling well. Objective: Vital Signs Temp Pulse Resp BP Pulse Ox 36.7 C 73 16 130/82 H 95 10/31/17 08:00 10/31/17 08:00 10/31/17 08:00 10/31/17 08:00 10/31/17 08:00 Laboratory Results 10/30/17 04:45 10/30/17 04:45 10/30/17 10/31/17 11/01/17 05:59 05:59 05:59 Intake Total 2120 1594 925 Output Total 1999 Balance 2120 -406 925 - Physical Exam General Appearance: alert, no apparent distress, obese EENT: No thrush Respiratory: lungs clear, No accessory muscle use Neck: supple Cardiac/Chest: regular rate, rhythm Extremities: No pedal edema Abdomen: normal bowel sounds, non-tender, soft Male Genitalia: No zamora Skin: normal color, warm/dry, No rash Neuro/Psych: alert, normal mood/affect, oriented x 3 - Line/s PIV Lines: other (Right hand), No drainage, No erythema - Time Spent With Patient Time Spent with Patient: greater than 35 minutes Time Spent with Patient: Greater than 35 minutes spent on this patients care, greater than 50% of time spent counseling, educating, and coordinating care regarding the above mentioned plan. ICD10 Worksheet Patient Problems: Problems Problem Status Onset Pneumonia Acute Sepsis Acute Abdominal pain Acute Fever and chills Acute GIB (gastrointestinal bleeding) Acute Hypotension Acute Lightheaded Acute Liver function test abnormality Acute Pulmonary embolism Acute
--- NOTE | 2017-10-31 12:11 | SOAPPROG ---
SOAP Progress Note Assessment/Plan: Assessment: 1. Biliary obstruction 2. Biliary sepsis 3. RUQ and epigastric pain 4. Choledocholithiasis Plan: 1. ADAT 2. Antibiotics per ID 3. Repeat ERC in 12 weeks for re-evaluation of the biliary tree and distal stenosis for possible dilation and/or metal stenting to help with prevention of recurrence 4. Stop ursodiol once they are done with the last refill as it is not helping and costly for the family 5. Ok to resume anti-coagulation today 6. Ok for discharge from my standpoint. Please call with questions. 10/31/17 12:09 Subjective: CC: abdominal pain. Resolved. Objective: Vital Signs Temp Pulse Resp BP Pulse Ox 36.7 C 74 18 138/93 H 90 L 10/31/17 11:33 10/31/17 11:33 10/31/17 11:33 10/31/17 11:33 10/31/17 11:33 Laboratory Results 10/30/17 04:45 10/30/17 04:45 10/30/17 10/31/17 11/01/17 05:59 05:59 05:59 Intake Total 2120 1594 925 Output Total 1999 Balance 2120 -406 925 PT 15.2 SEC (12.0-15.0) H 10/26/17 20:15 INR 1.18 (0.83-1.16) H 10/26/17 20:15 Physical Exam - Physical Exam General Appearance: WD/WN, no apparent distress EENT: normal ENT inspection Neck: supple Respiratory: lungs clear, normal breath sounds Cardiac/Chest: regular rate, rhythm Abdomen: normal bowel sounds, non-tender, soft, No distended, No guarding, No rebound ICD10 Worksheet Patient Problems: Problems Problem Status Onset Pneumonia Acute Sepsis Acute Abdominal pain Acute Fever and chills Acute GIB (gastrointestinal bleeding) Acute Hypotension Acute Lightheaded Acute Liver function test abnormality Acute Pulmonary embolism Acute
--- NOTE | 2017-10-31 12:31 | ASMTCMCOM ---
CM Note CM Note Notes: Spoke w/RN, pt will stay tonight and dc home tomorrow w/support of . He can dc w/po antibiotics and was cleared by PT. will be available to help as well as daughter. DC Plan: Independent Date Signed: 10/31/2017 12:31 PM Electronically Signed By:Eileen Velázquez RN
[2017-10-31] MEDS: TAMSULOSIN HCL 0.4 MG CAP PO SCH (21:03)
[2017-10-31] MEDS: ATORVASTATIN CALCIUM 10 MG TAB PO SCH (21:03)
[2017-11-01] MEDS: guaiFENesin 600 MG TAB.ER PO SCH (08:13)
[2017-11-01] MEDS: FLUoxetine 20 MG CAP PO SCH (08:13)
[2017-11-01] MEDS: URSODIOL 500 MG PO SCH (08:14)
[2017-11-01] MEDS: APIXABAN 5 MG TAB PO SCH (08:14)
[2017-11-01] MEDS: CHOLECALCIFEROL VIT D3 1,000 UNITS TAB PO SCH (08:14)
[2017-11-01] MEDS: cefTRIAXone 2 GM in STERILE WATER INJ 20 ML IV SCH (08:15)
[2017-11-01 12:39] VITALS: BP 125/70
--- NOTE | 2017-11-01 13:33 | PDDCSUM ---
Discharge Summary Discharge Summary: Dates of service 10/26-11/01/17 Consultations: GI, ID Procedures: ERCP, chest CTA, abd CT Hospital course by problem: Polymicrobial bacteremia sec to E coli and klebsiella - pansensitive. Presumed cholangitis source, note h/o prior ERCPs. Discharged on levofloxacin per ID. Cholangitis/biliary obstruction - +H/O recurrent infection / ERCP's. LFT's normalized. Pain resolved s/p ERCP with removal of many large stones. Will need to f/u for repeat ERCP in 8 weeks for possible stent placement AHRF - h/o PE in 2016. CTA neg for PE here. 92% ra. Hypertension- Lisinopril held for lowish BP upon arrival, now relatively normotensive -resume lisinopril as indicated, likely at lower dose Obstructive sleep apnea- cont home CPAP Diabetes mellitus type 2-holding metformin in light of contrast from CT -SSI -resume MTF at d/c Hyperlipidemia-continue atorvastatin. 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
[2017-11-05] MEDS ORDERED: CYANO/VITAMIN B12 1000 MCG/ML VIAL IM SCH (09:00)
== END 2017-11-01 14:51 | disposition home or self-care (01) | DRG 444 ==
LOC: F3E 22:59
PROVIDERS: ADMIT Internal Medicine; ATTEND Internal Medicine
PROC: 0FC98ZZ Extirpation of Matter from Common Bile Duct, Via Natural or Artificial Opening Endoscopic (ICD-10-PCS; principal; 2017-10-30 10:30)
DX: K80.31 Calculus of bile duct with cholangitis, unspecified, with obstruction (principal); R78.81 Bacteremia; B96.20 Unspecified Escherichia coli [E. coli] as the cause of diseases classified elsewhere; B96.89 Other specified bacterial agents as the cause of diseases classified elsewhere; J96.01 Acute respiratory failure with hypoxia; E87.2 Acidosis; G47.33 Obstructive sleep apnea (adult) (pediatric); I10 Essential (primary) hypertension; E11.9 Type 2 diabetes mellitus without complications; E78.5 Hyperlipidemia, unspecified; J44.9 Chronic obstructive pulmonary disease, unspecified; N40.0 Benign prostatic hyperplasia without lower urinary tract symptoms; F32.9 Major depressive disorder, single episode, unspecified; Z95.0 Presence of cardiac pacemaker; Z79.01 Long term (current) use of anticoagulants; Z79.84 Long term (current) use of oral hypoglycemic drugs; Z86.711 Personal history of pulmonary embolism; Z86.718 Personal history of other venous thrombosis and embolism; Z90.49 Acquired absence of other specified parts of digestive tract
CPT/HCPCS: 96374; 97161-GP; 97165-GO; G8978-GP-CI; G8979-GP-CI; G8980-GP-CI; G8987-GO-CI; G8988-GO-CI; G8989-GO-CI; J0696; J1610; J1650; J1956; J2405; J2704; J3010; Q9961; Q9967